=== PATIENT | female | born 1930 | race Caucasian/White ===

== ENCOUNTER → 2017-04-16 | Outpatient (CLI) | payer MEDICARE ==
[2016-05-19 22:36] VITALS: BP 186/83
--- NOTE | 2017-04-16 10:45 | KCIC ---
HAND RIGHT 3V History: Right hand pain and weakness worse for 3 weeks Comparison: None. Findings: 3 views of the right hand are submitted. There is bone demineralization. 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 There is fusion of the fourth and fifth distal interphalangeal joints. No acute fracture is identified. Impression: 1. 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 There is fusion of the fourth and fifth distal interphalangeal joints. 2. There is bone demineralization. Electronically signed by: Vern Boo MD (04/16/2017 10:41 AM) [id number]
== END | disposition home or self-care (01) ==
LOC: KCIC 10:19
PROVIDERS: ATTEND Nurse Practitioner Family
DX: M19.041 Primary osteoarthritis, right hand (principal); M81.0 Age-related osteoporosis without current pathological fracture; R53.1 Weakness
CPT/HCPCS: 73130

== ENCOUNTER → 2017-05-07 | Outpatient (CLI) | payer MEDICARE ==
[2016-05-19 22:36] VITALS: BP 186/83
--- NOTE | 2017-05-07 16:41 | KCIC ---
AP radiograph of the abdomen 05/07/2017 CLINICAL HISTORY: Abdominal pain and bloating for one week. An AP supine digital radiograph of the abdomen/pelvis was obtained. Surgical clips are seen within the right upper quadrant of the abdomen consistent with a cholecystectomy. The patient is post kyphoplasty type procedure involving the T12, L1 and L3 vertebral bodies. The abdominal bowel gas pattern is nonobstructive. A moderate to large amount of stool is seen throughout the colon. Calcifications are seen within the pelvis consistent with phleboliths. There is diffuse osteopenia of the visualized bony structures. Degenerative changes are seen involving the lower thoracic and throughout the lumbar spine and both hips. IMPRESSION: Nonobstructive bowel gas pattern. Moderate to large amount of stool is seen throughout the colon. Electronically signed by: Kingsley Bravo MD (05/07/2017 4:38 PM) [id number]
== END | disposition home or self-care (01) ==
LOC: KCIC 15:32
PROVIDERS: ATTEND Nurse Practitioner Family
DX: R10.9 Unspecified abdominal pain (principal); R14.0 Abdominal distension (gaseous); M85.80 Other specified disorders of bone density and structure, unspecified site
CPT/HCPCS: 74000

== ENCOUNTER 2018-01-10 21:51 | Emergency (ER) | payer MEDICARE ==
[2018-01-10 22:40] LABS: ADD MAN DIFF? NO
[2018-01-10 22:46] LABS: BASO # 0.1 x10^3/uL (0.0-0.2); BASO % 1 % (0-3); EOS # 0.2 x10^3/uL (0.0-0.7); EOS % 3 % (0-3); HEMATOCRIT 47.8 % (36.0-47.0); HEMOGLOBIN 16.4 g/dL (12.0-15.5); LYMPH # 2.1 x10^3/uL (1.0-4.8); LYMPH % 28 % (24-48); MEAN CORPUSCULAR HEMOGLOBIN 30 pg (25-35); MEAN CORPUSCULAR HGB CONC 34 g/dL (31-37); MEAN CORPUSCULAR VOLUME 89 fL (79-100); MONO # 0.6 x10^3/uL (0.0-1.1); MONO % 8 % (0-9); NEUT # 4.5 x10^3uL (1.8-7.7); NEUT % 60 % (31-73); PLATELET COUNT 144 x10^3/uL (140-400); RED BLOOD COUNT 5.39 x10^6/uL (3.50-5.40); RED CELL DISTRIBUTION WIDTH 14.9 % (11.5-14.5); WHITE BLOOD COUNT 7.5 x10^3/uL (4.0-11.0)
[2018-01-10 22:55] LABS: ANION GAP 11 (6-14); BLOOD UREA NITROGEN 24 mg/dL (7-20); BUN/CREATININE RATIO 27 (6-20); CALCIUM 10.3 mg/dL (8.5-10.1); CARBON DIOXIDE 28 mmol/L (21-32); CHLORIDE 104 mmol/L (98-107); CREATININE 0.9 mg/dL (0.6-1.0); GFR 59.4; GLUCOSE 104 mg/dL (70-99); POTASSIUM 3.9 mmol/L (3.5-5.1); SODIUM 143 mmol/L (136-145)
[2018-01-10] MEDS: LABETALOL 20 MG/4 ML DISP.SYRIN. IVP (22:55)
[2018-01-10 23:01] LABS: ALBUMIN/GLOBULIN RATIO 1.1 (1.0-1.7); ALK PHOS 133 U/L (46-116); ALT (SGPT) 23 U/L (14-59); AST (SGOT) 16 U/L (15-37); TOTAL BILIRUBIN 0.3 mg/dL (0.2-1.0); TOTAL PROTEIN 7.5 g/dL (6.4-8.2)
[2018-01-10 23:02] LABS: TROPONINI < 0.017 ng/mL (0.000-0.055)
== END 2018-01-11 00:20 | disposition home or self-care (01) ==
LOC: ER 01-11 00:20
DX: I10 Essential (primary) hypertension (principal); R42 Dizziness and giddiness; E78.00 Pure hypercholesterolemia, unspecified; Z88.5 Allergy status to narcotic agent; Z88.6 Allergy status to analgesic agent; Z88.8 Allergy status to other drugs, medicaments and biological substances
CPT/HCPCS: 36415; 51701; 80053; 84484; 85025; 93005; 96374; 99285-25; J3490

== ENCOUNTER 2018-01-14 21:02 | Emergency (ER) | payer MEDICARE ==
[2018-01-14] MEDS: amLODIPine BESYLATE 5 MG TABLET PO (21:56)
== END 2018-01-14 22:45 | disposition home or self-care (01) ==
LOC: ER 21:02
DX: I10 Essential (primary) hypertension (principal); E78.00 Pure hypercholesterolemia, unspecified; Z88.5 Allergy status to narcotic agent; Z88.6 Allergy status to analgesic agent; Z88.8 Allergy status to other drugs, medicaments and biological substances
CPT/HCPCS: 93005; 99284-25

== ENCOUNTER → 2018-02-13 | Outpatient (CLI) | payer MEDICARE | END | disposition home or self-care (01) | LOC: KCIC CT 11:02 | DX: J32.2 Chronic ethmoidal sinusitis (principal); R42 Dizziness and giddiness; I10 Essential (primary) hypertension | CPT/HCPCS: 70486 ==

== ENCOUNTER 2018-03-31 10:08 | Inpatient (IN) | payer MEDICARE ==
[2018-03-31] VITALS (9 sets, daily range): BP systolic 93–138; BP diastolic 46–77
[~2018-03-31] VITALS: Ht 162.6 cm; Wt 79.4 kg
[~2018-03-31 10:08] MED LIST: ACET325T9 PO; AMLO5TAB7 PO; BRIM5DRO3 OP; FLUT9.9S NS; LATA2.5D3 EACHEYE; MAGN400C PO; MELA10CA PO; MULT1TAB52 PO; OSEL75CA PO; OXYB5TAB7 PO; SIMV20TA PO; TRAM50TA PO; UBID100C26 PO; ZOLP5TAB PO; [UNRECOGNIZED DRUG - OTHER] PO
[2018-03-31] MEDS ORDERED: ASPIRIN 325 MG TABLET PO ONE (10:30)
--- NOTE | 2018-03-31 10:33 | PHYS DOC ---
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 she woke up this morning, felt her heart was racing. Patient denies any chest pain, no trouble breathing, no history of A. fib or atrial flutter. Patient denies any history of thyroid problem. Patient denies any nausea vomiting, no fever, no cough, no abdominal pain. Review of Systems Review of Systems Constitutional: Denies fever or chills [] Eyes: Denies change in visual acuity, redness, or eye pain [] HENT: Denies nasal congestion or sore throat [] Respiratory: Denies cough or shortness of breath [] Cardiovascular: no chest pain, no shortness of air, positive for heart palpitation. GI: Denies abdominal pain, nausea, vomiting, bloody stools or diarrhea [] : Denies dysuria or hematuria [] Musculoskeletal: Denies back pain or joint pain [] Integument: Denies rash or skin lesions [] Neurologic: Denies headache, focal weakness or sensory changes [] Endocrine: Denies polyuria or polydipsia [] All other systems were reviewed and found to be within normal limits, except as documented in this note. Current Medications Current Medications Current Medications Medications (Trade) Dose Ordered Sig/Pacheco Start Time Stop Time Status Last Admin Dose Admin Aspirin (Titus Aspirin) 325 mg 1X ONCE 03/31/18 10:30 03/31/18 10:37 DC 03/31/18 11:02 325 MG Diltiazem HCl (Cardizem) 20 mg 1X ONCE 03/31/18 11:00 03/31/18 11:01 DC 03/31/18 11:18 20 MG Diltiazem HCl 125 mg/Dextrose 125 ml @ 0 mls/hr 1X STAT 03/31/18 11:13 03/31/18 11:21 DC 03/31/18 11:36 5 MLS/HR Allergies Allergies Allergies Coded Allergies Type Severity Reaction Last Updated Verified desloratadine Allergy Intermediate 05/19/16 Yes diclofenac Allergy Intermediate 05/19/16 Yes hydrocodone Allergy Intermediate "doesn't work", constipation 11/03/17 Yes lisinopril Allergy Intermediate 05/19/16 Yes meclizine Allergy Intermediate 05/19/16 Yes naphazoline Allergy Intermediate 05/19/16 Yes naproxen Allergy Intermediate 05/19/16 Yes ropinirole Allergy Intermediate 05/19/16 Yes sertraline Allergy Intermediate 05/19/16 Yes venlafaxine Allergy Intermediate 05/19/16 Yes codeine Adverse Reaction Intermediate "doesn't work", constipation 11/03/17 Yes Physical Exam Physical Exam Constitutional: Well developed, well nourished, no acute distress, non-toxic appearance. [] HENT: Normocephalic, atraumatic, bilateral external ears normal, oropharynx moist, no oral exudates, nose normal. [] Eyes: PERRLA, EOMI, conjunctiva normal, no discharge. [] Neck: Normal range of motion, no tenderness, supple, no stridor. [] Cardiovascular:rapid irregular heart rate. no murmur [] Lungs & Thorax: Bilateral breath sounds clear to auscultation [] Abdomen: Bowel sounds normal, soft, no tenderness, no masses, no pulsatile masses. [] Skin: Warm, dry, no erythema, no rash. [] Back: No tenderness, no CVA tenderness. [] Extremities: No tenderness, no cyanosis, no clubbing, ROM intact, no edema. [] Neurologic: Alert and oriented X 3, normal motor function, normal sensory function, no focal deficits noted. [] Psychologic: Affect normal, judgement normal, mood normal. [] Current Patient Data Vital Signs Vital Signs Date Time Temp Pulse Resp B/P (MAP) Pulse Ox O2 Delivery O2 Flow Rate FiO2 03/31/18 11:18 125 115/70 03/31/18 10:13 98.4 20 92 Room Air 98.4 Lab Values Laboratory Tests Test 03/31/18 11:13 White Blood Count 8.9 x10^3/uL (4.0-11.0) Red Blood Count 5.20 x10^6/uL (3.50-5.40) Hemoglobin 16.2 g/dL (12.0-15.5) H Hematocrit 46.5 % (36.0-47.0) Mean Corpuscular Volume 89 fL (79-100) Mean Corpuscular Hemoglobin 31 pg (25-35) Mean Corpuscular Hemoglobin Concent 35 g/dL (31-37) Red Cell Distribution Width 14.0 % (11.5-14.5) Platelet Count 152 x10^3/uL (140-400) Neutrophils (%) (Auto) 74 % (31-73) H Lymphocytes (%) (Auto) 16 % (24-48) L Monocytes (%) (Auto) 8 % (0-9) Eosinophils (%) (Auto) 1 % (0-3) Basophils (%) (Auto) 1 % (0-3) Neutrophils # (Auto) 6.6 x10^3uL (1.8-7.7) Lymphocytes # (Auto) 1.5 x10^3/uL (1.0-4.8) Monocytes # (Auto) 0.7 x10^3/uL (0.0-1.1) Eosinophils # (Auto) 0.1 x10^3/uL (0.0-0.7) Basophils # (Auto) 0.1 x10^3/uL (0.0-0.2) Prothrombin Time 12.3 SEC (11.7-14.0) Prothrombin Time INR 1.0 (0.8-1.1) PTT 24 SEC (24-38) Sodium Level 143 mmol/L (136-145) Potassium Level 3.6 mmol/L (3.5-5.1) Chloride Level 101 mmol/L (98-107) Carbon Dioxide Level 32 mmol/L (21-32) Anion Gap 10 (6-14) Blood Urea Nitrogen 29 mg/dL (7-20) H Creatinine 1.0 mg/dL (0.6-1.0) Estimated GFR (Cockcroft-Gault) 52.6 BUN/Creatinine Ratio 29 (6-20) H Glucose Level 100 mg/dL (70-99) H Calcium Level 9.7 mg/dL (8.5-10.1) Magnesium Level 2.3 mg/dL (1.8-2.4) Total Bilirubin 0.6 mg/dL (0.2-1.0) Aspartate Amino Transferase (AST) 18 U/L (15-37) Alanine Aminotransferase (ALT) 23 U/L (14-59) Alkaline Phosphatase 112 U/L (46-116) Troponin I Quantitative < 0.017 ng/mL (0.000-0.055) Total Protein 7.1 g/dL (6.4-8.2) Albumin 3.8 g/dL (3.4-5.0) Albumin/Globulin Ratio 1.2 (1.0-1.7) Thyroid Stimulating Hormone (TSH) 2.649 uIU/mL (0.358-3.74) Free Thyroxine 1.01 ng/dL (0.76-1.46) Laboratory Tests 03/31/18 11:13 Laboratory Tests 03/31/18 11:13 EKG EKG ekg: heart rate of 132 bpm, afib with rvr.[] Radiology/Procedures Radiology/Procedures [][facility] [address] [place] [address] IMAGING REPORT Signed PATIENT: QUITA FRANCO ACCOUNT: [id number] : 1930 LOCATION: ER AGE: 87 SEX: F EXAM STATUS: REG ER ORD. PHYSICIAN: RIN BEE DO REASON: heart palpitation PROCEDURE: PORTABLE CHEST 1V Exam: AP portable chest History: Heart palpitations. Comparison: July 26, 2017. Findings: Patient is rotated. Cardiac silhouette appears at the upper limits of normal for size given positioning. Aortic atherosclerosis is seen. Lungs are without infiltrate. No pleural effusion or pneumothorax is identified. Old right rib fractures are present. Impression: 1. No acute cardiopulmonary process. Electronically signed by: Riccardo Tiwari MD (03/31/2018 11:01 AM) [facility] DICTATED and SIGNED BY: RICCARDO TIWARI MD DATE: 03/31/18 1100 Impressions: atrial fib with RVR Course & Med Decision Making Course & Med Decision Making Pertinent Labs and Imaging studies reviewed. (See chart for details) Patient was given cardizem bolus and drip in the ER. Discussed with Dr. Db Fox, patient's head esthetician, recommended admission, will see patient as clinical services consultant in the hospital. Dragon Disclaimer Dragon Disclaimer This electronic medical record was generated, in whole or in part, using a voice recognition dictation system. Departure Departure Impression: Primary Impression: Atrial fibrillation with tachycardic ventricular rate Disposition: ADMITTED INPATIENT Admitting Physician: Leonardo Melgar Condition: STABLE Referrals: LUIS STANFORD APRN (PCP) RIN BEE DO Mar 31, 2018 10:33
--- NOTE | 2018-03-31 10:47 | EKG ---
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
[2018-03-31] MEDS ORDERED: dilTIAZem IV PUSH 25 MG/5 ML VIAL IVP ONE (11:00)
--- NOTE | 2018-03-31 11:05 | RAD ---
Exam: AP portable chest History: Heart palpitations. Comparison: July 26, 2017. Findings: Patient is rotated. Cardiac silhouette appears at the upper limits of normal for size given positioning. Aortic atherosclerosis is seen. Lungs are without infiltrate. No pleural effusion or pneumothorax is identified. Old right rib fractures are present. Impression: 1. No acute cardiopulmonary process. Electronically signed by: Riccardo Mccann MD (03/31/2018 11:01 AM) [place] [id number]
[2018-03-31] MEDS ORDERED: dilTIAZem INJ 125 MG in IV DEXTROSE 5% 100ML 100 ML IV STA (11:13)
[2018-03-31 11:27] LABS: BASO # 0.1 x10^3/uL (0.0-0.2); BASO % 1 % (0-3); EOS # 0.1 x10^3/uL (0.0-0.7); EOS % 1 % (0-3); HEMATOCRIT 46.5 % (36.0-47.0); HEMOGLOBIN 16.2 g/dL (12.0-15.5); LYMPH # 1.5 x10^3/uL (1.0-4.8); LYMPH % 16 % (24-48); MEAN CORPUSCULAR HEMOGLOBIN 31 pg (25-35); MEAN CORPUSCULAR HGB CONC 35 g/dL (31-37); MEAN CORPUSCULAR VOLUME 89 fL (79-100); MONO # 0.7 x10^3/uL (0.0-1.1); MONO % 8 % (0-9); NEUT # 6.6 x10^3uL (1.8-7.7); NEUT % 74 % (31-73); PLATELET COUNT 152 x10^3/uL (140-400); WHITE BLOOD COUNT 8.9 x10^3/uL (4.0-11.0)
[2018-03-31 11:35] LABS: PROTHROMBIN TIME PATIENT 12.3 SEC (11.7-14.0)
[2018-03-31 11:40] LABS: CALCIUM 9.7 mg/dL (8.5-10.1); GFR 52.6; POTASSIUM 3.6 mmol/L (3.5-5.1)
[2018-03-31 11:46] LABS: ALBUMIN 3.8 g/dL (3.4-5.0); ALBUMIN/GLOBULIN RATIO 1.2 (1.0-1.7); MAGNESIUM 2.3 mg/dL (1.8-2.4); TOTAL BILIRUBIN 0.6 mg/dL (0.2-1.0); TOTAL PROTEIN 7.1 g/dL (6.4-8.2)
[2018-03-31 11:54] LABS: FREE T4 1.01 ng/dL (0.76-1.46); THYROID STIM HORMONE (TSH) 2.649 uIU/mL (0.358-3.74)
[2018-03-31 12:08] LABS: BILIRUBIN,URINE NEGATIVE (NEG); CLARITY,URINE CLEAR; COLOR,URINE YELLOW; NITRITE,URINE NEGATIVE (NEG); PROTEIN,URINE NEGATIVE (NEG-TRACE); UROBILINOGEN,URINE 0.2 mg/dL (0.2 mg/dL)
[2018-03-31 12:12] LABS: CREATINE KINASE 60 U/L (26-192)
[2018-03-31] MEDS ORDERED: ONDANSETRON PF 4 MG/2 ML VIAL. IV PRN (12:15)
[2018-03-31 12:18] LABS: HYALINE CASTS, URINE FEW /HPF
[2018-03-31 12:19] LABS: AMORPHOUS SEDIMENT,UR PRESENT /HPF; BACTERIA,URINE 0 /HPF (0-FEW); RBC,URINE 0 /HPF (0-2); WBC,URINE OCC /HPF (0-4)
--- NOTE | 2018-03-31 16:14 | PDOC1 ---
History and Physical Date of Admission Date of Admission DATE: 03/31/18 TIME: 16:13 Identification/Chief Complaint Chief Complaint seen in ER 87 year old female was brought here by EMS for evaluation of rapid heart rate OF 126. 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 Past Surgical History: Cholecystectomy, Hysterectomy Additional Past Surgical Histo: hernia back sx eye sx 3 total knee sx Alcohol Use: None family hx hlp, htn Cardiovascular: HTN, Hyperlipidemia ENT: No pertinent hx Dermatology: No pertinent hx Past Surgical History Past Surgical History: Cholecystectomy, Cataract Removal, Hernia Repair, Total knee replacement, Hysterectomy Family History Family History: Hypertension Social History Smoke: No ALCOHOL: none Drugs: None Current Problem List Problem List Problems Medical Problems: (1) Atrial fibrillation with tachycardic ventricular rate Status: Acute Current Medications Current Medications Current Medications Aspirin (Titus Aspirin) 325 mg 1X ONCE PO Last administered on 03/31/18at 11:02 ; Start 03/31/18 at 10:30; Stop 03/31/18 at 10:37; Status DC Diltiazem HCl (Cardizem) 20 mg 1X ONCE IVP Last administered on 03/31/18at 11: 18; Start 03/31/18 at 11:00; Stop 03/31/18 at 11:01; Status DC Diltiazem HCl 125 mg/Dextrose 125 ml @ 0 mls/hr 1X STAT IV Last administered on 03/31/18at 11:36; Start 03/31/18 at 11:13; Stop 03/31/18 at 11:21; Status DC Ondansetron HCl (Zofran) 4 mg PRN Q8HRS PRN IV NAUSEA/VOMITING; Start 03/31/18 at 12:15; Stop 04/01/18 at 12:14 Active Scripts Active Reported Flonase Allergy Relief (Fluticasone Propionate) 9.9 Ml Mcdonald.susp 2 Sprays NS BID Tylenol (Acetaminophen) 325 Mg Tablet 2 Tab PO Q6HRS PRN Alphagan P (Brimonidine Tartrate) 5 Ml Drops 5 Ml OP BID Latanoprost 2.5 Ml Drops 1 Drop EACHEYE QHS Magnesium (Magnesium Oxide) 400 Mg Capsule 250 Mg PO DAILY Coq-10 (Ubidecarenone) 100 Mg Capsule 100 Mg PO DAILY Melatonin 10 Mg Capsule 10 Mg PO HS Ribozel 159 mg Capsule (B1/B2/B3/B5/B6/Fa/B12/C) 1 Each Capsule 1 Each PO DAILY Multivitamins (Multivitamin) 1 Each Tablet 1 Tab PO DAILY Amlodipine Besylate 5 Mg Tablet 10 Mg PO DAILY Zocor (Simvastatin) 20 Mg Tablet 1 Tab PO DAILY Allergies Allergies: Coded Allergies: desloratadine (Verified Allergy, Intermediate, 05/19/16) diclofenac (Verified Allergy, Intermediate, 05/19/16) hydrocodone (Verified Allergy, Intermediate, "doesn't work", constipation , 11/03/17) lisinopril (Verified Allergy, Intermediate, 05/19/16) meclizine (Verified Allergy, Intermediate, 05/19/16) naphazoline (Verified Allergy, Intermediate, 05/19/16) naproxen (Verified Allergy, Intermediate, 05/19/16) ropinirole (Verified Allergy, Intermediate, 05/19/16) sertraline (Verified Allergy, Intermediate, 05/19/16) venlafaxine (Verified Allergy, Intermediate, 05/19/16) codeine (Verified Adverse Reaction, Intermediate, "doesn't work", constipation, 11/03/17) ROS Review of System Review of Systems Review of Systems Constitutional: Denies fever or chills [] Eyes: Denies change in visual acuity, redness, or eye pain [] HENT: Denies nasal congestion or sore throat [] Respiratory: Denies cough or shortness of breath [] Cardiovascular: no chest pain, no shortness of air, positive for heart palpitation. GI: Denies abdominal pain, nausea, vomiting, bloody stools or diarrhea [] : Denies dysuria or hematuria [] Musculoskeletal: Denies back pain or joint pain [] Integument: Denies rash or skin lesions [] Neurologic: Denies headache, focal weakness or sensory changes [] Endocrine: Denies polyuria or polydipsia [] 14 PT systems were reviewed and found to be within normal limits, except as documented . Skin: Yes Dry Skin Physical Exam Physical Exam Physical Exam Physical Exam Constitutional: Well developed, well nourished, MILD acute distress, non-toxic appearance. [] HENT: Normocephalic, atraumatic, bilateral external ears normal, oropharynx moist, no oral exudates, nose normal. [] Eyes: PERRLA, EOMI, conjunctiva normal, no discharge. [] Neck: Normal range of motion, no tenderness, supple, no stridor. [] Cardiovascular:rapid irregular heart rate. no murmur [] Lungs & Thorax: Bilateral breath sounds clear to auscultation [] Abdomen: Bowel sounds normal, soft, no tenderness, no masses, no pulsatile masses. [] Skin: Warm, dry, no erythema, no rash. [] Back: No tenderness, no CVA tenderness. [] Extremities: No tenderness, no cyanosis, no clubbing, ROM intact, no edema. [] Neurologic: Alert and oriented X 3, normal motor function, normal sensory function, no focal deficits noted. [] Psychologic: Affect normal, judgement normal, mood normal. [] General: Alert, Oriented X3, Cooperative, mild distress Lungs: Clear to auscultation Heart: irregularly irregular Breasts: Not examined PELVIC: Examination not indicated Extremities: Normal pulses Skin: No breakdown Neuro: Normal speech, Cranial nerves 3-12 NL Psych/Mental Status: Mental status NL, Mood NL Vitals Vitals Vital Signs Date Time Temp Pulse Resp B/P (MAP) Pulse Ox O2 Delivery O2 Flow Rate FiO2 03/31/18 14:56 97.9 72 18 126/68 (87) 95 Room Air 97.9 Labs Labs Laboratory Tests Test 03/31/18 11:13 03/31/18 11:59 03/31/18 15:13 White Blood Count 8.9 x10^3/uL (4.0-11.0) Red Blood Count 5.20 x10^6/uL (3.50-5.40) Hemoglobin 16.2 g/dL (12.0-15.5) Hematocrit 46.5 % (36.0-47.0) Mean Corpuscular Volume 89 fL (79-100) Mean Corpuscular Hemoglobin 31 pg (25-35) Mean Corpuscular Hemoglobin Concent 35 g/dL (31-37) Red Cell Distribution Width 14.0 % (11.5-14.5) Platelet Count 152 x10^3/uL (140-400) Neutrophils (%) (Auto) 74 % (31-73) Lymphocytes (%) (Auto) 16 % (24-48) Monocytes (%) (Auto) 8 % (0-9) Eosinophils (%) (Auto) 1 % (0-3) Basophils (%) (Auto) 1 % (0-3) Neutrophils # (Auto) 6.6 x10^3uL (1.8-7.7) Lymphocytes # (Auto) 1.5 x10^3/uL (1.0-4.8) Monocytes # (Auto) 0.7 x10^3/uL (0.0-1.1) Eosinophils # (Auto) 0.1 x10^3/uL (0.0-0.7) Basophils # (Auto) 0.1 x10^3/uL (0.0-0.2) Prothrombin Time 12.3 SEC (11.7-14.0) Prothromb Time International Ratio 1.0 (0.8-1.1) Activated Partial Thromboplast Time 24 SEC (24-38) Sodium Level 143 mmol/L (136-145) Potassium Level 3.6 mmol/L (3.5-5.1) Chloride Level 101 mmol/L (98-107) Carbon Dioxide Level 32 mmol/L (21-32) Anion Gap 10 (6-14) Blood Urea Nitrogen 29 mg/dL (7-20) Creatinine 1.0 mg/dL (0.6-1.0) Estimated GFR (Cockcroft-Gault) 52.6 BUN/Creatinine Ratio 29 (6-20) Glucose Level 100 mg/dL (70-99) Calcium Level 9.7 mg/dL (8.5-10.1) Magnesium Level 2.3 mg/dL (1.8-2.4) Total Bilirubin 0.6 mg/dL (0.2-1.0) Aspartate Amino Transf (AST/SGOT) 18 U/L (15-37) Alanine Aminotransferase (ALT/SGPT) 23 U/L (14-59) Alkaline Phosphatase 112 U/L (46-116) Creatine Kinase 60 U/L (26-192) Creatine Kinase MB (Mass) 1.1 ng/mL (0.0-3.6) Creatine Kinase MB Relative Index % (0-4) Troponin I Quantitative < 0.017 ng/mL (0.000-0.055) < 0.017 ng/mL (0.000-0.055) LC-Lfn-M-Type Natriuretic Peptide 724 pg/mL (0-449) Total Protein 7.1 g/dL (6.4-8.2) Albumin 3.8 g/dL (3.4-5.0) Albumin/Globulin Ratio 1.2 (1.0-1.7) Thyroid Stimulating Hormone (TSH) 2.649 uIU/mL (0.358-3.74) Free Thyroxine 1.01 ng/dL (0.76-1.46) Urine Collection Type U cath Urine Color Yellow Urine Clarity Clear Urine pH 6.0 Urine Specific Pitcher 1.010 Urine Protein Negative mg/dL (NEG-TRACE) Urine Glucose (UA) Negative mg/dL (NEG) Urine Ketones (Stick) Negative mg/dL (NEG) Urine Blood Negative (NEG) Urine Nitrite Negative (NEG) Urine Bilirubin Negative (NEG) Urine Urobilinogen Dipstick 0.2 mg/dL (0.2 mg/dL) Urine Leukocyte Esterase Negative (NEG) Urine RBC 0 /HPF (0-2) Urine WBC Occ /HPF (0-4) Urine Amorphous Sediment Present /HPF Urine Bacteria 0 /HPF (0-FEW) Urine Hyaline Casts Few /HPF Laboratory Tests Test 03/31/18 11:13 03/31/18 11:59 03/31/18 15:13 White Blood Count 8.9 x10^3/uL (4.0-11.0) Red Blood Count 5.20 x10^6/uL (3.50-5.40) Hemoglobin 16.2 g/dL (12.0-15.5) Hematocrit 46.5 % (36.0-47.0) Mean Corpuscular Volume 89 fL (79-100) Mean Corpuscular Hemoglobin 31 pg (25-35) Mean Corpuscular Hemoglobin Concent 35 g/dL (31-37) Red Cell Distribution Width 14.0 % (11.5-14.5) Platelet Count 152 x10^3/uL (140-400) Neutrophils (%) (Auto) 74 % (31-73) Lymphocytes (%) (Auto) 16 % (24-48) Monocytes (%) (Auto) 8 % (0-9) Eosinophils (%) (Auto) 1 % (0-3) Basophils (%) (Auto) 1 % (0-3) Neutrophils # (Auto) 6.6 x10^3uL (1.8-7.7) Lymphocytes # (Auto) 1.5 x10^3/uL (1.0-4.8) Monocytes # (Auto) 0.7 x10^3/uL (0.0-1.1) Eosinophils # (Auto) 0.1 x10^3/uL (0.0-0.7) Basophils # (Auto) 0.1 x10^3/uL (0.0-0.2) Prothrombin Time 12.3 SEC (11.7-14.0) Prothromb Time International Ratio 1.0 (0.8-1.1) Activated Partial Thromboplast Time 24 SEC (24-38) Sodium Level 143 mmol/L (136-145) Potassium Level 3.6 mmol/L (3.5-5.1) Chloride Level 101 mmol/L (98-107) Carbon Dioxide Level 32 mmol/L (21-32) Anion Gap 10 (6-14) Blood Urea Nitrogen 29 mg/dL (7-20) Creatinine 1.0 mg/dL (0.6-1.0) Estimated GFR (Cockcroft-Gault) 52.6 BUN/Creatinine Ratio 29 (6-20) Glucose Level 100 mg/dL (70-99) Calcium Level 9.7 mg/dL (8.5-10.1) Magnesium Level 2.3 mg/dL (1.8-2.4) Total Bilirubin 0.6 mg/dL (0.2-1.0) Aspartate Amino Transf (AST/SGOT) 18 U/L (15-37) Alanine Aminotransferase (ALT/SGPT) 23 U/L (14-59) Alkaline Phosphatase 112 U/L (46-116) Creatine Kinase 60 U/L (26-192) Creatine Kinase MB (Mass) 1.1 ng/mL (0.0-3.6) Creatine Kinase MB Relative Index % (0-4) Troponin I Quantitative < 0.017 ng/mL (0.000-0.055) < 0.017 ng/mL (0.000-0.055) MK-Tez-A-Type Natriuretic Peptide 724 pg/mL (0-449) Total Protein 7.1 g/dL (6.4-8.2) Albumin 3.8 g/dL (3.4-5.0) Albumin/Globulin Ratio 1.2 (1.0-1.7) Thyroid Stimulating Hormone (TSH) 2.649 uIU/mL (0.358-3.74) Free Thyroxine 1.01 ng/dL (0.76-1.46) Urine Collection Type U cath Urine Color Yellow Urine Clarity Clear Urine pH 6.0 Urine Specific Pitcher 1.010 Urine Protein Negative mg/dL (NEG-TRACE) Urine Glucose (UA) Negative mg/dL (NEG) Urine Ketones (Stick) Negative mg/dL (NEG) Urine Blood Negative (NEG) Urine Nitrite Negative (NEG) Urine Bilirubin Negative (NEG) Urine Urobilinogen Dipstick 0.2 mg/dL (0.2 mg/dL) Urine Leukocyte Esterase Negative (NEG) Urine RBC 0 /HPF (0-2) Urine WBC Occ /HPF (0-4) Urine Amorphous Sediment Present /HPF Urine Bacteria 0 /HPF (0-FEW) Urine Hyaline Casts Few /HPF VTE Prophylaxis Ordered VTE Prophylaxis Devices: Yes VTE Pharmacological Prophylaxi: Yes Assessment/Plan Assessment/Plan Impression: Atrial fibrillation with tachycardic ventricular rate hypertension hyperlipidemia PLAN ADMITTED INPATIENT CARDIZE DRIP Protocol bp control lovenox sq dvt prophylaxis DEBBI SNYDER MD Mar 31, 2018 16:14
[2018-03-31] MEDS ORDERED: ACETAMINOPHEN 325 MG TABLET. PO PRN (16:15)
[2018-03-31] MEDS ORDERED: ZOLP5TAB PO (16:21)
[2018-03-31] MEDS ORDERED: ZOLPIDEM 5 MG TABLET. PO PRN (16:30)
--- NOTE | 2018-03-31 17:30 | PDOC2 ---
CONSULT Date of Consult Date of Consult DATE: 03/31/18 TIME: 17:25 Reason for Consult Reason for Consult: Palpitations, tachycardia Referring Physician Referring Physician: Dr. Sosa Identification/Chief Complaint Chief Complaint Palpitations and tachycardia History of Present Illness Reason for Visit: This patient is a very pleasant 87-year-old lady that has a known history of hypertension and has been doing rather well. She woke up today feeling like his heart was racing and pounding in her chest. She checked her blood pressure and pulse at home and found it to be over 100. The patient was brought to the emergency room where she was found to be in atrial fibrillation with a rapid ventricular response of 126. In view of this he was decided to bring the patient in. At the time that I saw the patient the patient denies having any chest pains. She was started on an IV Cardizem drip and with this the heart rate is now in the 80s. She continues to be in atrial fibrillation. Patient denies any loss of consciousness. Past Medical History Cardiovascular: HTN, Hyperlipidemia Musculoskeletal: Osteoarthritis ENT: No pertinent hx Dermatology: No pertinent hx Past Surgical History Past Surgical History: Cholecystectomy, Cataract Removal, Hernia Repair, Total knee replacement, Hysterectomy Family History Family History: Hypertension Social History No ALCOHOL: none Drugs: None Lives: Alone Current Problem List Problem List Problems Medical Problems: (1) Atrial fibrillation with tachycardic ventricular rate Status: Acute Current Medications Current Medications Current Medications Aspirin (Titus Aspirin) 325 mg 1X ONCE PO Last administered on 03/31/18at 11:02 ; Start 03/31/18 at 10:30; Stop 03/31/18 at 10:37; Status DC Diltiazem HCl (Cardizem) 20 mg 1X ONCE IVP Last administered on 03/31/18at 11: 18; Start 03/31/18 at 11:00; Stop 03/31/18 at 11:01; Status DC Diltiazem HCl 125 mg/Dextrose 125 ml @ 0 mls/hr 1X STAT IV Last administered on 03/31/18at 11:36; Start 03/31/18 at 11:13; Stop 03/31/18 at 11:21; Status DC Ondansetron HCl (Zofran) 4 mg PRN Q8HRS PRN IV NAUSEA/VOMITING; Start 03/31/18 at 12:15; Stop 04/01/18 at 12:14 Acetaminophen (Tylenol) 650 mg PRN Q6HRS PRN PO MILD PAIN; Start 03/31/18 at 16 :15 Amlodipine Besylate (Norvasc) 10 mg DAILY PO ; Start 04/01/18 at 09:00 Vitamin B Complex (Elton B) 1 tab DAILY PO ; Start 04/01/18 at 09:00 Brimonidine Tartrate (Alphagan) 1 drop BID OU ; Start 03/31/18 at 21:00 Fluticasone Propionate (Flonase) 1 spray BID NS ; Start 03/31/18 at 21:00 Latanoprost (Xalatan) 1 drop QHS OU ; Start 03/31/18 at 21:00 Magnesium Oxide (Magnesium Oxide) 400 mg DAILY PO ; Start 04/01/18 at 09:00 Non-Formulary Medication (Melatonin ) 10 mg HS PO ; Start 03/31/18 at 21:00; Status UNV Multivitamins (Thera M Plus) 1 tab DAILY PO ; Start 04/01/18 at 09:00 Simvastatin (Zocor) 20 mg HS PO ; Start 03/31/18 at 21:00 Non-Formulary Medication (Ubidecarenone (Coq-10)) 100 mg DAILY PO ; Start at 09:00; Status UNV Zolpidem Tartrate (Ambien) 5 mg PRN QHS PRN PO INSOMNIA; Start 03/31/18 at 16: 30 Active Scripts Active Reported Ambien (Zolpidem Tartrate) 5 Mg Tablet 1 Tab PO QHS PRN Flonase Allergy Relief (Fluticasone Propionate) 9.9 Ml [place].susp 2 Sprays NS BID Tylenol (Acetaminophen) 325 Mg Tablet 2 Tab PO Q6HRS PRN Alphagan P (Brimonidine Tartrate) 5 Ml Drops 5 Ml OP BID Latanoprost 2.5 Ml Drops 1 Drop EACHEYE QHS Magnesium (Magnesium Oxide) 400 Mg Capsule 250 Mg PO DAILY Coq-10 (Ubidecarenone) 100 Mg Capsule 100 Mg PO DAILY Melatonin 10 Mg Capsule 10 Mg PO HS Ribozel 159 mg Capsule (B1/B2/B3/B5/B6/Fa/B12/C) 1 Each Capsule 1 Each PO DAILY Multivitamins (Multivitamin) 1 Each Tablet 1 Tab PO DAILY Amlodipine Besylate 5 Mg Tablet 10 Mg PO DAILY Zocor (Simvastatin) 20 Mg Tablet 1 Tab PO DAILY Allergies Allergies: Coded Allergies: desloratadine (Verified Allergy, Intermediate, 05/19/16) diclofenac (Verified Allergy, Intermediate, 05/19/16) hydrocodone (Verified Allergy, Intermediate, "doesn't work", constipation , 11/03/17) lisinopril (Verified Allergy, Intermediate, 05/19/16) meclizine (Verified Allergy, Intermediate, 05/19/16) naphazoline (Verified Allergy, Intermediate, 05/19/16) naproxen (Verified Allergy, Intermediate, 05/19/16) ropinirole (Verified Allergy, Intermediate, 05/19/16) sertraline (Verified Allergy, Intermediate, 05/19/16) venlafaxine (Verified Allergy, Intermediate, 05/19/16) codeine (Verified Adverse Reaction, Intermediate, "doesn't work", constipation, 11/03/17) Physical Exam General: Alert, Oriented X3, Cooperative HEENT: Atraumatic, PERRLA Lungs: Clear to auscultation Heart: Other (irregularly irregular, S1, S2, no murmur.) Abdomen: Normal bowel sounds, Soft Extremities: No edema Vitals VITALS Vital Signs Date Time Temp Pulse Resp B/P (MAP) Pulse Ox O2 Delivery O2 Flow Rate FiO2 03/31/18 14:56 97.9 72 18 126/68 (87) 95 Room Air 97.9 Labs Labs Laboratory Tests Test 03/31/18 11:13 03/31/18 11:59 03/31/18 15:13 White Blood Count 8.9 x10^3/uL (4.0-11.0) Red Blood Count 5.20 x10^6/uL (3.50-5.40) Hemoglobin 16.2 g/dL (12.0-15.5) Hematocrit 46.5 % (36.0-47.0) Mean Corpuscular Volume 89 fL (79-100) Mean Corpuscular Hemoglobin 31 pg (25-35) Mean Corpuscular Hemoglobin Concent 35 g/dL (31-37) Red Cell Distribution Width 14.0 % (11.5-14.5) Platelet Count 152 x10^3/uL (140-400) Neutrophils (%) (Auto) 74 % (31-73) Lymphocytes (%) (Auto) 16 % (24-48) Monocytes (%) (Auto) 8 % (0-9) Eosinophils (%) (Auto) 1 % (0-3) Basophils (%) (Auto) 1 % (0-3) Neutrophils # (Auto) 6.6 x10^3uL (1.8-7.7) Lymphocytes # (Auto) 1.5 x10^3/uL (1.0-4.8) Monocytes # (Auto) 0.7 x10^3/uL (0.0-1.1) Eosinophils # (Auto) 0.1 x10^3/uL (0.0-0.7) Basophils # (Auto) 0.1 x10^3/uL (0.0-0.2) Prothrombin Time 12.3 SEC (11.7-14.0) Prothromb Time International Ratio 1.0 (0.8-1.1) Activated Partial Thromboplast Time 24 SEC (24-38) Sodium Level 143 mmol/L (136-145) Potassium Level 3.6 mmol/L (3.5-5.1) Chloride Level 101 mmol/L (98-107) Carbon Dioxide Level 32 mmol/L (21-32) Anion Gap 10 (6-14) Blood Urea Nitrogen 29 mg/dL (7-20) Creatinine 1.0 mg/dL (0.6-1.0) Estimated GFR (Cockcroft-Gault) 52.6 BUN/Creatinine Ratio 29 (6-20) Glucose Level 100 mg/dL (70-99) Calcium Level 9.7 mg/dL (8.5-10.1) Magnesium Level 2.3 mg/dL (1.8-2.4) Total Bilirubin 0.6 mg/dL (0.2-1.0) Aspartate Amino Transf (AST/SGOT) 18 U/L (15-37) Alanine Aminotransferase (ALT/SGPT) 23 U/L (14-59) Alkaline Phosphatase 112 U/L (46-116) Creatine Kinase 60 U/L (26-192) Creatine Kinase MB (Mass) 1.1 ng/mL (0.0-3.6) Creatine Kinase MB Relative Index % (0-4) Troponin I Quantitative < 0.017 ng/mL (0.000-0.055) < 0.017 ng/mL (0.000-0.055) AD-Ofy-C-Type Natriuretic Peptide 724 pg/mL (0-449) Total Protein 7.1 g/dL (6.4-8.2) Albumin 3.8 g/dL (3.4-5.0) Albumin/Globulin Ratio 1.2 (1.0-1.7) Thyroid Stimulating Hormone (TSH) 2.649 uIU/mL (0.358-3.74) Free Thyroxine 1.01 ng/dL (0.76-1.46) Urine Collection Type U cath Urine Color Yellow Urine Clarity Clear Urine pH 6.0 Urine Specific [place] 1.010 Urine Protein Negative mg/dL (NEG-TRACE) Urine Glucose (UA) Negative mg/dL (NEG) Urine Ketones (Stick) Negative mg/dL (NEG) Urine Blood Negative (NEG) Urine Nitrite Negative (NEG) Urine Bilirubin Negative (NEG) Urine Urobilinogen Dipstick 0.2 mg/dL (0.2 mg/dL) Urine Leukocyte Esterase Negative (NEG) Urine RBC 0 /HPF (0-2) Urine WBC Occ /HPF (0-4) Urine Amorphous Sediment Present /HPF Urine Bacteria 0 /HPF (0-FEW) Urine Hyaline Casts Few /HPF Laboratory Tests Test 03/31/18 11:13 03/31/18 11:59 03/31/18 15:13 White Blood Count 8.9 x10^3/uL (4.0-11.0) Red Blood Count 5.20 x10^6/uL (3.50-5.40) Hemoglobin 16.2 g/dL (12.0-15.5) Hematocrit 46.5 % (36.0-47.0) Mean Corpuscular Volume 89 fL (79-100) Mean Corpuscular Hemoglobin 31 pg (25-35) Mean Corpuscular Hemoglobin Concent 35 g/dL (31-37) Red Cell Distribution Width 14.0 % (11.5-14.5) Platelet Count 152 x10^3/uL (140-400) Neutrophils (%) (Auto) 74 % (31-73) Lymphocytes (%) (Auto) 16 % (24-48) Monocytes (%) (Auto) 8 % (0-9) Eosinophils (%) (Auto) 1 % (0-3) Basophils (%) (Auto) 1 % (0-3) Neutrophils # (Auto) 6.6 x10^3uL (1.8-7.7) Lymphocytes # (Auto) 1.5 x10^3/uL (1.0-4.8) Monocytes # (Auto) 0.7 x10^3/uL (0.0-1.1) Eosinophils # (Auto) 0.1 x10^3/uL (0.0-0.7) Basophils # (Auto) 0.1 x10^3/uL (0.0-0.2) Prothrombin Time 12.3 SEC (11.7-14.0) Prothromb Time International Ratio 1.0 (0.8-1.1) Activated Partial Thromboplast Time 24 SEC (24-38) Sodium Level 143 mmol/L (136-145) Potassium Level 3.6 mmol/L (3.5-5.1) Chloride Level 101 mmol/L (98-107) Carbon Dioxide Level 32 mmol/L (21-32) Anion Gap 10 (6-14) Blood Urea Nitrogen 29 mg/dL (7-20) Creatinine 1.0 mg/dL (0.6-1.0) Estimated GFR (Cockcroft-Gault) 52.6 BUN/Creatinine Ratio 29 (6-20) Glucose Level 100 mg/dL (70-99) Calcium Level 9.7 mg/dL (8.5-10.1) Magnesium Level 2.3 mg/dL (1.8-2.4) Total Bilirubin 0.6 mg/dL (0.2-1.0) Aspartate Amino Transf (AST/SGOT) 18 U/L (15-37) Alanine Aminotransferase (ALT/SGPT) 23 U/L (14-59) Alkaline Phosphatase 112 U/L (46-116) Creatine Kinase 60 U/L (26-192) Creatine Kinase MB (Mass) 1.1 ng/mL (0.0-3.6) Creatine Kinase MB Relative Index % (0-4) Troponin I Quantitative < 0.017 ng/mL (0.000-0.055) < 0.017 ng/mL (0.000-0.055) YS-Eqa-C-Type Natriuretic Peptide 724 pg/mL (0-449) Total Protein 7.1 g/dL (6.4-8.2) Albumin 3.8 g/dL (3.4-5.0) Albumin/Globulin Ratio 1.2 (1.0-1.7) Thyroid Stimulating Hormone (TSH) 2.649 uIU/mL (0.358-3.74) Free Thyroxine 1.01 ng/dL (0.76-1.46) Urine Collection Type U cath Urine Color Yellow Urine Clarity Clear Urine pH 6.0 Urine Specific [place] 1.010 Urine Protein Negative mg/dL (NEG-TRACE) Urine Glucose (UA) Negative mg/dL (NEG) Urine Ketones (Stick) Negative mg/dL (NEG) Urine Blood Negative (NEG) Urine Nitrite Negative (NEG) Urine Bilirubin Negative (NEG) Urine Urobilinogen Dipstick 0.2 mg/dL (0.2 mg/dL) Urine Leukocyte Esterase Negative (NEG) Urine RBC 0 /HPF (0-2) Urine WBC Occ /HPF (0-4) Urine Amorphous Sediment Present /HPF Urine Bacteria 0 /HPF (0-FEW) Urine Hyaline Casts Few /HPF Assessment/Plan Assessment/Plan This patient comes in with atrial fibrillation with a rapid ventricular response. She was started on IV Cardizem in the emergency room and with this the ventricular response has slowed down into the 80s. I would like to continue with the Cardizem drip at a higher dose through the night and see if she converts back to a normal rhythm. In addition to that she needs to be anticoagulated. Will start Lovenox twice a day. Get an echocardiogram to evaluate for thrombus as well as left ventricular function and atrial size. Thank you very much for asking me to participate in the care of this patient DANNA LUNA MD Mar 31, 2018 17:30
[2018-03-31] MEDS ORDERED: NON FORMULARY ITEM (Melatonin 10 MG) PO SCH (21:00)
[2018-03-31] MEDS ORDERED: dilTIAZem INJ 125 MG in IV DEXTROSE 5% 100ML 100 ML IV PRN (21:15)
[2018-03-31] MEDS: FLUTICASONE 50MCG/NASAL SPRAY 16GM BOTTLE. NS SCH (21:23)
[2018-03-31] MEDS: LATANOPROST 0.005% OPHTH SOLUTION 2.5ML BOTTLE. OU SCH (21:23)
[2018-03-31] MEDS: SIMVASTATIN 20 MG TABLET PO SCH (21:23)
[2018-03-31] MEDS: BRIMONIDINE 0.2% OPHTH SOLUTION 5ML BOTTLE. OU SCH (21:23)
[2018-03-31] MEDS: ENOXAPARIN 40 MG/0.4 ML SYRINGE. SQ SCH (21:26)
[2018-03-31] MEDS ORDERED: DORZ10DR7 EACHEYE (21:47)
[2018-04-01] VITALS (10 sets, daily range): BP systolic 56–140; BP diastolic 51–64
[2018-04-01] MEDS: DORZOLAMIDE 2% OPHTH SOLUTION 10ML BOTTLE. OU SCH ×2 (08:40→20:42)
[2018-04-01] MEDS: amLODIPine BESYLATE 10 MG TABLET PO SCH (08:40)
[2018-04-01] MEDS: FLUTICASONE 50MCG/NASAL SPRAY 16GM BOTTLE. NS SCH ×2 (08:40→20:40)
[2018-04-01] MEDS: BRIMONIDINE 0.2% OPHTH SOLUTION 5ML BOTTLE. OU SCH ×2 (08:40→20:41)
[2018-04-01] MEDS: MULTIVITAMIN with MINERAL TABLET. PO SCH (08:41)
[2018-04-01] MEDS: VITAMIN B COMPLEX TABLET. PO SCH (08:41)
[2018-04-01] MEDS: ENOXAPARIN 40 MG/0.4 ML SYRINGE. SQ SCH ×2 (08:43→20:41)
[2018-04-01] MEDS: TIMOLOL 0.5% OPHTH SOLUTION 5ML BOTTLE. OU SCH ×2 (08:45→21:00)
[2018-04-01] MEDS ORDERED: NON FORMULARY ITEM (Ubidecarenone (Coq-10) 100 MG) PO SCH (09:00)
[2018-04-01] MEDS ORDERED: BUME2TAB PO (09:02)
[2018-04-01] MEDS: MAGNESIUM OXIDE 400 MG TABLET PO SCH (09:43)
[2018-04-01] MEDS: BUMETANIDE 1 MG TABLET. PO SCH (09:43)
--- NOTE | 2018-04-01 09:58 | PDOC ---
PROGRESS NOTES Chief Complaint Chief Complaint A.fib w/ RVR HTN HLD History of Present Illness History of Present Illness Pt seen and examined Dw RN Pt sitting in bedside chair Denies CP, SOB Vitals Vitals Vital Signs Date Time Temp Pulse Resp B/P (MAP) Pulse Ox O2 Delivery O2 Flow Rate FiO2 04/01/18 08:40 77 123/62 04/01/18 08:13 Room Air 04/01/18 06:45 97.9 16 96 97.9 Physical Exam General: Alert, Oriented X3, Cooperative Heart: Normal S1, Normal S2, Other (irregular w/ occasional PVCs) Lungs: Clear Abdomen: Normal bowel sounds, Soft Extremities: No clubbing, No edema Skin: No breakdown, No significant lesion Labs LABS Laboratory Tests Test 03/31/18 11:13 03/31/18 11:59 03/31/18 15:13 White Blood Count 8.9 x10^3/uL (4.0-11.0) Red Blood Count 5.20 x10^6/uL (3.50-5.40) Hemoglobin 16.2 g/dL (12.0-15.5) Hematocrit 46.5 % (36.0-47.0) Mean Corpuscular Volume 89 fL (79-100) Mean Corpuscular Hemoglobin 31 pg (25-35) Mean Corpuscular Hemoglobin Concent 35 g/dL (31-37) Red Cell Distribution Width 14.0 % (11.5-14.5) Platelet Count 152 x10^3/uL (140-400) Neutrophils (%) (Auto) 74 % (31-73) Lymphocytes (%) (Auto) 16 % (24-48) Monocytes (%) (Auto) 8 % (0-9) Eosinophils (%) (Auto) 1 % (0-3) Basophils (%) (Auto) 1 % (0-3) Neutrophils # (Auto) 6.6 x10^3uL (1.8-7.7) Lymphocytes # (Auto) 1.5 x10^3/uL (1.0-4.8) Monocytes # (Auto) 0.7 x10^3/uL (0.0-1.1) Eosinophils # (Auto) 0.1 x10^3/uL (0.0-0.7) Basophils # (Auto) 0.1 x10^3/uL (0.0-0.2) Prothrombin Time 12.3 SEC (11.7-14.0) Prothromb Time International Ratio 1.0 (0.8-1.1) Activated Partial Thromboplast Time 24 SEC (24-38) Sodium Level 143 mmol/L (136-145) Potassium Level 3.6 mmol/L (3.5-5.1) Chloride Level 101 mmol/L (98-107) Carbon Dioxide Level 32 mmol/L (21-32) Anion Gap 10 (6-14) Blood Urea Nitrogen 29 mg/dL (7-20) Creatinine 1.0 mg/dL (0.6-1.0) Estimated GFR (Cockcroft-Gault) 52.6 BUN/Creatinine Ratio 29 (6-20) Glucose Level 100 mg/dL (70-99) Calcium Level 9.7 mg/dL (8.5-10.1) Magnesium Level 2.3 mg/dL (1.8-2.4) Total Bilirubin 0.6 mg/dL (0.2-1.0) Aspartate Amino Transf (AST/SGOT) 18 U/L (15-37) Alanine Aminotransferase (ALT/SGPT) 23 U/L (14-59) Alkaline Phosphatase 112 U/L (46-116) Creatine Kinase 60 U/L (26-192) Creatine Kinase MB (Mass) 1.1 ng/mL (0.0-3.6) Creatine Kinase MB Relative Index % (0-4) Troponin I Quantitative < 0.017 ng/mL (0.000-0.055) < 0.017 ng/mL (0.000-0.055) MR-Eay-L-Type Natriuretic Peptide 724 pg/mL (0-449) Total Protein 7.1 g/dL (6.4-8.2) Albumin 3.8 g/dL (3.4-5.0) Albumin/Globulin Ratio 1.2 (1.0-1.7) Thyroid Stimulating Hormone (TSH) 2.649 uIU/mL (0.358-3.74) Free Thyroxine 1.01 ng/dL (0.76-1.46) Urine Collection Type U cath Urine Color Yellow Urine Clarity Clear Urine pH 6.0 Urine Specific [place] 1.010 Urine Protein Negative mg/dL (NEG-TRACE) Urine Glucose (UA) Negative mg/dL (NEG) Urine Ketones (Stick) Negative mg/dL (NEG) Urine Blood Negative (NEG) Urine Nitrite Negative (NEG) Urine Bilirubin Negative (NEG) Urine Urobilinogen Dipstick 0.2 mg/dL (0.2 mg/dL) Urine Leukocyte Esterase Negative (NEG) Urine RBC 0 /HPF (0-2) Urine WBC Occ /HPF (0-4) Urine Amorphous Sediment Present /HPF Urine Bacteria 0 /HPF (0-FEW) Urine Hyaline Casts Few /HPF Review of Systems Review of Systems Denies pain Denies SOB Assessment and Plan Assessmemt and Plan Problems Medical Problems: (1) Atrial fibrillation with tachycardic ventricular rate Status: Acute Acute back pain w/ defect L2 and L3 ARF w/ hyperkalemia CHF Cervical stenosis Gait instability Anemia A fib on anticoagulation HTN Obesity Plan: Cardiac monitoring Diltiazem drip Labs Home meds PT/OT Appreciate subspecialist input Comment Review of Relevant I have reviewed the following items yuriy (where applicable) has been applied. Labs Laboratory Tests Test 03/31/18 11:13 03/31/18 11:59 03/31/18 15:13 White Blood Count 8.9 x10^3/uL (4.0-11.0) Red Blood Count 5.20 x10^6/uL (3.50-5.40) Hemoglobin 16.2 g/dL (12.0-15.5) Hematocrit 46.5 % (36.0-47.0) Mean Corpuscular Volume 89 fL (79-100) Mean Corpuscular Hemoglobin 31 pg (25-35) Mean Corpuscular Hemoglobin Concent 35 g/dL (31-37) Red Cell Distribution Width 14.0 % (11.5-14.5) Platelet Count 152 x10^3/uL (140-400) Neutrophils (%) (Auto) 74 % (31-73) Lymphocytes (%) (Auto) 16 % (24-48) Monocytes (%) (Auto) 8 % (0-9) Eosinophils (%) (Auto) 1 % (0-3) Basophils (%) (Auto) 1 % (0-3) Neutrophils # (Auto) 6.6 x10^3uL (1.8-7.7) Lymphocytes # (Auto) 1.5 x10^3/uL (1.0-4.8) Monocytes # (Auto) 0.7 x10^3/uL (0.0-1.1) Eosinophils # (Auto) 0.1 x10^3/uL (0.0-0.7) Basophils # (Auto) 0.1 x10^3/uL (0.0-0.2) Prothrombin Time 12.3 SEC (11.7-14.0) Prothromb Time International Ratio 1.0 (0.8-1.1) Activated Partial Thromboplast Time 24 SEC (24-38) Sodium Level 143 mmol/L (136-145) Potassium Level 3.6 mmol/L (3.5-5.1) Chloride Level 101 mmol/L (98-107) Carbon Dioxide Level 32 mmol/L (21-32) Anion Gap 10 (6-14) Blood Urea Nitrogen 29 mg/dL (7-20) Creatinine 1.0 mg/dL (0.6-1.0) Estimated GFR (Cockcroft-Gault) 52.6 BUN/Creatinine Ratio 29 (6-20) Glucose Level 100 mg/dL (70-99) Calcium Level 9.7 mg/dL (8.5-10.1) Magnesium Level 2.3 mg/dL (1.8-2.4) Total Bilirubin 0.6 mg/dL (0.2-1.0) Aspartate Amino Transf (AST/SGOT) 18 U/L (15-37) Alanine Aminotransferase (ALT/SGPT) 23 U/L (14-59) Alkaline Phosphatase 112 U/L (46-116) Creatine Kinase 60 U/L (26-192) Creatine Kinase MB (Mass) 1.1 ng/mL (0.0-3.6) Creatine Kinase MB Relative Index % (0-4) Troponin I Quantitative < 0.017 ng/mL (0.000-0.055) < 0.017 ng/mL (0.000-0.055) HL-Aio-H-Type Natriuretic Peptide 724 pg/mL (0-449) Total Protein 7.1 g/dL (6.4-8.2) Albumin 3.8 g/dL (3.4-5.0) Albumin/Globulin Ratio 1.2 (1.0-1.7) Thyroid Stimulating Hormone (TSH) 2.649 uIU/mL (0.358-3.74) Free Thyroxine 1.01 ng/dL (0.76-1.46) Urine Collection Type U cath Urine Color Yellow Urine Clarity Clear Urine pH 6.0 Urine Specific [place] 1.010 Urine Protein Negative mg/dL (NEG-TRACE) Urine Glucose (UA) Negative mg/dL (NEG) Urine Ketones (Stick) Negative mg/dL (NEG) Urine Blood Negative (NEG) Urine Nitrite Negative (NEG) Urine Bilirubin Negative (NEG) Urine Urobilinogen Dipstick 0.2 mg/dL (0.2 mg/dL) Urine Leukocyte Esterase Negative (NEG) Urine RBC 0 /HPF (0-2) Urine WBC Occ /HPF (0-4) Urine Amorphous Sediment Present /HPF Urine Bacteria 0 /HPF (0-FEW) Urine Hyaline Casts Few /HPF Laboratory Tests Test 03/31/18 11:13 03/31/18 11:59 03/31/18 15:13 White Blood Count 8.9 x10^3/uL (4.0-11.0) Red Blood Count 5.20 x10^6/uL (3.50-5.40) Hemoglobin 16.2 g/dL (12.0-15.5) Hematocrit 46.5 % (36.0-47.0) Mean Corpuscular Volume 89 fL (79-100) Mean Corpuscular Hemoglobin 31 pg (25-35) Mean Corpuscular Hemoglobin Concent 35 g/dL (31-37) Red Cell Distribution Width 14.0 % (11.5-14.5) Platelet Count 152 x10^3/uL (140-400) Neutrophils (%) (Auto) 74 % (31-73) Lymphocytes (%) (Auto) 16 % (24-48) Monocytes (%) (Auto) 8 % (0-9) Eosinophils (%) (Auto) 1 % (0-3) Basophils (%) (Auto) 1 % (0-3) Neutrophils # (Auto) 6.6 x10^3uL (1.8-7.7) Lymphocytes # (Auto) 1.5 x10^3/uL (1.0-4.8) Monocytes # (Auto) 0.7 x10^3/uL (0.0-1.1) Eosinophils # (Auto) 0.1 x10^3/uL (0.0-0.7) Basophils # (Auto) 0.1 x10^3/uL (0.0-0.2) Prothrombin Time 12.3 SEC (11.7-14.0) Prothromb Time International Ratio 1.0 (0.8-1.1) Activated Partial Thromboplast Time 24 SEC (24-38) Sodium Level 143 mmol/L (136-145) Potassium Level 3.6 mmol/L (3.5-5.1) Chloride Level 101 mmol/L (98-107) Carbon Dioxide Level 32 mmol/L (21-32) Anion Gap 10 (6-14) Blood Urea Nitrogen 29 mg/dL (7-20) Creatinine 1.0 mg/dL (0.6-1.0) Estimated GFR (Cockcroft-Gault) 52.6 BUN/Creatinine Ratio 29 (6-20) Glucose Level 100 mg/dL (70-99) Calcium Level 9.7 mg/dL (8.5-10.1) Magnesium Level 2.3 mg/dL (1.8-2.4) Total Bilirubin 0.6 mg/dL (0.2-1.0) Aspartate Amino Transf (AST/SGOT) 18 U/L (15-37) Alanine Aminotransferase (ALT/SGPT) 23 U/L (14-59) Alkaline Phosphatase 112 U/L (46-116) Creatine Kinase 60 U/L (26-192) Creatine Kinase MB (Mass) 1.1 ng/mL (0.0-3.6) Creatine Kinase MB Relative Index % (0-4) Troponin I Quantitative < 0.017 ng/mL (0.000-0.055) < 0.017 ng/mL (0.000-0.055) IH-Vtc-A-Type Natriuretic Peptide 724 pg/mL (0-449) Total Protein 7.1 g/dL (6.4-8.2) Albumin 3.8 g/dL (3.4-5.0) Albumin/Globulin Ratio 1.2 (1.0-1.7) Thyroid Stimulating Hormone (TSH) 2.649 uIU/mL (0.358-3.74) Free Thyroxine 1.01 ng/dL (0.76-1.46) Urine Collection Type U cath Urine Color Yellow Urine Clarity Clear Urine pH 6.0 Urine Specific [place] 1.010 Urine Protein Negative mg/dL (NEG-TRACE) Urine Glucose (UA) Negative mg/dL (NEG) Urine Ketones (Stick) Negative mg/dL (NEG) Urine Blood Negative (NEG) Urine Nitrite Negative (NEG) Urine Bilirubin Negative (NEG) Urine Urobilinogen Dipstick 0.2 mg/dL (0.2 mg/dL) Urine Leukocyte Esterase Negative (NEG) Urine RBC 0 /HPF (0-2) Urine WBC Occ /HPF (0-4) Urine Amorphous Sediment Present /HPF Urine Bacteria 0 /HPF (0-FEW) Urine Hyaline Casts Few /HPF Medications Current Medications Aspirin (Titus Aspirin) 325 mg 1X ONCE PO Last administered on 03/31/18at 11:02 ; Start 03/31/18 at 10:30; Stop 03/31/18 at 10:37; Status DC Diltiazem HCl (Cardizem) 20 mg 1X ONCE IVP Last administered on 03/31/18at 11: 18; Start 03/31/18 at 11:00; Stop 03/31/18 at 11:01; Status DC Diltiazem HCl 125 mg/Dextrose 125 ml @ 0 mls/hr 1X STAT IV Last administered on 03/31/18at 11:36; Start 03/31/18 at 11:13; Stop 03/31/18 at 11:21; Status DC Ondansetron HCl (Zofran) 4 mg PRN Q8HRS PRN IV NAUSEA/VOMITING; Start 03/31/18 at 12:15; Stop 04/01/18 at 12:14 Acetaminophen (Tylenol) 650 mg PRN Q6HRS PRN PO MILD PAIN; Start 03/31/18 at 16 :15 Amlodipine Besylate (Norvasc) 10 mg DAILY PO Last administered on 04/01/18at 08: 40; Start 04/01/18 at 09:00 Vitamin B Complex (Elton B) 1 tab DAILY PO Last administered on 04/01/18at 08:41 ; Start 04/01/18 at 09:00 Brimonidine Tartrate (Alphagan) 1 drop BID OU Last administered on 04/01/18at 08 :40; Start 03/31/18 at 21:00 Fluticasone Propionate (Flonase) 1 spray BID NS Last administered on 04/01/18 08:40; Start 03/31/18 at 21:00 Latanoprost (Xalatan) 1 drop QHS OU Last administered on 03/31/18 21:23; Start 03/31/18 at 21:00 Magnesium Oxide (Magnesium Oxide) 400 mg DAILY PO Last administered on 09:43; Start 04/01/18 at 09:00 Non-Formulary Medication (Melatonin ) 10 mg HS PO ; Start 03/31/18 at 21:00; Status UNV Multivitamins (Thera M Plus) 1 tab DAILY PO Last administered on 04/01/18 08: 41; Start 04/01/18 at 09:00 Simvastatin (Zocor) 20 mg HS PO Last administered on 03/31/18 21:23; Start 06/07 at 21:00 Non-Formulary Medication (Ubidecarenone (Coq-10)) 100 mg DAILY PO ; Start at 09:00; Status UNV Zolpidem Tartrate (Ambien) 5 mg PRN QHS PRN PO INSOMNIA Last administered on 21:34; Start 03/31/18 at 16:30 Enoxaparin Sodium (Lovenox 40mg Syringe) 40 mg BID SQ Last administered on 04/01 08:43; Start 03/31/18 at 21:00 Diltiazem HCl 125 mg/Dextrose 125 ml @ 5 mls/hr CONT PRN IV SEE I/O RECORD Last administered on 03/31/18 21:36; Start 03/31/18 at 21:15 Dorzolamide HCl (Trusopt) 1 drop BID OU Last administered on 04/01/18 08:40; Start 04/01/18 at 09:00 Timolol Maleate (Timoptic 0.5% [facility]) 1 drop BID OU ; Start 04/01/18 at 09:00 Bumetanide (Bumex) 2 mg DAILY PO Last administered on 04/01/18 09:43; Start at 09:30 Active Scripts Active Reported Bumetanide 2 Mg Tablet 1 Tab PO DAILY Dorzolamide-Timolol Eye Drops (Dorzolamide Hcl/Timolol Maleat) 10 Ml Drops 1 Drop EACHEYE BID Ambien (Zolpidem Tartrate) 5 Mg Tablet 1 Tab PO QHS PRN Flonase Allergy Relief (Fluticasone Propionate) 9.9 Ml [place].susp 2 Sprays NS BID Tylenol (Acetaminophen) 325 Mg Tablet 2 Tab PO Q6HRS PRN Alphagan P (Brimonidine Tartrate) 5 Ml Drops 5 Ml OP BID Latanoprost 2.5 Ml Drops 1 Drop EACHEYE QHS Magnesium (Magnesium Oxide) 400 Mg Capsule 250 Mg PO DAILY Coq-10 (Ubidecarenone) 100 Mg Capsule 100 Mg PO DAILY Melatonin 10 Mg Capsule 10 Mg PO HS Ribozel 159 mg Capsule (B1/B2/B3/B5/B6/Fa/B12/C) 1 Each Capsule 1 Each PO DAILY Multivitamins (Multivitamin) 1 Each Tablet 1 Tab PO DAILY Amlodipine Besylate 5 Mg Tablet 10 Mg PO DAILY Zocor (Simvastatin) 20 Mg Tablet 1 Tab PO DAILY Vitals/I & O Vital Sign - Last 24 Hours 03/31/18 03/31/18 03/31/18 03/31/18 10:13 10:30 11:00 11:18 Temp 98.4 98.4 Pulse 135 116 116 125 Resp 20 18 20 B/P (MAP) 142/73 (96) 115/82 (93) 115/70 (85) 115/70 Pulse Ox 92 95 96 O2 Delivery Room Air Room Air Room Air 03/31/18 03/31/18 03/31/18 03/31/18 11:30 12:00 12:00 12:30 Pulse 98 92 108 Resp 20 20 20 B/P (MAP) 148/80 (102) 147/73 (97) Pulse Ox 97 97 97 O2 Delivery Room Air Room Air Room Air Room Air 03/31/18 03/31/18 03/31/18 03/31/18 13:32 14:56 18:30 19:00 Temp 98.3 97.9 98.4 98.3 97.9 98.4 Pulse 77 72 76 78 Resp 18 18 18 B/P (MAP) 138/64 (88) 126/68 (87) 126/77 (93) 126/54 (78) Pulse Ox 96 95 94 O2 Delivery Room Air Room Air Room Air 03/31/18 03/31/18 03/31/18 03/31/18 19:05 19:30 20:30 22:30 Pulse 72 72 78 B/P (MAP) 101/51 (68) 116/57 (76) 100/53 (69) O2 Delivery Room Air 03/31/18 03/31/18 04/01/18 04/01/18 23:02 23:30 00:30 01:30 Temp 98.7 98.7 Pulse 88 66 66 66 Resp 18 B/P (MAP) 100/53 (69) 93/46 (62) 56/ 112/58 (76) Pulse Ox 94 O2 Delivery Room Air 04/01/18 04/01/18 04/01/18 04/01/18 03:06 03:26 04:04 06:45 Temp 97.8 97.9 97.8 97.9 Pulse 73 76 77 Resp 16 16 B/P (MAP) 113/60 (77) 87/54 (65) 102/62 (75) 123/62 (82) Pulse Ox 95 96 O2 Delivery Room Air Room Air 04/01/18 04/01/18 08:13 08:40 Pulse 77 B/P (MAP) 123/62 O2 Delivery Room Air Intake and Output 03/31/18 03/31/18 04/01/18 15:00 23:00 07:00 Intake Total 350 ml 200 ml Output Total 300 ml 200 ml Balance 50 ml 0 ml TREVOR DWYER III DO Apr 01, 2018 09:58
--- NOTE | 2018-04-01 12:13 | PDOC ---
PROGRESS NOTES Subjective Subjective Patient has no new complaints. She continues in atrial fibrillation with a controlled ventricular response. Objective Objective Vital Signs Date Time Temp Pulse Resp B/P (MAP) Pulse Ox O2 Delivery O2 Flow Rate FiO2 04/01/18 11:00 97.4 69 18 128/61 (83) Room Air 97.4 04/01/18 06:45 96 Intake and Output 04/01/18 07:00 Intake Total 550 ml Output Total 500 ml Balance 50 ml Intake Oral 550 ml Output Urine Total 500 ml Physical Exam Physical Exam No significant changes in cardiac exam except for the pulse rate is normal. Assessment Assessment Patient continues in atrial fibrillation. The ventricular response is controlled. We will switch her to oral Cardizem and initiate warfarin. Comment Review of Relevant I have reviewed the following items yuriy (where applicable) has been applied. Labs Laboratory Tests Test 03/31/18 11:13 03/31/18 11:59 03/31/18 15:13 White Blood Count 8.9 x10^3/uL (4.0-11.0) Red Blood Count 5.20 x10^6/uL (3.50-5.40) Hemoglobin 16.2 g/dL (12.0-15.5) Hematocrit 46.5 % (36.0-47.0) Mean Corpuscular Volume 89 fL (79-100) Mean Corpuscular Hemoglobin 31 pg (25-35) Mean Corpuscular Hemoglobin Concent 35 g/dL (31-37) Red Cell Distribution Width 14.0 % (11.5-14.5) Platelet Count 152 x10^3/uL (140-400) Neutrophils (%) (Auto) 74 % (31-73) Lymphocytes (%) (Auto) 16 % (24-48) Monocytes (%) (Auto) 8 % (0-9) Eosinophils (%) (Auto) 1 % (0-3) Basophils (%) (Auto) 1 % (0-3) Neutrophils # (Auto) 6.6 x10^3uL (1.8-7.7) Lymphocytes # (Auto) 1.5 x10^3/uL (1.0-4.8) Monocytes # (Auto) 0.7 x10^3/uL (0.0-1.1) Eosinophils # (Auto) 0.1 x10^3/uL (0.0-0.7) Basophils # (Auto) 0.1 x10^3/uL (0.0-0.2) Prothrombin Time 12.3 SEC (11.7-14.0) Prothromb Time International Ratio 1.0 (0.8-1.1) Activated Partial Thromboplast Time 24 SEC (24-38) Sodium Level 143 mmol/L (136-145) Potassium Level 3.6 mmol/L (3.5-5.1) Chloride Level 101 mmol/L (98-107) Carbon Dioxide Level 32 mmol/L (21-32) Anion Gap 10 (6-14) Blood Urea Nitrogen 29 mg/dL (7-20) Creatinine 1.0 mg/dL (0.6-1.0) Estimated GFR (Cockcroft-Gault) 52.6 BUN/Creatinine Ratio 29 (6-20) Glucose Level 100 mg/dL (70-99) Calcium Level 9.7 mg/dL (8.5-10.1) Magnesium Level 2.3 mg/dL (1.8-2.4) Total Bilirubin 0.6 mg/dL (0.2-1.0) Aspartate Amino Transf (AST/SGOT) 18 U/L (15-37) Alanine Aminotransferase (ALT/SGPT) 23 U/L (14-59) Alkaline Phosphatase 112 U/L (46-116) Creatine Kinase 60 U/L (26-192) Creatine Kinase MB (Mass) 1.1 ng/mL (0.0-3.6) Creatine Kinase MB Relative Index % (0-4) Troponin I Quantitative < 0.017 ng/mL (0.000-0.055) < 0.017 ng/mL (0.000-0.055) GC-Nfj-J-Type Natriuretic Peptide 724 pg/mL (0-449) Total Protein 7.1 g/dL (6.4-8.2) Albumin 3.8 g/dL (3.4-5.0) Albumin/Globulin Ratio 1.2 (1.0-1.7) Thyroid Stimulating Hormone (TSH) 2.649 uIU/mL (0.358-3.74) Free Thyroxine 1.01 ng/dL (0.76-1.46) Urine Collection Type U cath Urine Color Yellow Urine Clarity Clear Urine pH 6.0 Urine Specific [place] 1.010 Urine Protein Negative mg/dL (NEG-TRACE) Urine Glucose (UA) Negative mg/dL (NEG) Urine Ketones (Stick) Negative mg/dL (NEG) Urine Blood Negative (NEG) Urine Nitrite Negative (NEG) Urine Bilirubin Negative (NEG) Urine Urobilinogen Dipstick 0.2 mg/dL (0.2 mg/dL) Urine Leukocyte Esterase Negative (NEG) Urine RBC 0 /HPF (0-2) Urine WBC Occ /HPF (0-4) Urine Amorphous Sediment Present /HPF Urine Bacteria 0 /HPF (0-FEW) Urine Hyaline Casts Few /HPF Laboratory Tests Test 03/31/18 15:13 Troponin I Quantitative < 0.017 ng/mL (0.000-0.055) Medications Current Medications Aspirin (Titus Aspirin) 325 mg 1X ONCE PO Last administered on 03/31/18at 11:02 ; Start 03/31/18 at 10:30; Stop 03/31/18 at 10:37; Status DC Diltiazem HCl (Cardizem) 20 mg 1X ONCE IVP Last administered on 03/31/18at 11: 18; Start 03/31/18 at 11:00; Stop 03/31/18 at 11:01; Status DC Diltiazem HCl 125 mg/Dextrose 125 ml @ 0 mls/hr 1X STAT IV Last administered on 03/31/18at 11:36; Start 03/31/18 at 11:13; Stop 03/31/18 at 11:21; Status DC Ondansetron HCl (Zofran) 4 mg PRN Q8HRS PRN IV NAUSEA/VOMITING; Start 03/31/18 at 12:15; Stop 04/01/18 at 12:14 Acetaminophen (Tylenol) 650 mg PRN Q6HRS PRN PO MILD PAIN; Start 03/31/18 at 16 :15 Amlodipine Besylate (Norvasc) 10 mg DAILY PO Last administered on 04/01/18at 08: 40; Start 04/01/18 at 09:00 Vitamin B Complex (Elton B) 1 tab DAILY PO Last administered on 04/01/18at 08:41 ; Start 04/01/18 at 09:00 Brimonidine Tartrate (Alphagan) 1 drop BID OU Last administered on 04/01/18at 08 :40; Start 03/31/18 at 21:00 Fluticasone Propionate (Flonase) 1 spray BID NS Last administered on 04/01/18 08:40; Start 03/31/18 at 21:00 Latanoprost (Xalatan) 1 drop QHS OU Last administered on 03/31/18 21:23; Start 03/31/18 at 21:00 Magnesium Oxide (Magnesium Oxide) 400 mg DAILY PO Last administered on 09:43; Start 04/01/18 at 09:00 Non-Formulary Medication (Melatonin ) 10 mg HS PO ; Start 03/31/18 at 21:00; Status UNV Multivitamins (Thera M Plus) 1 tab DAILY PO Last administered on 04/01/18 08: 41; Start 04/01/18 at 09:00 Simvastatin (Zocor) 20 mg HS PO Last administered on 03/31/18 21:23; Start 06/07 at 21:00 Non-Formulary Medication (Ubidecarenone (Coq-10)) 100 mg DAILY PO ; Start at 09:00; Status UNV Zolpidem Tartrate (Ambien) 5 mg PRN QHS PRN PO INSOMNIA Last administered on 21:34; Start 03/31/18 at 16:30 Enoxaparin Sodium (Lovenox 40mg Syringe) 40 mg BID SQ Last administered on 04/01 08:43; Start 03/31/18 at 21:00 Diltiazem HCl 125 mg/Dextrose 125 ml @ 5 mls/hr CONT PRN IV SEE I/O RECORD Last administered on 03/31/18 21:36; Start 03/31/18 at 21:15 Dorzolamide HCl (Trusopt) 1 drop BID OU Last administered on 04/01/18 08:40; Start 04/01/18 at 09:00 Timolol Maleate (Timoptic 0.5% [facility]) 1 drop BID OU ; Start 04/01/18 at 09:00 Bumetanide (Bumex) 2 mg DAILY PO Last administered on 04/01/18 09:43; Start at 09:30 Active Scripts Active Reported Bumetanide 2 Mg Tablet 1 Tab PO DAILY Dorzolamide-Timolol Eye Drops (Dorzolamide Hcl/Timolol Maleat) 10 Ml Drops 1 Drop EACHEYE BID Ambien (Zolpidem Tartrate) 5 Mg Tablet 1 Tab PO QHS PRN Flonase Allergy Relief (Fluticasone Propionate) 9.9 Ml [place].susp 2 Sprays NS BID Tylenol (Acetaminophen) 325 Mg Tablet 2 Tab PO Q6HRS PRN Alphagan P (Brimonidine Tartrate) 5 Ml Drops 5 Ml OP BID Latanoprost 2.5 Ml Drops 1 Drop EACHEYE QHS Magnesium (Magnesium Oxide) 400 Mg Capsule 250 Mg PO DAILY Coq-10 (Ubidecarenone) 100 Mg Capsule 100 Mg PO DAILY Melatonin 10 Mg Capsule 10 Mg PO HS Ribozel 159 mg Capsule (B1/B2/B3/B5/B6/Fa/B12/C) 1 Each Capsule 1 Each PO DAILY Multivitamins (Multivitamin) 1 Each Tablet 1 Tab PO DAILY Amlodipine Besylate 5 Mg Tablet 10 Mg PO DAILY Zocor (Simvastatin) 20 Mg Tablet 1 Tab PO DAILY Vitals/I & O Vital Sign - Last 24 Hours 03/31/18 03/31/18 03/31/18 03/31/18 12:30 13:32 14:56 18:30 Temp 98.3 97.9 98.3 97.9 Pulse 108 77 72 76 Resp 20 18 18 B/P (MAP) 147/73 (97) 138/64 (88) 126/68 (87) 126/77 (93) Pulse Ox 97 96 95 O2 Delivery Room Air Room Air Room Air 03/31/18 03/31/18 03/31/18 03/31/18 19:00 19:05 19:30 20:30 Temp 98.4 98.4 Pulse 78 72 72 Resp 18 B/P (MAP) 126/54 (78) 101/51 (68) 116/57 (76) Pulse Ox 94 O2 Delivery Room Air Room Air 03/31/18 03/31/18 03/31/18 04/01/18 22:30 23:02 23:30 00:30 Temp 98.7 98.7 Pulse 78 88 66 66 Resp 18 B/P (MAP) 100/53 (69) 100/53 (69) 93/46 (62) 56/ Pulse Ox 94 O2 Delivery Room Air 04/01/18 04/01/18 04/01/18 04/01/18 01:30 03:06 03:26 04:04 Temp 97.8 97.8 Pulse 66 73 76 Resp 16 B/P (MAP) 112/58 (76) 113/60 (77) 87/54 (65) 102/62 (75) Pulse Ox 95 O2 Delivery Room Air 04/01/18 04/01/18 04/01/18 04/01/18 06:45 08:13 08:40 11:00 Temp 97.9 97.4 97.9 97.4 Pulse 77 77 69 Resp 16 18 B/P (MAP) 123/62 (82) 123/62 128/61 (83) Pulse Ox 96 O2 Delivery Room Air Room Air Room Air Intake and Output 03/31/18 03/31/18 04/01/18 15:00 23:00 07:00 Intake Total 350 ml 200 ml Output Total 300 ml 200 ml Balance 50 ml 0 ml DANNA LUNA MD Apr 01, 2018 12:13
[2018-04-01] MEDS ORDERED: WARFARIN 5 MG TABLET. PO ONE (16:00)
--- NOTE | 2018-04-01 17:40 | CARD ---
MR#: [id number] Date of Study: 04/01/2018 Ordering Physician: DB FOX, Referring Physician: DEBBI SNYDER Tech: NICOLE Singh APPROVED REPORT EXAM: Two-dimensional and M-mode echocardiogram with Doppler and color Doppler. Other Information Quality : AverageHR: 72bpm INDICATION Atrial Fibrillation Hypertension/HCVD 2D DIMENSIONS RVDd3.1 (2.9-3.5cm)Left Atrium(2D)2.8 (1.6-4.0cm) IVSd1.3 (0.7-1.1cm)Aortic Root(2D)3.2 (2.0-3.7cm) LVDd3.7 (3.9-5.9cm)LVOT Diameter2.0 (1.8-2.4cm) PWd1.3 (0.7-1.1cm)LVDs1.9 (2.5-4.0cm) LVEF(%)60.0 (>50%) Aortic Valve AoV Peak Rick.108.2cm/sAoV VTI20.8cm AO Peak GR.4.7mmHgLVOT Peak Rick.87.4cm/s LVOT VTI 15.49cmAO Mean GR.3mmHg SKYLER (VMAX)1.68na6RXB (VTI)2.34cm2 AI P 1/2 [id number] Mitral Valve MV E Peak Gr.31mmHgMV DECEL [id number] MV [id number] (PHT)4.34cm2 Pulmonary Valve PV Peak Uldhhklr11.4cm/sPV Peak Grad.3mmHg Tricuspid Valve TR P. [id number]/sTR Peak Gr.20mmHg LEFT VENTRICLE There is mild concentric left ventricular hypertrophy. The left ventricular systolic function is norm al and the ejection fraction is 60%. There is normal LV segmental wall motion. RIGHT VENTRICLE The right ventricle is normal size. The right ventricular systolic function is normal. ATRIA The left atrium size is normal. The right atrium size is normal. The interatrial septum is intact wit h no evidence for an atrial septal defect or patent foramen ovale as noted on 2-D or Doppler imaging. AORTIC VALVE The aortic valve is mildly thickened but opens well. Doppler and Color Flow revealed mild aortic regu rgitation. There is no significant aortic valvular stenosis. There is no aortic valvular vegetation. MITRAL VALVE The mitral valve is normal in structure. Mitral annular calcification is mild. There is no evidence o f mitral valve prolapse. There is no mitral valve stenosis. Doppler and Color-flow revealed mild mitr al regurgitation. TRICUSPID VALVE The tricuspid valve is not well visualized. Doppler and Color Flow revealed trace to mild tricuspid r egurgitation. There is no tricuspid valve stenosis. PULMONIC VALVE The pulmonic valve is not well visualized. Doppler and Color Flow revealed no pulmonic valvular regur gitation. There is no pulmonic valvular stenosis. GREAT VESSELS The aortic root is normal size. The aortic root displays mild sclerocalcific changes of the aortic ro ot. The IVC is dilated and collapses <50% with inspiration. PERICARDIAL EFFUSION There is no pleural effusion. There is a trace of pericardial effusion. Critical Notification Critical Value: No <Conclusion> The left ventricular systolic function is normal and the ejection fraction is 60%. The right ventricle is normal size. The left atrium size is normal. The right atrium size is normal. The aortic valve is mildly thickened but opens well. Doppler and Color Flow revealed mild aortic regurgitation. The mitral valve is normal in structure. Mitral annular calcification is mild. Doppler and Color-flow revealed mild mitral regurgitation. The tricuspid valve is not well visualized. The pulmonic valve is not well visualized. There is a trace of pericardial effusion. Signed by : Db Fox MD Electronically Approved : 04/01/2018 17:39:36
[2018-04-01] MEDS: SIMVASTATIN 20 MG TABLET PO SCH (20:41)
[2018-04-01] MEDS: LATANOPROST 0.005% OPHTH SOLUTION 2.5ML BOTTLE. OU SCH ×2 (20:42→21:07)
[2018-04-02 03:00] VITALS: BP 110/58
[2018-04-02 07:36] VITALS: BP 156/65
[2018-04-02 08:45] VITALS: BP 156/65
[2018-04-02] MEDS: amLODIPine BESYLATE 10 MG TABLET PO SCH (08:45)
[2018-04-02] MEDS: VITAMIN B COMPLEX TABLET. PO SCH (08:45)
[2018-04-02] MEDS: MAGNESIUM OXIDE 400 MG TABLET PO SCH (08:46)
[2018-04-02] MEDS: BUMETANIDE 1 MG TABLET. PO SCH (08:46)
[2018-04-02] MEDS: ENOXAPARIN 40 MG/0.4 ML SYRINGE. SQ SCH (08:46)
[2018-04-02] MEDS: FLUTICASONE 50MCG/NASAL SPRAY 16GM BOTTLE. NS SCH (08:47)
[2018-04-02] MEDS: BRIMONIDINE 0.2% OPHTH SOLUTION 5ML BOTTLE. OU SCH (08:47)
[2018-04-02] MEDS: MULTIVITAMIN with MINERAL TABLET. PO SCH (08:47)
[2018-04-02] MEDS: TIMOLOL 0.5% OPHTH SOLUTION 5ML BOTTLE. OU SCH ×2 (08:47→08:49)
[2018-04-02] MEDS: DORZOLAMIDE 2% OPHTH SOLUTION 10ML BOTTLE. OU SCH (08:47)
[2018-04-02] MEDS ORDERED: POLYETHYLENE GLYCOL 3350 17 GM PACKET. PO PRN (10:00)
--- NOTE | 2018-04-02 11:10 | PDOC ---
PROGRESS NOTES Chief Complaint Chief Complaint CC: A-fib w/ RVR HTN HLD Acute back pain w/ defect L2 and L3 ARF w/ hyperkalemia CHF Cervical stenosis Gait instability Anemia A-fib on anticoagulation Obesity History of Present Illness History of Present Illness Pt. seen and examined Pt. alert and oriented; affect good DW nursing Continues to deny CP, SOB HR improved from yesterday Probable discharge to home w/ home health; DW social work, pt. does not want SNU Pt. requested Miralax Vitals Vitals Vital Signs Date Time Temp Pulse Resp B/P (MAP) Pulse Ox O2 Delivery O2 Flow Rate FiO2 04/02/18 08:45 96 156/65 04/02/18 08:00 Room Air 04/02/18 07:36 98.1 18 94 98.1 Physical Exam General: Alert, Oriented X3, Cooperative Heart: Normal S1, Normal S2, Other (irregular w/ occasional PVCs) Lungs: Clear Abdomen: Normal bowel sounds, Soft Extremities: No clubbing, No edema Skin: No breakdown, No significant lesion Labs LABS Laboratory Tests Test 04/02/18 04:35 Prothrombin Time 13.0 SEC (11.7-14.0) Prothromb Time International Ratio 1.0 (0.8-1.1) Review of Systems Review of Systems Pt. denies chest pain Pt. denies dizziness Assessment and Plan Assessmemt and Plan CC: (1) Atrial fibrillation with tachycardic ventricular rate Assessment: A-fib w/ RVR HTN HLD Acute back pain w/ defect L2 and L3 ARF w/ hyperkalemia CHF Cervical stenosis Gait instability Anemia A-fib on anticoagulation Obesity Plan: Probable discharge to home w/ home health Continue cardiac monitoring Fu w/ cardio; appreciate input Monitor labs Home meds; Cardizem, Miralax Continue current diet Comment Review of Relevant I have reviewed the following items yuriy (where applicable) has been applied. Labs Laboratory Tests Test 03/31/18 11:13 03/31/18 11:59 03/31/18 15:13 03/31/18 23:45 White Blood Count 8.9 x10^3/uL (4.0-11.0) Red Blood Count 5.20 x10^6/uL (3.50-5.40) Hemoglobin 16.2 g/dL (12.0-15.5) Hematocrit 46.5 % (36.0-47.0) Mean Corpuscular Volume 89 fL (79-100) Mean Corpuscular Hemoglobin 31 pg (25-35) Mean Corpuscular Hemoglobin Concent 35 g/dL (31-37) Red Cell Distribution Width 14.0 % (11.5-14.5) Platelet Count 152 x10^3/uL (140-400) Neutrophils (%) (Auto) 74 % (31-73) Lymphocytes (%) (Auto) 16 % (24-48) Monocytes (%) (Auto) 8 % (0-9) Eosinophils (%) (Auto) 1 % (0-3) Basophils (%) (Auto) 1 % (0-3) Neutrophils # (Auto) 6.6 x10^3uL (1.8-7.7) Lymphocytes # (Auto) 1.5 x10^3/uL (1.0-4.8) Monocytes # (Auto) 0.7 x10^3/uL (0.0-1.1) Eosinophils # (Auto) 0.1 x10^3/uL (0.0-0.7) Basophils # (Auto) 0.1 x10^3/uL (0.0-0.2) Prothrombin Time 12.3 SEC (11.7-14.0) Prothromb Time International Ratio 1.0 (0.8-1.1) Activated Partial Thromboplast Time 24 SEC (24-38) Sodium Level 143 mmol/L (136-145) Potassium Level 3.6 mmol/L (3.5-5.1) Chloride Level 101 mmol/L (98-107) Carbon Dioxide Level 32 mmol/L (21-32) Anion Gap 10 (6-14) Blood Urea Nitrogen 29 mg/dL (7-20) Creatinine 1.0 mg/dL (0.6-1.0) Estimated GFR (Cockcroft-Gault) 52.6 BUN/Creatinine Ratio 29 (6-20) Glucose Level 100 mg/dL (70-99) Calcium Level 9.7 mg/dL (8.5-10.1) Magnesium Level 2.3 mg/dL (1.8-2.4) Total Bilirubin 0.6 mg/dL (0.2-1.0) Aspartate Amino Transf (AST/SGOT) 18 U/L (15-37) Alanine Aminotransferase (ALT/SGPT) 23 U/L (14-59) Alkaline Phosphatase 112 U/L (46-116) Creatine Kinase 60 U/L (26-192) Creatine Kinase MB (Mass) 1.1 ng/mL (0.0-3.6) Creatine Kinase MB Relative Index % (0-4) Troponin I Quantitative < 0.017 ng/mL (0.000-0.055) < 0.017 ng/mL (0.000-0.055) HK-Ing-I-Type Natriuretic Peptide 724 pg/mL (0-449) Total Protein 7.1 g/dL (6.4-8.2) Albumin 3.8 g/dL (3.4-5.0) Albumin/Globulin Ratio 1.2 (1.0-1.7) Thyroid Stimulating Hormone (TSH) 2.649 uIU/mL (0.358-3.74) Free Thyroxine 1.01 ng/dL (0.76-1.46) Urine Collection Type U cath Urine Color Yellow Urine Clarity Clear Urine pH 6.0 Urine Specific [place] 1.010 Urine Protein Negative mg/dL (NEG-TRACE) Urine Glucose (UA) Negative mg/dL (NEG) Urine Ketones (Stick) Negative mg/dL (NEG) Urine Blood Negative (NEG) Urine Nitrite Negative (NEG) Urine Bilirubin Negative (NEG) Urine Urobilinogen Dipstick 0.2 mg/dL (0.2 mg/dL) Urine Leukocyte Esterase Negative (NEG) Urine RBC 0 /HPF (0-2) Urine WBC Occ /HPF (0-4) Urine Amorphous Sediment Present /HPF Urine Bacteria 0 /HPF (0-FEW) Urine Hyaline Casts Few /HPF Nasal Screen MRSA (PCR) Negative (Negative) Test 04/02/18 04:35 Prothrombin Time 13.0 SEC (11.7-14.0) Prothromb Time International Ratio 1.0 (0.8-1.1) Laboratory Tests Test 04/02/18 04:35 Prothrombin Time 13.0 SEC (11.7-14.0) Prothromb Time International Ratio 1.0 (0.8-1.1) Medications Current Medications Aspirin (Titus Aspirin) 325 mg 1X ONCE PO Last administered on 03/31/18at 11:02 ; Start 03/31/18 at 10:30; Stop 03/31/18 at 10:37; Status DC Diltiazem HCl (Cardizem) 20 mg 1X ONCE IVP Last administered on 03/31/18at 11: 18; Start 03/31/18 at 11:00; Stop 03/31/18 at 11:01; Status DC Diltiazem HCl 125 mg/Dextrose 125 ml @ 0 mls/hr 1X STAT IV Last administered on 03/31/18at 11:36; Start 03/31/18 at 11:13; Stop 03/31/18 at 11:21; Status DC Ondansetron HCl (Zofran) 4 mg PRN Q8HRS PRN IV NAUSEA/VOMITING; Start 03/31/18 at 12:15; Stop 04/01/18 at 12:14; Status DC Acetaminophen (Tylenol) 650 mg PRN Q6HRS PRN PO MILD PAIN; Start 03/31/18 at 16 :15 Amlodipine Besylate (Norvasc) 10 mg DAILY PO Last administered on 04/02/18at 08: 45; Start 04/01/18 at 09:00 Vitamin B Complex (Elton B) 1 tab DAILY PO Last administered on 04/02/18at 08:45 ; Start 04/01/18 at 09:00 Brimonidine Tartrate (Alphagan) 1 drop BID OU Last administered on 04/02/18 08 :47; Start 03/31/18 at 21:00 Fluticasone Propionate (Flonase) 1 spray BID NS Last administered on 04/02/18at 08:47; Start 03/31/18 at 21:00 Latanoprost (Xalatan) 1 drop QHS OU Last administered on 04/01/18at 21:07; Start 03/31/18 at 21:00 Magnesium Oxide (Magnesium Oxide) 400 mg DAILY PO Last administered on at 08:46; Start 04/01/18 at 09:00 Non-Formulary Medication (Melatonin ) 10 mg HS PO ; Start 03/31/18 at 21:00; Status UNV Multivitamins (Thera M Plus) 1 tab DAILY PO Last administered on 04/02/18at 08: 47; Start 04/01/18 at 09:00 Simvastatin (Zocor) 20 mg HS PO Last administered on 04/01/18at 20:41; Start 06/07 at 21:00 Non-Formulary Medication (Ubidecarenone (Coq-10)) 100 mg DAILY PO ; Start at 09:00; Status UNV Zolpidem Tartrate (Ambien) 5 mg PRN QHS PRN PO INSOMNIA Last administered on 21:34; Start 03/31/18 at 16:30 Enoxaparin Sodium (Lovenox 40mg Syringe) 40 mg BID SQ Last administered on 04/02 08:46; Start 03/31/18 at 21:00 Diltiazem HCl 125 mg/Dextrose 125 ml @ 5 mls/hr CONT PRN IV SEE I/O RECORD Last administered on 03/31/18 21:36; Start 03/31/18 at 21:15 Dorzolamide HCl (Trusopt) 1 drop BID OU Last administered on 04/02/18 08:47; Start 04/01/18 at 09:00 Timolol Maleate (Timoptic 0.5% [facility]) 1 drop BID OU Last administered on 21:00; Start 04/01/18 at 09:00 Bumetanide (Bumex) 2 mg DAILY PO Last administered on 04/02/18 08:46; Start at 09:30 Diltiazem HCl (Cardizem 24hr Cd) 240 mg DAILY PO Last administered on 08:45; Start 04/01/18 at 12:30 Warfarin Sodium (Coumadin) 10 mg 1X WARF ONCE PO Last administered on 16:07; Start 04/01/18 at 16:00; Stop 04/01/18 at 16:01; Status DC Warfarin Sodium (Coumadin Per Physician) 1 each PRN DAILY PRN MC SEE COMMENTS Last administered on 04/02/18 08:54; Start 04/01/18 at 12:30 Polyethylene Glycol (miraLAX PACKET) 17 gm PRN DAILY PRN PO CONSTIPATION; Start 04/02/18 at 10:00 Active Scripts Active Reported Bumetanide 2 Mg Tablet 1 Tab PO DAILY Dorzolamide-Timolol Eye Drops (Dorzolamide Hcl/Timolol Maleat) 10 Ml Drops 1 Drop EACHEYE BID Ambien (Zolpidem Tartrate) 5 Mg Tablet 1 Tab PO QHS PRN Flonase Allergy Relief (Fluticasone Propionate) 9.9 Ml [place].susp 2 Sprays NS BID Tylenol (Acetaminophen) 325 Mg Tablet 2 Tab PO Q6HRS PRN Alphagan P (Brimonidine Tartrate) 5 Ml Drops 5 Ml OP BID Latanoprost 2.5 Ml Drops 1 Drop EACHEYE QHS Magnesium (Magnesium Oxide) 400 Mg Capsule 250 Mg PO DAILY Coq-10 (Ubidecarenone) 100 Mg Capsule 100 Mg PO DAILY Melatonin 10 Mg Capsule 10 Mg PO HS Ribozel 159 mg Capsule (B1/B2/B3/B5/B6/Fa/B12/C) 1 Each Capsule 1 Each PO DAILY Multivitamins (Multivitamin) 1 Each Tablet 1 Tab PO DAILY Amlodipine Besylate 5 Mg Tablet 10 Mg PO DAILY Zocor (Simvastatin) 20 Mg Tablet 1 Tab PO DAILY Vitals/I & O Vital Sign - Last 24 Hours 04/01/18 04/01/18 04/01/18 04/01/18 12:47 15:25 19:27 19:35 Temp 98.0 98.4 98.0 98.4 Pulse 69 69 72 Resp 20 16 B/P (MAP) 128/61 140/64 (89) 129/62 (84) Pulse Ox 94 93 O2 Delivery Room Air Room Air Room Air 04/01/18 04/02/18 04/02/18 04/02/18 23:12 03:00 07:36 08:00 Temp 97.9 98.0 98.1 97.9 98.0 98.1 Pulse 79 59 96 Resp 16 18 B/P (MAP) 112/51 (71) 110/58 (75) 156/65 (95) Pulse Ox 95 94 94 O2 Delivery Room Air Room Air Room Air Room Air 04/02/18 04/02/18 08:45 08:45 Pulse 96 96 B/P (MAP) 156/65 156/65 Intake and Output 04/01/18 04/01/18 04/02/18 15:00 23:00 07:00 Intake Total 270 ml 460 ml 410 ml Output Total 400 ml 700 ml 250 ml Balance -130 ml -240 ml 160 ml TREVOR DWYER III DO Apr 02, 2018 11:10
--- NOTE | 2018-04-02 11:15 | DISCH ---
DISCHARGE WITH HOME HEALTH DISCHARGE INFORMATION: Final Diagnosis: Problems Medical Problems: (1) Atrial fibrillation with tachycardic ventricular rate Status: Acute Condition on Discharge: Stable CODE STATUS: Code Status: Full HOME HEALTH: Face to Face: I certify this patient is under my care and that I, or a nurse practitioner or physician's senior it assistant working with me, had a face to face encounter that meets the physician face to face encounter requirements with this patient on []. Physical Therapy For: Evalulation/Treatment Occupational Therapy For: Evaluation/Treatment Home Health Aide For: Self-care Pt Meets Homebound Status: Poor coordination w/ amb. POST DISCHARGE ORDERS: Activity Instructions for Disc: Activity as tolerated Weight Bearing Status after Di: As tolerated DIET AFTER DISCHARGE: Cardiac CERTIFICATION STATEMENT: Certification Statement: Certification Statement: Based on the above finding, I certify that this patient is confined to the home and needs intermittent senior living care, physical therapy and/or speech therapy, or continues to need occupational therapy.~ This patient is under my care, and I have initiated the establishment of the plan of care.~ This patient will be followed by myself or a community physician who will periodically review the plan of care. Home Meds Reported Medications Bumetanide (BUMETANIDE) 2 Mg Tablet, 1 TAB PO DAILY, #30 TAB 5 Refills 04/01/18 Dorzolamide Hcl/Timolol Maleat (DORZOLAMIDE-TIMOLOL EYE DROPS) 10 Ml Drops, 1 DROP EACHEYE BID, #10 ML 6 Refills 03/31/18 Zolpidem Tartrate (AMBIEN) 5 Mg Tablet, 1 TAB PO QHS PRN for INSOMNIA, #30 TAB 2 Refills 03/31/18 Fluticasone Propionate (Flonase Allergy Relief) 9.9 Ml [place].susp, 2 SPRAYS NS BID, BOTTLE 07/27/17 Acetaminophen (TYLENOL) 325 Mg Tablet, 2 TAB PO Q6HRS PRN for MILD PAIN, #60 TAB 2 Refills 07/26/17 Brimonidine Tartrate (ALPHAGAN P) 5 Ml Drops, 5 ML OP BID, DROP 07/26/17 Latanoprost (LATANOPROST) 2.5 Ml Drops, 1 DROP EACHEYE QHS, #7.5 ML 3 Refills 07/26/17 Magnesium Oxide (MAGNESIUM) 400 Mg Capsule, 250 MG PO DAILY, CAP 07/26/17 Ubidecarenone (COQ-10) 100 Mg Capsule, 100 MG PO DAILY, CAP 07/26/17 Melatonin (MELATONIN) 10 Mg Capsule, 10 MG PO HS, CAP 07/26/17 B1/B2/B3/B5/B6/Fa/B12/C (Ribozel 159 mg Capsule) 1 Each Capsule, 1 EACH PO DAILY , CAP 07/26/17 Multivitamin (MULTIVITAMINS) 1 Each Tablet, 1 TAB PO DAILY, #90 TAB 3 Refills 07/26/17 Amlodipine Besylate (AMLODIPINE BESYLATE) 5 Mg Tablet, 10 MG PO DAILY, TAB 07/26/17 Simvastatin (ZOCOR) 20 Mg Tablet, 1 TAB PO DAILY, #90 TAB 1 Refill 07/26/17 TREVOR DWYER III DO Apr 02, 2018 11:15
[2018-04-02] MEDS ORDERED: WARF-31 PO (11:52)
[2018-04-02] MEDS ORDERED: DILT120C80 PO (11:53)
== END 2018-04-02 14:10 | disposition home or self-care (01) | DRG 309 ==
LOC: ER 10:08 → 2 NORTH 12:05
PROVIDERS: ADMIT Family Medicine; ATTEND Family Medicine
DX: I48.91 Unspecified atrial fibrillation (principal); N17.9 Acute kidney failure, unspecified; D64.9 Anemia, unspecified; E66.9 Obesity, unspecified; E78.00 Pure hypercholesterolemia, unspecified; E78.5 Hyperlipidemia, unspecified; E87.5 Hyperkalemia; H40.9 Unspecified glaucoma; I11.0 Hypertensive heart disease with heart failure; M54.9 Dorsalgia, unspecified; I50.9 Heart failure, unspecified; M48.02 Spinal stenosis, cervical region; M19.90 Unspecified osteoarthritis, unspecified site; Z90.49 Acquired absence of other specified parts of digestive tract; Z68.30 Body mass index [BMI] 30.0-30.9, adult; Z79.01 Long term (current) use of anticoagulants; Z82.49 Family history of ischemic heart disease and other diseases of the circulatory system; Z90.710 Acquired absence of both cervix and uterus; Z96.659 Presence of unspecified artificial knee joint; Z88.6 Allergy status to analgesic agent; Z88.1 Allergy status to other antibiotic agents; Z88.5 Allergy status to narcotic agent; Z88.8 Allergy status to other drugs, medicaments and biological substances; Z98.49 Cataract extraction status, unspecified eye
CPT/HCPCS: 36415; 71045; 80053; 81001; 82553; 83735; 83880; 84439; 84443; 84484; 85025; 85610; 85730; 87641; 93005; 93306; 96365; 96376; J1650; J3490; 97116; 97530; 97535; 99285-25

== ENCOUNTER → 2018-05-15 | Outpatient (CLI) | payer MEDICARE ==
[~2018-05-15] MED LIST changes: +BUME2TAB PO; +DILT120C80 PO; +DORZ10DR7 EACHEYE; +WARF-31 PO
--- NOTE | 2018-05-15 16:50 | KCIC ---
Maxillofacial CT scan without comparison for epistaxis, chronic sinusitis. TECHNIQUE: Contiguous helical 1 mm axial images are obtained from the skull base through the vertex. Sagittal and coronal reformations are evaluated. FINDINGS: Evaluation of the intracranial contents is limited by acquisition parameters designed for bone optimization. No definite soft tissue abnormalities are evident. The mastoid air cells are clear. Bilateral maxillary, sphenoid, ethmoid, and frontal sinuses are all clear as well. Ostiomeatal complexes are patent. There is only mild nasal septal deviation to the left. No significant osseous abnormalities are evident. IMPRESSION: 1. Normal maxillofacial CT scan. Electronically signed by: Saúl Franklin MD (05/15/2018 4:47 PM) [id number]
== END | disposition home or self-care (01) ==
LOC: KCIC CT 10:49
PROVIDERS: ATTEND Otolaryngology Plastic Surgery within the Head & Neck
DX: R04.0 Epistaxis (principal); J34.2 Deviated nasal septum; J32.9 Chronic sinusitis, unspecified
CPT/HCPCS: 70486

== ENCOUNTER 2018-07-19 17:54 | Emergency (ER) | payer MEDICARE ==
[~2018-07-19] VITALS: Ht 162.6 cm; Wt 79.4 kg
[~2018-07-19 17:54] MED LIST changes: +DABI75CA3 PO; -DILT120C80 PO; +DILT120C85 PO; +DORZ10DR6 OU
[2018-07-19] MEDS ORDERED: cloNIDine HCL 0.1 MG TABLET PO ONE (18:45)
--- NOTE | 2018-07-19 18:48 | PHYS DOC ---
Past Medical History Past Medical History: A-Fib, Glaucoma, High Cholesterol, Hypertension, Other Additional Past Medical Histor: over reactive bladder Past Surgical History: Cholecystectomy, Hysterectomy, Knee Replacement, Other Additional Past Surgical Histo: hernia,back sx,eye sx 3 Alcohol Use: None Drug Use: None Adult General Chief Complaint Chief Complaint: DIZZY/LIGHT HEADED [facility] HPI Patient is a 88 year old female who presents with high blood pressure and dizziness/lightheadedness. Patient noted that her blood pressure was elevated on her usual morning check. Subsequently noted that she was lightheaded with standing. Improved with sitting down however does not go all the way away. There is been no focal weakness. Uncertain as to whether the symptoms improve with continued standing since she did not continue to stand up. Denies any rotational component. Denies any chest pain or palpitations. Denies any dyspnea or chest pain with exertion. Denies any recent salt intake increase. Denies any new swelling in her legs or feet other than what's associated with her lift chair being broken. Reports that the legs are actually doing a little bit better since she was started on Bumex recently.[] Review of Systems Review of Systems Constitutional: Denies fever or chills [] Eyes: Denies change in visual acuity, redness, or eye pain [] HENT: Denies nasal congestion or sore throat [] Respiratory: Denies cough or shortness of breath [] Cardiovascular: No additional information not addressed in HPI [] GI: Denies abdominal pain, nausea, vomiting, bloody stools or diarrhea [] : Denies dysuria or hematuria [] Musculoskeletal: Denies back pain or joint pain [] Integument: Denies rash or skin lesions [] Neurologic: Denies headache, focal weakness or sensory changes [] Endocrine: Denies polyuria or polydipsia [] All other systems were reviewed and found to be within normal limits, except as documented in this note. Current Medications Current Medications Current Medications Medications (Trade) Dose Ordered Sig/Pacheco Start Time Stop Time Status Last Admin Dose Admin Clonidine HCl (Catapres) 0.1 mg 1X ONCE 07/19/18 18:45 07/19/18 18:46 DC 07/19/18 19:26 0.1 MG Allergies Allergies Allergies Coded Allergies Type Severity Reaction Last Updated Verified desloratadine Allergy Intermediate 05/19/16 Yes diclofenac Allergy Intermediate 05/19/16 Yes hydrocodone Allergy Intermediate "doesn't work", constipation 11/03/17 Yes lisinopril Allergy Intermediate 05/19/16 Yes meclizine Allergy Intermediate 05/19/16 Yes naphazoline Allergy Intermediate 05/19/16 Yes naproxen Allergy Intermediate 05/19/16 Yes ropinirole Allergy Intermediate 05/19/16 Yes sertraline Allergy Intermediate 05/19/16 Yes venlafaxine Allergy Intermediate 05/19/16 Yes codeine Adverse Reaction Intermediate "doesn't work", constipation 11/03/17 Yes Physical Exam Physical Exam Constitutional: Well developed, well nourished, no acute distress, non-toxic appearance. [] HENT: Normocephalic, atraumatic, bilateral external ears normal, oropharynx moist, no oral exudates, nose normal. [] Eyes: PERRLA, EOMI, conjunctiva normal, no discharge. [] Neck: Normal range of motion, no tenderness, supple, no stridor. [] Cardiovascular:Heart rate regular rhythm, no murmur [] Lungs & Thorax: Bilateral breath sounds clear to auscultation [] Abdomen: Bowel sounds normal, soft, no tenderness, no masses, no pulsatile masses. [] Skin: Warm, dry, no erythema, no rash. [] Back: No tenderness, no CVA tenderness. [] Extremities: No tenderness, no cyanosis, no clubbing, ROM intact, 1+ pretibial edema. [] Neurologic: Alert and oriented X 3, normal motor function, normal sensory function, no focal deficits noted. [] Psychologic: Affect normal, judgement normal, mood normal. [] Current Patient Data Vital Signs Vital Signs Date Time Temp Pulse Resp B/P (MAP) Pulse Ox O2 Delivery O2 Flow Rate FiO2 07/19/18 19:26 78 166/76 07/19/18 17:54 98.2 15 98 Room Air 98.2 Lab Values Laboratory Tests Test 07/19/18 19:15 07/19/18 19:50 White Blood Count 8.3 x10^3/uL (4.0-11.0) Red Blood Count 4.83 x10^6/uL (3.50-5.40) Hemoglobin 15.2 g/dL (12.0-15.5) Hematocrit 43.9 % (36.0-47.0) Mean Corpuscular Volume 91 fL (79-100) Mean Corpuscular Hemoglobin 32 pg (25-35) Mean Corpuscular Hemoglobin Concent 35 g/dL (31-37) Red Cell Distribution Width 14.3 % (11.5-14.5) Platelet Count 127 x10^3/uL (140-400) L Neutrophils (%) (Auto) 70 % (31-73) Lymphocytes (%) (Auto) 19 % (24-48) L Monocytes (%) (Auto) 8 % (0-9) Eosinophils (%) (Auto) 1 % (0-3) Basophils (%) (Auto) 1 % (0-3) Neutrophils # (Auto) 5.8 x10^3uL (1.8-7.7) Lymphocytes # (Auto) 1.6 x10^3/uL (1.0-4.8) Monocytes # (Auto) 0.7 x10^3/uL (0.0-1.1) Eosinophils # (Auto) 0.1 x10^3/uL (0.0-0.7) Basophils # (Auto) 0.1 x10^3/uL (0.0-0.2) Prothrombin Time 14.7 SEC (11.7-14.0) H Prothrombin Time INR 1.2 (0.8-1.1) H Sodium Level 143 mmol/L (136-145) Potassium Level 3.6 mmol/L (3.5-5.1) Chloride Level 103 mmol/L (98-107) Carbon Dioxide Level 29 mmol/L (21-32) Anion Gap 11 (6-14) Blood Urea Nitrogen 27 mg/dL (7-20) H Creatinine 0.9 mg/dL (0.6-1.0) Estimated GFR (Cockcroft-Gault) 59.2 BUN/Creatinine Ratio 30 (6-20) H Glucose Level 116 mg/dL (70-99) H Calcium Level 9.9 mg/dL (8.5-10.1) Total Bilirubin 0.4 mg/dL (0.2-1.0) Aspartate Amino Transferase (AST) 21 U/L (15-37) Alanine Aminotransferase (ALT) 24 U/L (14-59) Alkaline Phosphatase 102 U/L (46-116) Troponin I Quantitative < 0.017 ng/mL (0.000-0.055) HM-Ptt-Z-Type Natriuretic Peptide 232 pg/mL (0-449) Total Protein 7.3 g/dL (6.4-8.2) Albumin 3.7 g/dL (3.4-5.0) Albumin/Globulin Ratio 1.0 (1.0-1.7) Urine Collection Type Void Urine Color Yellow Urine Clarity Clear Urine pH 6.0 Urine Specific [place] 1.015 Urine Protein Negative mg/dL (NEG-TRACE) Urine Glucose (UA) Negative mg/dL (NEG) Urine Ketones (Stick) Negative mg/dL (NEG) Urine Blood Negative (NEG) Urine Nitrite Negative (NEG) Urine Bilirubin Negative (NEG) Urine Urobilinogen Dipstick 0.2 mg/dL (0.2 mg/dL) Urine Leukocyte Esterase Trace (NEG) Urine RBC 0 /HPF (0-2) Urine WBC 5-10 /HPF (0-4) Urine Squamous Epithelial Cells Mod /LPF Urine Bacteria Few /HPF (0-FEW) Urine Mucus Slight /LPF Laboratory Tests 07/19/18 19:15 Laboratory Tests 07/19/18 19:15 EKG EKG EKG shows a regular rhythm with frequent PVCs, rate of 90 bpm, axis of -178, QTC 449 ms, no ST elevations, nonspecific ST-T wave changes, compared with EKG of 06/11/2018, axis change is noted.[] Radiology/Procedures Radiology/Procedures Examination: PORTABLE CHEST 1V History: HTN, DIZZINESS. Comparison/Correlation: 06/11/2018 Portable Chest X-ray Exam Findings: Portable upright frontal view chest was obtained. Heart size is normal. No infiltrate or pleural effusion. Pulmonary hyperinflation is present. Multiple old right-sided rib fractures are present. No pneumothorax. Impression: No infiltrate.[] Course & Med Decision Making Course & Med Decision Making Pertinent Labs and Imaging studies reviewed. (See chart for details) ED course: Patient arrived, was placed in bed, tolerated exam well. Patient reported doing better after getting the Catapres. Patient's blood pressure didn' t improve. Patient was orthostatically negative. Discussed findings with patient and family who voiced understanding. All questions were answered. Delon decision making: There is no evidence of an acute coronary syndrome, no evidence of end organ dysfunction. Patient appears to be a little bit dehydrated probably as a result of the Bumex as evidenced by the elevated BUN to creatinine ratio. Discussed this with the patient and family. We will treat the blood pressure temporarily with additional Catapres. With the instructions for the patient follow-up with her primary care physician for long-term management of her hypertension.[] Dragon Disclaimer Dragon Disclaimer This electronic medical record was generated, in whole or in part, using a voice recognition dictation system. Departure Departure Impression: Primary Impression: Blood pressure elevated Additional Impressions: Dizziness UTI (urinary tract infection) Disposition: HOME, SELF-CARE Condition: GOOD Referrals: LUIS STANFORD APRN (PCP) Follow-up in 2 days Patient Instructions: DASH Diet, Dizziness, Hypertension, Urinary Tract Infection Additional Instructions: Increase her fluid intake. Follow-up with your regular doctor in 2 days. Return to the ER if worsening dizziness, chest pain, or any other concerns. Scripts Clonidine Hcl (CATAPRES) 0.1 Mg Tablet 0.1 MG PO BID, #30 TAB Prov: AMBER SAUCEDA DO 07/19/18 Nitrofurantoin Monohyd/M-Cryst (MACROBID 100 MG CAPSULE) 100 Mg Capsule 1 CAP PO BID, #20 CAP Prov: AMBER SAUCEDA DO 07/19/18 Problem Qualifiers Additional Impressions: UTI (urinary tract infection) Urinary tract infection type: site unspecified Hematuria presence: without hematuria Qualified Codes: N39.0 - Urinary tract infection, site not specified AMBER SAUCEDA DO Jul 19, 2018 18:47
--- NOTE | 2018-07-19 18:53 | EKG ---
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
[2018-07-19 19:38] LABS: CALCIUM 9.9 mg/dL (8.5-10.1); CREATININE 0.9 mg/dL (0.6-1.0); GFR 59.2; POTASSIUM 3.6 mmol/L (3.5-5.1)
[2018-07-19 19:40] LABS: BASO # 0.1 x10^3/uL (0.0-0.2); BASO % 1 % (0-3); EOS # 0.1 x10^3/uL (0.0-0.7); EOS % 1 % (0-3); HEMATOCRIT 43.9 % (36.0-47.0); HEMOGLOBIN 15.2 g/dL (12.0-15.5); LYMPH # 1.6 x10^3/uL (1.0-4.8); LYMPH % 19 % (24-48); MEAN CORPUSCULAR HEMOGLOBIN 32 pg (25-35); MEAN CORPUSCULAR HGB CONC 35 g/dL (31-37); MEAN CORPUSCULAR VOLUME 91 fL (79-100); MONO # 0.7 x10^3/uL (0.0-1.1); MONO % 8 % (0-9); NEUT # 5.8 x10^3uL (1.8-7.7); NEUT % 70 % (31-73); PLATELET COUNT 127 x10^3/uL (140-400); RED BLOOD COUNT 4.83 x10^6/uL (3.50-5.40); RED CELL DISTRIBUTION WIDTH 14.3 % (11.5-14.5); WHITE BLOOD COUNT 8.3 x10^3/uL (4.0-11.0)
[2018-07-19 19:44] LABS: ALBUMIN 3.7 g/dL (3.4-5.0); TOTAL BILIRUBIN 0.4 mg/dL (0.2-1.0); TOTAL PROTEIN 7.3 g/dL (6.4-8.2)
--- NOTE | 2018-07-19 19:44 | RAD ---
Examination: PORTABLE CHEST 1V History: HTN, DIZZINESS. Comparison/Correlation: 06/11/2018 Portable Chest X-ray Exam Findings: Portable upright frontal view chest was obtained. Heart size is normal. No infiltrate or pleural effusion. Pulmonary hyperinflation is present. Multiple old right-sided rib fractures are present. No pneumothorax. Impression: No infiltrate. Electronically signed by: Bruno Fajardo MD (07/19/2018 7:40 PM) [facility]
[2018-07-19 19:49] LABS: PROTHROMBIN TIME PATIENT 14.7 SEC (11.7-14.0)
[2018-07-19 20:01] LABS: BILIRUBIN,URINE NEGATIVE (NEG); COLOR,URINE YELLOW; NITRITE,URINE NEGATIVE (NEG); PROTEIN,URINE NEGATIVE (NEG-TRACE); UROBILINOGEN,URINE 0.2 mg/dL (0.2 mg/dL)
[2018-07-19 20:07] LABS: CLARITY,URINE CLEAR
[2018-07-19 20:08] LABS: BACTERIA,URINE FEW /HPF (0-FEW); RBC,URINE 0 /HPF (0-2); SQUAMOUS EPITHELIAL CELL,UR MOD /LPF
[2018-07-19 20:30] VITALS: BP 142/66
[2018-07-19] MEDS ORDERED: CLON0.1T12 PO (20:32)
[2018-07-19] MEDS ORDERED: NITR100C62 PO (20:32)
== END 2018-07-19 20:40 | disposition home or self-care (01) ==
LOC: ER 17:54
DX: I10 Essential (primary) hypertension (principal); N39.0 Urinary tract infection, site not specified; I48.91 Unspecified atrial fibrillation; E78.00 Pure hypercholesterolemia, unspecified; Z90.49 Acquired absence of other specified parts of digestive tract; Z88.8 Allergy status to other drugs, medicaments and biological substances; Z88.5 Allergy status to narcotic agent
CPT/HCPCS: 36415; 71045; 80053; 81001; 83880; 84484; 85025; 85610; 87086; 93005; 99284

== ENCOUNTER → 2019-02-01 | Outpatient (CLI) | payer MEDICARE ==
[~2019-02-01] MED LIST changes: +AMLO5TAB10 PO; -AMLO5TAB7 PO; -BUME2TAB PO; +BUME2TAB3 PO; +CIPR250T30 PO; +CLON0.1T12 PO; +NITR100C62 PO; +POTA20TA82 PO; +REGADENOSON 0.4 MG/5 ML DISP.SYRIN. IV ONE
--- NOTE | 2019-02-01 14:16 | RAD ---
MR#: [id number] Date of Study: 02/01/2019 Ordering Physician: MARCO ANTONIO SOUSA, Referring Physician: NATACHA DARNELL Tech: RT Philomena (R) (N) APPROVED REPORT Test Type: Pharmacological Stress Nurse/Tech: Ksenia Rios R.N. Test Indications: dyspnea Cardiac History: afib, htn Medications: see ehr Medical History: see ehr Resting ECG: SR Resting Heart Rate: 60 bpm Resting Blood Pressure: 153/60mmHg Pretest Chest Pain: No chest pain Nurse/Tech Notes lungs cta, diminished, heart tones irregular with additional beats Consent: The procedure was explained to the patient in lay terms. Informed consent was witnessed. Mau eout was entered into [employer]. History and Stress Test performed by RT Wanda (R) (N) Pharm. Details Pharmacologic stress testing was performed using 0.4mg per 5ml of regadenoson given intravenously ove r 7-10 seconds. Stress Symptoms No chest pain or symptoms. POST EXERCISE Reason for Termination: Infusion complete Target HR: No Max HR: 89 bpm Max Blood Pressure: 148/57mmHg Chest Pain: No. Arrhythmia: Yes. unifocal PVCs noted ST Change: No. INTERPRETATION Stress EKG Conclusion: The resting EKG shows a sinus rhythm with mild nonspecific ST segment changes. The stress EKG shows no evidence of stress-induced ischemia. Imaging Protocol IMAGE PROTOCOL: Rest Tc-99m/stress Tc-99m 1 day Rest: Stress: Viability: Radiopharm.Tc99m YexjxagtqEw70e Sestamibi Ygar56zIj 31.6mCi Duration 15min. 15min. Img Date 02/01/2019 02/01/2019 Inj-Img Snah37nvr. 60min. Rest Admin Site:IV - Left AntecubitalAdministrator:RT Philomena (Alvaro)(N) Stress Admin Site: IV - Left AntecubitalAdministrator: RT Belem Muñoz)(N) STRESS DATA End Diast. Vol.64.0mlLVEDV index BSA34.0ml End Syst. Vol.11.0mlLVESV index BSA6.0ml Myocardial Wbjy308.0gEject. Ulpzasur54.0% Stress Scores Regional WT0.00Summed WT4.00 Regional WM0.00Summed WM0.00 LV Perfusion The stress scans showed no significant defects. The rest scans showed no significant defects. Nuclear imaging shows no reversible ischemia or infarct. Wall Motion Left ventricular systolic function is normal with no regional wall motion abnormalities and an ejecti on fraction of greater than 70%. LV Perf. Quant 17 Seg. SSS1.00 17 Seg. SRS1.00 17 Seg. SDS0.00 Stress Defect Extent (% LAD)0.00Rest Defect Extent (% LAD)0.60Rev. Defect Extent (% LAD)0.00 Stress Defect Extent (% LCX) 0.00Rest Defect Extent (% LCX)0.00Rev. Defect Extent (% LCX)0.00 Stress Defect Extent (% RCA)0.00Rest Defect Extent (% RCA)0.00Rev. Defect Extent (% RCA)0.00 Stress Defect Extent (% CINDY)0.00Rest Defect Extent (% CINDY)0.90Rev. Defect Extent (% CINDY)0.00 Conclusion 1. No EKG evidence of stress-induced ischemia. 2. Nuclear imaging shows no reversible ischemia or infarct. 3. Normal left ventricular systolic function with an ejection fraction of greater than 70%. 4. Moderately low risk Lexiscan nuclear stress test. Signed by : Harvinder Starkey MD Electronically Approved : 02/01/2019 14:15:48
--- NOTE | 2019-02-08 11:07 | RAD ---
MR#: [id number] Date of Study: 02/01/2019 Ordering Physician: YOVANI SOUSA, Referring Physician: YOVANI SOUSA, Tech: Ernesto Naidu, LEBRON, RDMS, RVT, RDCS, RTR APPROVED REPORT Patient Location : OUT-PATIENT Indications Venous insufficiency Findings Grayscale images of the bilateral saphenofemoral junctions do not reveal any obvious evidence of thro mbus. Spectral waveforms and color Doppler reveal no obvious reflux noted. The right great saphenous vein measures 6.9 mm and the left great saphenous vein measures 5.5 mm. The bilateral lesser saphenou s veins do not reveal any obvious evidence of reflux. Critical Notification Critical Value: No <Conclusion> 1. Negative for reflux in the bilateral greater and lesser saphenous veins. Signed by : Yovani Sousa, Electronically Approved : 02/08/2019 11:07:10
--- NOTE | 2019-02-08 12:08 | RAD ---
MR#: [id number] Date of Study: 02/01/2019 Ordering Physician: MARCO ANTONIO SOUSA, Referring Physician: MARCO ANTONIO SOUSA, Tech: Ernesto Naidu MBA, RDMS, RVT, RDCS, RTR APPROVED REPORT Bilateral Lower Extremity Venous Study for DVT Patient Location: OUT-PATIENT Indications venous insufficiency Vein Imaging (Right) CFV (R): Compressible SFJ (R): Compressible FEM (R): Compressible POP (R): Compressible DFV (R): Compressible PTV (R): Spontaneous GSV (R): Spontaneous Peroneals (R): Spontaneous Vein Imaging (Left) CFV (L): Compressible SFJ (L): Compressible FEM (L): Compressible POP (L): Compressible DFV (L): Compressible PTV (L): Spontaneous GSV (L): Spontaneous Peroneals (L): Spontaneous Doppler Evaluation (Right) CFV (R): Spontaneous POP (R):Spontaneous Doppler Evaluation (Left) CFV (L):Spontaneous POP (L):Spontaneous Findings The bilateral lower extremity deep veins were evaluated for thrombus with color Doppler, spectral and grayscale images. On the right the grayscale images of the common femoral, superficial femoral and popliteal veins do n ot demonstrate any evidence of thrombus and these veins appear to be compressible. The below-knee vei ns were not well visualized but grossly appear to be compressible. Spectral imaging and color Doppler do not reveal any evidence of obstruction to flow with normal respirophasic variation above the knee . Below the knee there is spontaneous flow noted. On the left, the grayscale images of the common femoral, superficial femoral and popliteal veins do n ot demonstrate any evidence of thrombus and these veins appear to be compressible. The below-knee vei ns again were not well visualized but grossly appear to be compressible. Spectral imaging and color D oppler do not reveal any evidence of obstruction to flow with normal respirophasic variation above th e knee. The below-knee veins demonstrate spontaneous flow. Critical Notification Critical Value: No <Conclusion> 1. Negative for DVT in the bilateral lower extremity deep veins. Signed by : Marco Antonio Sousa, Electronically Approved : 02/08/2019 12:07:20
== END | disposition home or self-care (01) ==
LOC: NM 07:40
PROVIDERS: ATTEND Internal Medicine Cardiovascular Disease
DX: I87.2 Venous insufficiency (chronic) (peripheral) (principal); R06.00 Dyspnea, unspecified; I11.0 Hypertensive heart disease with heart failure; I50.9 Heart failure, unspecified; I48.91 Unspecified atrial fibrillation
CPT/HCPCS: 78452; 93017; 93970; A9500; J2785

== ENCOUNTER → 2019-04-12 | Outpatient (CLI) | payer MEDICARE ==
[2019-02-16 10:49] VITALS: BP 158/72
[~2019-04-12] MED LIST changes: -REGADENOSON 0.4 MG/5 ML DISP.SYRIN. IV ONE
--- NOTE | 2019-04-12 20:23 | KCIC ---
Indication:Recent fall. Hand tenderness. TECHNIQUE: 3 views of right hand COMPARISON: None FINDINGS: Diffuse osteopenia limits sensitivity of detecting subtle fracture. Severe first CMC joint ulcer arthritis. Severe interphalangeal joint arthritis in the thumb. 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 No acute fracture or dislocation seen. Pression: As above. Electronically signed by: John Newman DO (04/12/2019 8:20 PM) [facility]
--- NOTE | 2019-04-13 08:06 | KCIC ---
Three-view right rib detail series and PA view chest x-ray Clinical indications: Recent fall. Right rib pain. COMPARISON: Chest x-ray dated June 22, 2018. FINDINGS: Old healed fractures of the lateral aspect of the right fourth fifth sixth seventh and eighth ribs are seen. No acute-appearing right rib fracture is seen. Mild right lung base atelectasis is seen. Chronic scarring of the left lung base is seen. No lung consolidation or pleural effusion or pneumothorax is evident. The heart size and mediastinum and pulmonary vasculature and both eneida are stable. Methylmethacrylate treatment of compression fractures of the spine is evident. IMPRESSION: Old healed right rib cage fractures. No acute-appearing fracture is seen. If an occult fracture is suspected clinically, then a chest CT may be helpful for further evaluation. Electronically signed by: David Frankel MD (04/13/2019 8:03 AM) [id number]
--- NOTE | 2019-04-13 09:22 | KCIC ---
Three-view left foot study Clinical indications: Recent fall. Left foot pain. FINDINGS: Previous bunion surgery is evident. Old healed fracture of the distal fifth metatarsal bone is seen. No acute-appearing fracture is seen. No dislocation is seen. No lytic process is evident. Plantar and posterior spurs the calcaneus are seen. IMPRESSION: No acute fracture. Electronically signed by: David Frankel MD (04/13/2019 9:19 AM) [id number]
== END | disposition home or self-care (01) ==
LOC: KCIC 14:28
PROVIDERS: ATTEND Nurse Practitioner Family
DX: M85.841 Other specified disorders of bone density and structure, right hand (principal); M19.041 Primary osteoarthritis, right hand; J98.11 Atelectasis; J98.4 Other disorders of lung; M79.672 Pain in left foot; W19.XXXA Unspecified fall, initial encounter; Y93.89 Activity, other specified; Y92.89 Other specified places as the place of occurrence of the external cause; Y99.8 Other external cause status
CPT/HCPCS: 71101; 73130; 73630

== ENCOUNTER 2019-04-13 19:07 | Emergency (ER) | payer MEDICARE ==
[~2019-04-13] VITALS: Ht 162.6 cm; Wt 77.1 kg
--- NOTE | 2019-04-13 19:35 | PHYS DOC ---
Past Medical History Past Medical History: A-Fib, Glaucoma, High Cholesterol, Hypertension, Other Additional Past Medical Histor: OVERACTIVE BLADDER Past Surgical History: Cholecystectomy, Hysterectomy, Knee Replacement, Other Additional Past Surgical Histo: hernia,back sx,eye sx 3 Alcohol Use: None Drug Use: None Adult General Chief Complaint Chief Complaint: OVERDOSE HPI HPI 88-year-old female presents to the emergency department with complaints of axonal drug ingestion. She is currently on pradaxa 75 mg twice a day for A. fib. She states she took an extra dose this evening because she forgot that she is very taken one. She denies any black or tarry stools, no increased bruising. She did have a fall Friday however she was seen by her primary care physician with imaging as an outpatient. She was called with imaging today with negative results. Patient has any chest pain, shortness breath, nausea, vomiting. Review of Systems Review of Systems HENT: Denies nasal congestion or sore throat [] Respiratory: Denies cough or shortness of breath [] Cardiovascular: No additional information not addressed in HPI [] GI: Denies abdominal pain, nausea, vomiting, bloody stools or diarrhea [] Musculoskeletal: Denies back pain or joint pain [] Integument: Denies rash or skin lesions [] Neurologic: Denies headache, focal weakness or sensory changes [] All other systems were reviewed and found to be within normal limits, except as documented in this note. Allergies Allergies Allergies Coded Allergies Type Severity Reaction Last Updated Verified desloratadine Allergy Intermediate 05/19/16 Yes diclofenac Allergy Intermediate 05/19/16 Yes hydrocodone Allergy Intermediate "doesn't work", constipation 11/03/17 Yes lisinopril Allergy Intermediate 05/19/16 Yes meclizine Allergy Intermediate 05/19/16 Yes naphazoline Allergy Intermediate 05/19/16 Yes naproxen Allergy Intermediate 05/19/16 Yes ropinirole Allergy Intermediate 05/19/16 Yes sertraline Allergy Intermediate 05/19/16 Yes venlafaxine Allergy Intermediate 05/19/16 Yes codeine Adverse Reaction Intermediate "doesn't work", constipation 11/03/17 Yes Physical Exam Physical Exam Constitutional: Well developed, well nourished, no acute distress, non-toxic appearance. [] HENT: Normocephalic, atraumatic, bilateral external ears normal, oropharynx moist, no oral exudates, nose normal. [] Eyes: PERRLA, EOMI, conjunctiva normal, no discharge. [] Cardiovascular:Heart rate regular rhythm, no murmur [] Lungs & Thorax: Bilateral breath sounds clear to auscultation [] Abdomen: Bowel sounds normal, soft, no tenderness, no masses, no pulsatile masses. [] Skin: Warm, dry, no erythema, no rash, she does have bruising appreciated to her left ankle however should follow-up Mir this is not acute from today. Extremities: No tenderness, no cyanosis, trace edema. [] Neurologic: Alert and oriented X 3, normal motor function, normal sensory function, no focal deficits noted. [] Psychologic: Affect normal, judgement normal, mood normal. [] Current Patient Data Vital Signs Vital Signs Date Time Temp Pulse Resp B/P (MAP) Pulse Ox O2 Delivery O2 Flow Rate FiO2 04/13/19 19:25 98.1 87 18 174/80 (111) 93 Room Air 98.1 Lab Values Laboratory Tests Test 04/13/19 19:30 White Blood Count 7.4 x10^3/uL (4.0-11.0) Red Blood Count 5.04 x10^6/uL (3.50-5.40) Hemoglobin 15.5 g/dL (12.0-15.5) Hematocrit 44.9 % (36.0-47.0) Mean Corpuscular Volume 89 fL (79-100) Mean Corpuscular Hemoglobin 31 pg (25-35) Mean Corpuscular Hemoglobin Concent 35 g/dL (31-37) Red Cell Distribution Width 14.1 % (11.5-14.5) Platelet Count 122 x10^3/uL (140-400) L Neutrophils (%) (Auto) 69 % (31-73) Lymphocytes (%) (Auto) 20 % (24-48) L Monocytes (%) (Auto) 9 % (0-9) Eosinophils (%) (Auto) 2 % (0-3) Basophils (%) (Auto) 1 % (0-3) Neutrophils # (Auto) 5.1 x10^3/uL (1.8-7.7) Lymphocytes # (Auto) 1.5 x10^3/uL (1.0-4.8) Monocytes # (Auto) 0.6 x10^3/uL (0.0-1.1) Eosinophils # (Auto) 0.1 x10^3/uL (0.0-0.7) Basophils # (Auto) 0.1 x10^3/uL (0.0-0.2) Prothrombin Time 13.6 SEC (11.7-14.0) Prothrombin Time INR 1.1 (0.8-1.1) Laboratory Tests 04/13/19 19:30 EKG EKG [] Radiology/Procedures Radiology/Procedures [] Course & Med Decision Making Course & Med Decision Making Pertinent Labs and Imaging studies reviewed. (See chart for details) []88-year-old female presents to the emergency department with complaints of axonal drug ingestion. She is currently on pradaxa 75 mg twice a day for A. fib. She states she took an extra dose this evening because she forgot that she is very taken one. She denies any black or tarry stools, no increased bruising. She did have a fall however she was seen by her primary care physician with imaging as an outpatient. She was called with imaging today with negative results. Patient has any chest pain, shortness breath, nausea, vomiting. Discussed with poison control, we'll get baseline CBC for hemoglobin as well as platelet count. PT/INR as well. Would recommend follow-up with her primary care physician in 2-3 days for evaluation of scan to make sure no significant bruising, consider repeating laboratory studies at that time. Discussed with patient watching for dark tarry stools, concerns for GI bleed, nosebleed, etc. Labs reviewed, hemoglobin 15.5, INR 1.1, platelet count 122. Plan for discharge home for follow-up as an outpatient primary care physician 3-5 days for reevaluation laboratory studies as well as examination of scan. Discussed with son at bedside regarding signs and symptoms of GI bleed, bruising, epistaxis. Dragon Disclaimer Dragon Disclaimer This electronic medical record was generated, in whole or in part, using a voice recognition dictation system. Departure Departure Impression: Primary Impression: Accidental drug ingestion Disposition: HOME, SELF-CARE Condition: STABLE Referrals: LUIS STANFORD APRN (PCP) Patient Instructions: Overdose, Accidental Additional Instructions: Recommend follow up with PCP 3 - 5 days for reevaluation of skin and labs if warranted Return to the ER with worsening symptoms, intractable pain, fever, altered mental status, bleeding Resume pradaxa in AM as prescribed Problem Qualifiers Primary Impression: Accidental drug ingestion Encounter type: initial encounter Qualified Codes: T50.901A - Poisoning by unspecified drugs, medicaments and biological substances, accidental (unintentional), initial encounter NASREEN DOWELL MD Apr 13, 2019 19:35
[2019-04-13 19:40] LABS: BASO # 0.1 x10^3/uL (0.0-0.2); BASO % 1 % (0-3); EOS # 0.1 x10^3/uL (0.0-0.7); EOS % 2 % (0-3); HEMATOCRIT 44.9 % (36.0-47.0); HEMOGLOBIN 15.5 g/dL (12.0-15.5); LYMPH # 1.5 x10^3/uL (1.0-4.8); LYMPH % 20 % (24-48); MEAN CORPUSCULAR HEMOGLOBIN 31 pg (25-35); MEAN CORPUSCULAR HGB CONC 35 g/dL (31-37); MEAN CORPUSCULAR VOLUME 89 fL (79-100); MONO # 0.6 x10^3/uL (0.0-1.1); MONO % 9 % (0-9); NEUT # 5.1 x10^3/uL (1.8-7.7); NEUT % 69 % (31-73); PLATELET COUNT 122 x10^3/uL (140-400); RED BLOOD COUNT 5.04 x10^6/uL (3.50-5.40); RED CELL DISTRIBUTION WIDTH 14.1 % (11.5-14.5); WHITE BLOOD COUNT 7.4 x10^3/uL (4.0-11.0)
[2019-04-13 19:52] LABS: PROTHROMBIN TIME PATIENT 13.6 SEC (11.7-14.0)
[2019-04-13 20:50] VITALS: BP 182/81
== END 2019-04-13 20:50 | disposition home or self-care (01) ==
LOC: ER 19:07
DX: T45.511A Poisoning by anticoagulants, accidental (unintentional), initial encounter (principal); I48.91 Unspecified atrial fibrillation; E78.00 Pure hypercholesterolemia, unspecified; I10 Essential (primary) hypertension; Z90.49 Acquired absence of other specified parts of digestive tract; Z90.710 Acquired absence of both cervix and uterus; Z96.659 Presence of unspecified artificial knee joint; Z88.5 Allergy status to narcotic agent; Z88.6 Allergy status to analgesic agent; Z88.8 Allergy status to other drugs, medicaments and biological substances; Y92.89 Other specified places as the place of occurrence of the external cause
CPT/HCPCS: 36415; 85025; 85610; 99284

== ENCOUNTER 2019-06-10 06:49 | Inpatient (IN) | payer MEDICARE ==
[~2019-06-10] VITALS: Ht 167.6 cm; Wt 78.2 kg
[~2019-06-10 06:49] MED LIST changes: +AMIO200T4 PO; -DILT120C85 PO; +DILT120C99 PO; +HYDR-2868 PO; +OXYB5TAB10 PO; -OXYB5TAB7 PO
[2019-06-10] MEDS ORDERED: dilTIAZem INJ 125 MG in IV DEXTROSE 5% 100ML 100 ML IV ONE (07:00)
[2019-06-10] MEDS ORDERED: dilTIAZem IV PUSH 25 MG/5 ML VIAL IVP ONE (07:00)
--- NOTE | 2019-06-10 07:10 | PHYS DOC ---
Past Medical History Past Medical History: A-Fib, CAD, Hypertension Additional Past Medical Histor: OVERACTIVE BLADDER Past Surgical History: Cholecystectomy, Hysterectomy, Knee Replacement Additional Past Surgical Histo: hernia,back sx,eye sx 3 Alcohol Use: None Drug Use: None Adult General Chief Complaint Chief Complaint: DIZZY/LIGHT HEADED HPI HPI Patient is a 89 year old female patient with history of hypertension, coronary artery disease, atrial fibrillation who presents via EMS with complaint of dizziness and palpitation. Patient was admitted on June 06 with diagnosis of atrial fibrillation with RVR and discharged home yesterday with prescription of hydralazine and amiodarone. Patient states she started hydralazine last night and felt hot with dry mouth and thinks she had an allergic hydralazine. Patient complaining of dizziness and palpitation during night like her previous episodes of atrial fibrillation with RVR. EMS reports the patient has heart rate of 140 feet atrial fibrillation. Patient denies chest pain, shortness of breath, focal neuro deficit, fever and chills, rash, itching. Review of Systems Review of Systems Constitutional: Denies fever or chills [] Eyes: Denies change in visual acuity, redness, or eye pain [] HENT: Denies nasal congestion or sore throat [] Respiratory: Denies cough or shortness of breath [] Cardiovascular: No additional information not addressed in HPI [] GI: Denies abdominal pain, nausea, vomiting, bloody stools or diarrhea [] : Denies dysuria or hematuria [] Musculoskeletal: Denies back pain or joint pain [] Integument: Denies rash or skin lesions [] Neurologic: Denies headache, focal weakness or sensory changes [] Endocrine: Denies polyuria or polydipsia [] All other systems were reviewed and found to be within normal limits, except as documented in this note. Current Medications Current Medications Current Medications Medications (Trade) Dose Ordered Sig/Pacheco Start Time Stop Time Status Last Admin Dose Admin Diltiazem HCl (Cardizem Iv Push) 20 mg 1X ONCE 06/10/19 07:00 06/10/19 07:08 DC 06/10/19 07:25 20 MG Diltiazem HCl 125 mg/Dextrose 125 ml @ 10 mls/hr 1X ONCE 06/10/19 07:00 06/10/19 14:08 DC 06/10/19 08:29 10 MLS/HR Allergies Allergies Allergies Coded Allergies Type Severity Reaction Last Updated Verified desloratadine Allergy Intermediate 05/19/16 Yes diclofenac Allergy Intermediate 05/19/16 Yes lisinopril Allergy Intermediate 05/19/16 Yes meclizine Allergy Intermediate 05/19/16 Yes naphazoline Allergy Intermediate 05/19/16 Yes naproxen Allergy Intermediate 05/19/16 Yes ropinirole Allergy Intermediate 05/19/16 Yes sertraline Allergy Intermediate 05/19/16 Yes venlafaxine Allergy Intermediate 05/19/16 Yes codeine Adverse Reaction Intermediate "doesn't work", constipation 11/03/17 Yes hydrocodone Adverse Reaction Intermediate "doesn't work", constipation 06/07/19 Yes Physical Exam Physical Exam Constitutional: Well developed, well nourished, mild distress, non-toxic appearance. [] HENT: Normocephalic, atraumatic, bilateral external ears normal, oropharynx moist, no oral exudates, nose normal. [] Eyes: PERRLA, EOMI, conjunctiva normal, no discharge. [] Neck: Normal range of motion, no tenderness, supple, no stridor. [] Cardiovascular: Irregularly irregular rhythm with tachycardia, no murmur [] Lungs & Thorax: Bilateral breath sounds clear to auscultation [] Abdomen: Bowel sounds normal, soft, no tenderness, no masses, no pulsatile masses. [] Skin: Warm, dry, no erythema, no rash. [] Back: No tenderness, no CVA tenderness. [] Extremities: No tenderness, no cyanosis, no clubbing, ROM intact, no edema. [] Neurologic: Alert and oriented X 3, normal motor function, normal sensory function, no focal deficits noted. [] Psychologic: Affect normal, judgement normal, mood normal. [] Current Patient Data Vital Signs Vital Signs Date Time Temp Pulse Resp B/P (MAP) Pulse Ox O2 Delivery O2 Flow Rate FiO2 06/10/19 07:30 118 21 98 06/10/19 07:25 152/93 06/10/19 06:49 97.7 Room Air 97.7 Lab Values Laboratory Tests Test 06/10/19 07:16 White Blood Count 8.0 x10^3/uL (4.0-11.0) Red Blood Count 5.31 x10^6/uL (3.50-5.40) Hemoglobin 16.1 g/dL (12.0-15.5) H Hematocrit 47.7 % (36.0-47.0) H Mean Corpuscular Volume 90 fL (79-100) Mean Corpuscular Hemoglobin 30 pg (25-35) Mean Corpuscular Hemoglobin Concent 34 g/dL (31-37) Red Cell Distribution Width 14.0 % (11.5-14.5) Platelet Count 123 x10^3/uL (140-400) L Neutrophils (%) (Auto) 77 % (31-73) H Lymphocytes (%) (Auto) 15 % (24-48) L Monocytes (%) (Auto) 6 % (0-9) Eosinophils (%) (Auto) 2 % (0-3) Basophils (%) (Auto) 1 % (0-3) Neutrophils # (Auto) 6.2 x10^3/uL (1.8-7.7) Lymphocytes # (Auto) 1.2 x10^3/uL (1.0-4.8) Monocytes # (Auto) 0.5 x10^3/uL (0.0-1.1) Eosinophils # (Auto) 0.1 x10^3/uL (0.0-0.7) Basophils # (Auto) 0.0 x10^3/uL (0.0-0.2) Prothrombin Time 15.1 SEC (11.7-14.0) H Prothrombin Time INR 1.2 (0.8-1.1) H Sodium Level 144 mmol/L (136-145) Potassium Level 3.8 mmol/L (3.5-5.1) Chloride Level 107 mmol/L (98-107) Carbon Dioxide Level 24 mmol/L (21-32) Anion Gap 13 (6-14) Blood Urea Nitrogen 23 mg/dL (7-20) H Creatinine 1.0 mg/dL (0.6-1.0) Estimated GFR (Cockcroft-Gault) 52.3 BUN/Creatinine Ratio 23 (6-20) H Glucose Level 121 mg/dL (70-99) H Calcium Level 9.1 mg/dL (8.5-10.1) Magnesium Level 2.2 mg/dL (1.8-2.4) Total Bilirubin 0.7 mg/dL (0.2-1.0) Aspartate Amino Transferase (AST) 14 U/L (15-37) L Alanine Aminotransferase (ALT) 17 U/L (14-59) Alkaline Phosphatase 124 U/L (46-116) H Creatine Kinase 32 U/L (26-192) Troponin I Quantitative < 0.017 ng/mL (0.000-0.055) SI-Dmp-R-Type Natriuretic Peptide 2546 pg/mL (0-449) H Total Protein 7.3 g/dL (6.4-8.2) Albumin 3.5 g/dL (3.4-5.0) Albumin/Globulin Ratio 0.9 (1.0-1.7) L Laboratory Tests 06/10/19 07:16 Laboratory Tests 06/10/19 07:16 EKG EKG EKG interpreted by me. EKG at 0700 showed atrial fibrillation with RVR at rate of 142, left fourth axis, no acute ST and T-wave elevation. Radiology/Procedures Radiology/Procedures [][facility] [address] [place], [place] [id number] IMAGING REPORT Signed PATIENT: QUITA FRANCO ACCOUNT: [id number] : 1930 LOCATION: ER AGE: 89 SEX: F EXAM STATUS: REG ER ORD. PHYSICIAN: ISHA HIGGINBOTHAM MD REASON: atrial fibrillation PROCEDURE: PORTABLE CHEST 1V EXAM: CHEST ONE VIEW. HISTORY: Atrial fibrillation. COMPARISON: 06/06/2019. FINDINGS: A frontal view of the chest is obtained. Hyperinflation suggests chronic obstructive pulmonary disease. There are no confluent infiltrates. There is no pneumothorax or pleural effusion. The heart is not enlarged. There are atherosclerotic calcifications of the aorta. There are multiple chronic right rib fractures. IMPRESSION: 1. Correlate for chronic obstructive pulmonary disease. No confluent infiltrates. Electronically signed by: Gaurav Diallo MD (06/10/2019 8:13 AM) [facility] DICTATED and SIGNED BY: KATHERYN DIALLO MD DATE: 06/10/19812 Course & Med Decision Making Course & Med Decision Making Pertinent Labs and Imaging studies reviewed. (See chart for details) Evaluation of patient in ER showed 89-year-old female patient with history of recent hospitalization and atrial flutter patient brought in by ambulance because of a truck patient with RVR. Patient started hydralazine last night and believes that she has allergic reaction to hydralazine. Patient did not have respiratory mild erythema in her face. Patient treated with Cardizem bolus and d rip with improvement of heart rate. Patient had been admitted with improvement of her hot feeling.Patient requiring admission for further evaluation and treatment. Discussed with Dr. Sosa who is in agreement with admission. Discussed findings and plan with patient and family, who acknowledge understanding and agreement. Dragon Disclaimer Dragon Disclaimer This electronic medical record was generated, in whole or in part, using a voice recognition dictation system. Departure Departure Impression: Primary Impression: Atrial fibrillation with RVR Additional Impressions: Allergic reaction caused by a drug CHF (congestive heart failure) Dizziness Disposition: ADMITTED INPATIENT (at 0800) Admitting Physician: HADLEY (Dr. Sosa accepted admission at 0759) Condition: IMPROVED Referrals: LUIS STANFORD APRN (PCP) Problem Qualifiers Additional Impressions: Allergic reaction caused by a drug Encounter type: initial encounter Qualified Codes: T78.40XA - Allergy, unspecified, initial encounter CHF (congestive heart failure) Heart failure type: unspecified Heart failure chronicity: unspecified Qualified Codes: I50.9 - Heart failure, unspecified ISHA HIGGINBOTHAM MD Jun 10, 2019 07:10
--- NOTE | 2019-06-10 07:29 | EKG ---
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
[2019-06-10 07:33] LABS: BASO % 1 % (0-3); EOS # 0.1 x10^3/uL (0.0-0.7); EOS % 2 % (0-3); HEMATOCRIT 47.7 % (36.0-47.0); HEMOGLOBIN 16.1 g/dL (12.0-15.5); LYMPH # 1.2 x10^3/uL (1.0-4.8); LYMPH % 15 % (24-48); MEAN CORPUSCULAR HEMOGLOBIN 30 pg (25-35); MEAN CORPUSCULAR HGB CONC 34 g/dL (31-37); MEAN CORPUSCULAR VOLUME 90 fL (79-100); MONO # 0.5 x10^3/uL (0.0-1.1); MONO % 6 % (0-9); NEUT # 6.2 x10^3/uL (1.8-7.7); NEUT % 77 % (31-73); PLATELET COUNT 123 x10^3/uL (140-400); RED BLOOD COUNT 5.31 x10^6/uL (3.50-5.40)
[2019-06-10 07:34] LABS: GFR 52.3; POTASSIUM 3.8 mmol/L (3.5-5.1)
[2019-06-10 07:43] LABS: PROTHROMBIN TIME PATIENT 15.1 SEC (11.7-14.0)
[2019-06-10] MEDS ORDERED: diphenhydrAMINE 50 MG/ML VIAL IVP ONE (07:45)
[2019-06-10 07:52] LABS: ALBUMIN 3.5 g/dL (3.4-5.0); ALBUMIN/GLOBULIN RATIO 0.9 (1.0-1.7); MAGNESIUM 2.2 mg/dL (1.8-2.4); TOTAL BILIRUBIN 0.7 mg/dL (0.2-1.0); TOTAL PROTEIN 7.3 g/dL (6.4-8.2)
[2019-06-10 07:53] LABS: CALCIUM 9.1 mg/dL (8.5-10.1)
--- NOTE | 2019-06-10 08:16 | RAD ---
EXAM: CHEST ONE VIEW. HISTORY: Atrial fibrillation. COMPARISON: 06/06/2019. FINDINGS: A frontal view of the chest is obtained. Hyperinflation suggests chronic obstructive pulmonary disease. There are no confluent infiltrates. There is no pneumothorax or pleural effusion. The heart is not enlarged. There are atherosclerotic calcifications of the aorta. There are multiple chronic right rib fractures. IMPRESSION: 1. Correlate for chronic obstructive pulmonary disease. No confluent infiltrates. Electronically signed by: Gaurav Diallo MD (06/10/2019 8:13 AM) [facility]
[2019-06-10 10:30] VITALS: BP 113/69
--- NOTE | 2019-06-10 10:39 | PDOC1 ---
History and Physical Date of Admission Date of Admission DATE: 06/10/19 TIME: 10:38 Identification/Chief Complaint Chief Complaint SEEN IN ER 89 YR OLF FEMALE HX coronary artery disease, atrial fibrillation who presents via EMS with complaint of rapid heartbeat. , rash on face and trunk, reaction to po hydralazine likely Past Medical History Past Medical History Past Medical History Past Medical History: A-Fib, CAD, Hypertension Additional Past Medical Histor: OVERACTIVE BLADDER Past Surgical History: Cholecystectomy, Hysterectomy, Knee Replacement Additional Past Surgical Histo: hernia,back sx,eye sx 3 Alcohol Use: None Drug Use: None NONSMOKER FHX HTN Cardiovascular: AFIB, CHF, HTN, Hyperlipidemia Psych: Anxiety Musculoskeletal: Osteoarthritis Past Surgical History Past Surgical History: Cholecystectomy, Total knee replacement, Hysterectomy, Other Family History Family History: Hypertension Social History Smoke: No ALCOHOL: none Drugs: None Current Problem List Problem List Problems Medical Problems: (1) Allergic reaction caused by a drug Status: Acute (2) Atrial fibrillation with RVR Status: Acute (3) CHF (congestive heart failure) Status: Acute (4) Dizziness Status: Acute Current Medications Current Medications Current Medications Diltiazem HCl (Cardizem Iv Push) 20 mg 1X ONCE IVP Last administered on 06/10/19at 07:25; Start 06/10/19 at 07:00; Stop 06/10/19 at 07:08; Status DC Diltiazem HCl 125 mg/Dextrose 125 ml @ 10 mls/hr 1X ONCE IV Last administered on 06/10/19at 08:29; Start 06/10/19 at 07:00; Stop 06/10/19 at 19:29 Diphenhydramine HCl (Benadryl) 25 mg 1X ONCE IVP Last administered on 06/10/19at 08:26; Start 06/10/19 at 07:45; Stop 06/10/19 at 07:46; Status DC Active Scripts Active Hydralazine Hcl 25 Mg Tablet 25 Mg PO BID Amiodarone Hcl 200 Mg Tablet 400 Mg PO DAILY Cipro (Ciprofloxacin Hcl) 250 Mg Tablet 250 Mg PO BID 7 Days Potassium Chloride 20 Meq Tablet.er 20 Meq PO DAILY Pradaxa (Dabigatran Etexilate Mesylate) 75 Mg Capsule 75 Mg PO BID 30 Days Reported Dorzolamide Hcl 10 Ml Drops 1 Drp OU BID Bumetanide 2 Mg Tablet 1 Tab PO DAILY Flonase Allergy Relief (Fluticasone Propionate) 9.9 Ml [place].susp 2 Sprays NS BID Tylenol (Acetaminophen) 325 Mg Tablet 2 Tab PO Q6HRS PRN Alphagan P (Brimonidine Tartrate) 5 Ml Drops 5 Ml OP BID Latanoprost 2.5 Ml Drops 1 Drop EACHEYE QHS Magnesium (Magnesium Oxide) 400 Mg Capsule 250 Mg PO DAILY Coq-10 (Ubidecarenone) 100 Mg Capsule 100 Mg PO DAILY Melatonin 10 Mg Capsule 10 Mg PO HS Multivitamins (Multivitamin) 1 Each Tablet 1 Tab PO DAILY Zocor (Simvastatin) 20 Mg Tablet 1 Tab PO DAILY Allergies Allergies: Coded Allergies: desloratadine (Verified Allergy, Intermediate, 05/19/16) diclofenac (Verified Allergy, Intermediate, 05/19/16) lisinopril (Verified Allergy, Intermediate, 05/19/16) meclizine (Verified Allergy, Intermediate, 05/19/16) naphazoline (Verified Allergy, Intermediate, 05/19/16) naproxen (Verified Allergy, Intermediate, 05/19/16) ropinirole (Verified Allergy, Intermediate, 05/19/16) sertraline (Verified Allergy, Intermediate, 05/19/16) venlafaxine (Verified Allergy, Intermediate, 05/19/16) codeine (Verified Adverse Reaction, Intermediate, "doesn't work", co nstipation, 11/03/17) hydrocodone (Verified Adverse Reaction, Intermediate, "doesn't work", constipation, 06/07/19) ROS Review of System Review of Systems Review of Systems Constitutional: Denies fever or chills [] Eyes: Denies change in visual acuity, redness, or eye pain [] HENT: Denies nasal congestion or sore throat [] Respiratory: Denies cough or shortness of breath [] Cardiovascular: No additional information not addressed in HPI [] GI: Denies abdominal pain, nausea, vomiting, bloody stools or diarrhea [] : Denies dysuria or hematuria [] Musculoskeletal: Denies back pain or joint pain [] Integument: new facial rash [] Neurologic: Denies headache, focal weakness or sensory changes, reports dizziness [] Endocrine: Denies polyuria or polydipsia [] 14 PT systems were reviewed and found to be within normal limits, except as documented ENDOCRINE: No: Breast Changes, Galactorrhea, Hair Pattern Changes, Hot Flashes, Malaise/lethargy, Mood Swings, Palpitations, Polydipsia/polyuria, Skin Changes, Temperature Intolerance, Unexpected Weight Changes, Other Respiratory: No: Cough, Hemoptysis, Orthopnea, Pleuritic Pain, Shortness of breath, SOB with excertion, Sputum Changes, Stridor, Tachypnea, Wheezing, Cardiovascular: yes Palpitations Gastrointestinal: No Nausea, No Vomiting, No Abdominal Pain c/o bloating , No Diarrhea, No Constipation, No Melena, No Hematochezia, Genitourinary: No Dysuria, No Frequency, No Incontinence, No Hematuria, No Retention, No Discharge, No Urgency, No Pain, No Flank Pain, Musculoskeletal: Yes Joint Stiffness Neurological: No Behavorial Changes, No Bowel/Bladder ControlChng, No Confusion, No Dizziness, No Gait Disturbance, No Headaches, No Impaired Coord/balance, No Memory Loss, No Numbness/Tingling, No Seizures, No Speech Problems, No Tremors, No Visual Changes, No Weakness, General: YES: Fatigue PSYCHOLOGICAL ROS: No: Anxiety, Behavioral Disorder, Concentration difficultie, Decreased libido, Depression, Disorientation, Hallucinations, Hostility, Irritablity, Memory difficulties, Mood Swings, Obsessive thoughts, Physical abuse, Sexual abuse, Sleep disturbances, Suicidal ideation, Other Gastrointestinal: Yes Other (bloating); No Nausea, No Vomiting, No Abdominal Pain, No Diarrhea, No Constipation, No Melena, No Hematochezia Skin: Yes Rash Physical Exam Physical Exam General: Alert, Oriented X3, Cooperative, No acute distress/ moderate facial, periorbital rash HEENT: Mucous membr. moist/pink Lungs: Clear to auscultation, Normal air movement Heart: irregularly irregular Breasts: Not examined Abdomen: Normal bowel sounds, Soft mild distension, no tenderness Rectal Exam: not examined PELVIC: Examination not indicated Extremities: No cyanosis Neuro: Normal speech, Cranial nerves 3-12 NL Psych/Mental Status: Mental status NL, Mood NL General: Alert, Oriented X3, Cooperative HEENT: Atraumatic Breasts: Not examined Abdomen: Normal bowel sounds, Soft, No tenderness Rectal Exam: not examined Extremities: No cyanosis Skin: Other (facial rash) Neuro: Normal speech, Cranial nerves 3-12 NL Psych/Mental Status: Mental status NL, Mood NL Vitals Vitals Vital Signs Date Time Temp Pulse Resp B/P (MAP) Pulse Ox O2 Delivery O2 Flow Rate FiO2 06/10/19 08:00 140 22 98 06/10/19 07:25 152/93 06/10/19 06:49 97.7 Room Air 97.7 Labs Labs Laboratory Tests Test 06/10/19 07:16 White Blood Count 8.0 x10^3/uL (4.0-11.0) Red Blood Count 5.31 x10^6/uL (3.50-5.40) Hemoglobin 16.1 g/dL (12.0-15.5) Hematocrit 47.7 % (36.0-47.0) Mean Corpuscular Volume 90 fL (79-100) Mean Corpuscular Hemoglobin 30 pg (25-35) Mean Corpuscular Hemoglobin Concent 34 g/dL (31-37) Red Cell Distribution Width 14.0 % (11.5-14.5) Platelet Count 123 x10^3/uL (140-400) Neutrophils (%) (Auto) 77 % (31-73) Lymphocytes (%) (Auto) 15 % (24-48) Monocytes (%) (Auto) 6 % (0-9) Eosinophils (%) (Auto) 2 % (0-3) Basophils (%) (Auto) 1 % (0-3) Neutrophils # (Auto) 6.2 x10^3/uL (1.8-7.7) Lymphocytes # (Auto) 1.2 x10^3/uL (1.0-4.8) Monocytes # (Auto) 0.5 x10^3/uL (0.0-1.1) Eosinophils # (Auto) 0.1 x10^3/uL (0.0-0.7) Basophils # (Auto) 0.0 x10^3/uL (0.0-0.2) Prothrombin Time 15.1 SEC (11.7-14.0) Prothromb Time International Ratio 1.2 (0.8-1.1) Sodium Level 144 mmol/L (136-145) Potassium Level 3.8 mmol/L (3.5-5.1) Chloride Level 107 mmol/L (98-107) Carbon Dioxide Level 24 mmol/L (21-32) Anion Gap 13 (6-14) Blood Urea Nitrogen 23 mg/dL (7-20) Creatinine 1.0 mg/dL (0.6-1.0) Estimated GFR (Cockcroft-Gault) 52.3 BUN/Creatinine Ratio 23 (6-20) Glucose Level 121 mg/dL (70-99) Calcium Level 9.1 mg/dL (8.5-10.1) Magnesium Level 2.2 mg/dL (1.8-2.4) Total Bilirubin 0.7 mg/dL (0.2-1.0) Aspartate Amino Transf (AST/SGOT) 14 U/L (15-37) Alanine Aminotransferase (ALT/SGPT) 17 U/L (14-59) Alkaline Phosphatase 124 U/L (46-116) Creatine Kinase 32 U/L (26-192) Troponin I Quantitative < 0.017 ng/mL (0.000-0.055) CC-Ndj-T-Type Natriuretic Peptide 2546 pg/mL (0-449) Total Protein 7.3 g/dL (6.4-8.2) Albumin 3.5 g/dL (3.4-5.0) Albumin/Globulin Ratio 0.9 (1.0-1.7) Laboratory Tests Test 06/10/19 07:16 White Blood Count 8.0 x10^3/uL (4.0-11.0) Red Blood Count 5.31 x10^6/uL (3.50-5.40) Hemoglobin 16.1 g/dL (12.0-15.5) Hematocrit 47.7 % (36.0-47.0) Mean Corpuscular Volume 90 fL (79-100) Mean Corpuscular Hemoglobin 30 pg (25-35) Mean Corpuscular Hemoglobin Concent 34 g/dL (31-37) Red Cell Distribution Width 14.0 % (11.5-14.5) Platelet Count 123 x10^3/uL (140-400) Neutrophils (%) (Auto) 77 % (31-73) Lymphocytes (%) (Auto) 15 % (24-48) Monocytes (%) (Auto) 6 % (0-9) Eosinophils (%) (Auto) 2 % (0-3) Basophils (%) (Auto) 1 % (0-3) Neutrophils # (Auto) 6.2 x10^3/uL (1.8-7.7) Lymphocytes # (Auto) 1.2 x10^3/uL (1.0-4.8) Monocytes # (Auto) 0.5 x10^3/uL (0.0-1.1) Eosinophils # (Auto) 0.1 x10^3/uL (0.0-0.7) Basophils # (Auto) 0.0 x10^3/uL (0.0-0.2) Prothrombin Time 15.1 SEC (11.7-14.0) Prothromb Time International Ratio 1.2 (0.8-1.1) Sodium Level 144 mmol/L (136-145) Potassium Level 3.8 mmol/L (3.5-5.1) Chloride Level 107 mmol/L (98-107) Carbon Dioxide Level 24 mmol/L (21-32) Anion Gap 13 (6-14) Blood Urea Nitrogen 23 mg/dL (7-20) Creatinine 1.0 mg/dL (0.6-1.0) Estimated GFR (Cockcroft-Gault) 52.3 BUN/Creatinine Ratio 23 (6-20) Glucose Level 121 mg/dL (70-99) Calcium Level 9.1 mg/dL (8.5-10.1) Magnesium Level 2.2 mg/dL (1.8-2.4) Total Bilirubin 0.7 mg/dL (0.2-1.0) Aspartate Amino Transf (AST/SGOT) 14 U/L (15-37) Alanine Aminotransferase (ALT/SGPT) 17 U/L (14-59) Alkaline Phosphatase 124 U/L (46-116) Creatine Kinase 32 U/L (26-192) Troponin I Quantitative < 0.017 ng/mL (0.000-0.055) PT-Tir-T-Type Natriuretic Peptide 2546 pg/mL (0-449) Total Protein 7.3 g/dL (6.4-8.2) Albumin 3.5 g/dL (3.4-5.0) Albumin/Globulin Ratio 0.9 (1.0-1.7) Images Images COMPARISON: 06/06/2019. FINDINGS: A frontal view of the chest is obtained. Hyperinflation suggests chronic obstructive pulmonary disease. There are no confluent infiltrates. There is no pneumothorax or pleural effusion. The heart is not enlarged. There are atherosclerotic calcifications of the aorta. There are multiple chronic right rib fractures. IMPRESSION: 1. Correlate for chronic obstructive pulmonary disease. No confluent infiltrates. Electronically signed by: Gaurav Diallo MD (06/10/2019 8:13 AM) [facility] DICTATED and SIGNED BY: KATHERYN DIALLO MD DATE: 06/10/19812 VTE Prophylaxis Ordered VTE Prophylaxis Devices: Yes VTE Pharmacological Prophylaxi: Yes Assessment/Plan Assessment/Plan IMPRESSION ADVERSE REACTION TO HYDRALAZINE,, mild angioedema// failed outpt management Atrial fibrillation with rapid ventricular response. Chronic interstitial changes ON CXR hypertension, hyperlipidemia, osteoarthrosis, status post cholecystectomy, cataract removal, hernia repair, total knee hysterectomy. Dizziness CHF (congestive heart failure) obesity acute hypoxic resp failure ADMITTED icu bed CONSULT CARDIOLOGY CARDIZEM DRIP PROTOCOL prn HOME MEDS d/c hydralazine DVT PROPHYLAXIS iv steroid taper tsh 02 support miralax 17 gm po daily 34 MIN PT EXAM cc time, CHART REVIEW, > 50% OF TIME SPENT WITH EXAM, CHART REVIEW, PT CARE COORDINATION DEBBI SNYDER MD Jun 10, 2019 10:39
[2019-06-10] MEDS: IV NORMAL SALINE 1000ML BAG 1,000 ML IV SCH (10:50)
[2019-06-10] MEDS ORDERED: 0.9 % SODIUM CHLORIDE 10 ML DISP.SYRIN. IV PRN ×2 (11:00→12:15)
[2019-06-10] MEDS ORDERED: ONDANSETRON PF 4 MG/2 ML VIAL. IV PRN (11:00)
[2019-06-10] MEDS ORDERED: guaiFENesin ORAL 200 MG/10 ML LIQUID. PO PRN (11:00)
[2019-06-10] MEDS ORDERED: ACETAMINOPHEN 325 MG TABLET. PO PRN ×2 (11:00)
[2019-06-10] MEDS ORDERED: DOCUSATE SODIUM 100 MG CAPSULE. PO PRN (11:00)
[2019-06-10] MEDS ORDERED: LORazepam 0.5 MG TABLET PO PRN (11:00)
--- NOTE | 2019-06-10 11:25 | PDOC ---
BETZAIDA MARRERO KAITLYN 06/10/19 1125: CARDIO Progress Notes Date and Time Date of Service 08/10/18 Time of Evaluation 1120 Subjective Subjective: No Chest Pain, No shortness of breath, No Palpitations, Other (c/o feeling bloated ) Vitals Vitals Vital Signs Date Time Temp Pulse Resp B/P (MAP) Pulse Ox O2 Delivery O2 Flow Rate FiO2 06/10/19 08:00 140 22 98 06/10/19 07:25 152/93 06/10/19 06:49 97.7 Room Air 97.7 Weight Weight [ ] Laboratory Labs Laboratory Tests Test 06/10/19 07:16 White Blood Count 8.0 x10^3/uL (4.0-11.0) Red Blood Count 5.31 x10^6/uL (3.50-5.40) Hemoglobin 16.1 g/dL (12.0-15.5) Hematocrit 47.7 % (36.0-47.0) Mean Corpuscular Volume 90 fL (79-100) Mean Corpuscular Hemoglobin 30 pg (25-35) Mean Corpuscular Hemoglobin Concent 34 g/dL (31-37) Red Cell Distribution Width 14.0 % (11.5-14.5) Platelet Count 123 x10^3/uL (140-400) Neutrophils (%) (Auto) 77 % (31-73) Lymphocytes (%) (Auto) 15 % (24-48) Monocytes (%) (Auto) 6 % (0-9) Eosinophils (%) (Auto) 2 % (0-3) Basophils (%) (Auto) 1 % (0-3) Neutrophils # (Auto) 6.2 x10^3/uL (1.8-7.7) Lymphocytes # (Auto) 1.2 x10^3/uL (1.0-4.8) Monocytes # (Auto) 0.5 x10^3/uL (0.0-1.1) Eosinophils # (Auto) 0.1 x10^3/uL (0.0-0.7) Basophils # (Auto) 0.0 x10^3/uL (0.0-0.2) Prothrombin Time 15.1 SEC (11.7-14.0) Prothromb Time International Ratio 1.2 (0.8-1.1) Sodium Level 144 mmol/L (136-145) Potassium Level 3.8 mmol/L (3.5-5.1) Chloride Level 107 mmol/L (98-107) Carbon Dioxide Level 24 mmol/L (21-32) Anion Gap 13 (6-14) Blood Urea Nitrogen 23 mg/dL (7-20) Creatinine 1.0 mg/dL (0.6-1.0) Estimated GFR (Cockcroft-Gault) 52.3 BUN/Creatinine Ratio 23 (6-20) Glucose Level 121 mg/dL (70-99) Calcium Level 9.1 mg/dL (8.5-10.1) Magnesium Level 2.2 mg/dL (1.8-2.4) Total Bilirubin 0.7 mg/dL (0.2-1.0) Aspartate Amino Transf (AST/SGOT) 14 U/L (15-37) Alanine Aminotransferase (ALT/SGPT) 17 U/L (14-59) Alkaline Phosphatase 124 U/L (46-116) Creatine Kinase 32 U/L (26-192) Troponin I Quantitative < 0.017 ng/mL (0.000-0.055) TY-Nmb-A-Type Natriuretic Peptide 2546 pg/mL (0-449) Total Protein 7.3 g/dL (6.4-8.2) Albumin 3.5 g/dL (3.4-5.0) Albumin/Globulin Ratio 0.9 (1.0-1.7) Physical Exam HEENT: Neck Supple W Full Motion Chest: Symmetric LUNGS: Clear to Auscultation Heart: S1S2, irregularly irregular (AFIB rate 66) Abdomen: Soft N/T Extremities: Other (trace bilateral LE edema ) Neurology: alert, oriented, follow commands Assessment Assessment Continuum of care Please see consult from 06/06/19 for further details Consult reason; AFIB with RVR Referring physician; Dr. Barker HPI: This is an 89 yo female who presented secondary to palpitations and dizziness. Was seen by our service last week due to AFIB with RVR. Aggressive management with cardioversion versus conservative measures were discussed. Patient opted for medical management and was started on Amiodarone therapy for rhythm control. Is on Pradaxa for stroke prophylaxis, which she has been on for over a year. Was discharge home yesterday. Returned secondary to palpitation, dizziness. Patient got up in the middle of the night to go to the bathroom and was extremely dizzy, lightheaded. Could tell that her heart was beating fast. Thought maybe she was having a reaction to the new medication hydralazine as she felt flush in the face. Decided to come to the ED for further evaluation and treatment. Was noted in AFIB wtih RVR. Was started on Cardizem gtt. Rate now well controlled and is feeling well. 1. PAFIB with RVR; rate now well controlled on Cardizem 2. Chronic diastolic CHF; clinically compensated 3. Accelerated Hypertension; controlled 4. Hyperlipidemia; statin Recommendations Resume Amiodarone, metoprolol. Titrate off Cardizem Pradaza for stroke prevention Continue hydralazine; will monitor for any adverse reaction Given recurrent episode of AFIB wtih RVR, patient would like proceed with CV. R/b/a discussed with patient and son and they are agreeable. Resume diuretic therapy following CV Outpatient echo MARCO ANTONIO SOUSA MD 06/10/19 1626: CARDIO Progress Notes Plan Plan Pt. seen and examined. Agree with above DROP FORGER note. Successful CVN. Continue anticoagulation and current meds. May need to decrease cardizem dose based on her HR in a.m. Thanks BETZAIDA MARRERO APRN Jun 10, 2019 11:25 MARCO ANTONIO SOUSA MD Jun 10, 2019 16:26
[2019-06-10] MEDS: POLYETHYLENE GLYCOL 3350 17 GM PACKET. PO SCH (11:30)
[2019-06-10] MEDS: BUMETANIDE 1 MG TABLET. PO SCH (11:30)
[2019-06-10] MEDS ORDERED: METO25TA4 PO (12:11)
[2019-06-10] MEDS: hydrALAZINE 25 MG TABLET PO SCH ×2 (12:30→21:00)
[2019-06-10] MEDS ORDERED: PROPOFOL 20 ML IV ONE (12:32)
[2019-06-10] MEDS ORDERED: LIDOCAINE 2% PF 5 ML VIAL. ONE (12:32)
[2019-06-10] MEDS: DABIGATRAN ETEXILATE 75 MG CAPSULE. PO SCH ×2 (12:43→21:53)
[2019-06-10] MEDS: METOPROLOL TART IMMED RELEASE 25 MG TABLET. PO SCH ×2 (12:43→21:52)
[2019-06-10] MEDS: AMIODARONE HCL 200 MG TABLET. PO SCH (12:43)
[2019-06-10] MEDS ORDERED: METOPROLOL TART IMMED RELEASE 25 MG TABLET. PO SCH (13:00)
[2019-06-10] MEDS ORDERED: ePHEDrine PF IN SALINE 50 MG/10 ML SYRINGE. IV ONE (14:00)
--- NOTE | 2019-06-10 14:20 | EKG ---
[facility] [address] [place] [address] Test Date: 2019-06-10 Test Time: 14:16:36 Pat Name: QUITA FRANCO Department: Room: [facility] 1 Gender: F Corporate Strategy Intern: MICHAEL : 1930 Requested By: MARCO ANTONIO SOUSA Order Number: [id number] Reading MD: Alex Roque Measurements Intervals [place] Rate: 59 P: 16 CT: 174 QRS: 12 QRSD: 76 T: 27 QT: 440 QTc: 436 Interpretive Statements SINUS RHYTHM NORMAL ECG Electronically Signed On 06-14-2019 14:46:55 CLOAK ROOM ATTENDANT by Alex Roque
[2019-06-10 14:59] VITALS: BP 134/61
[2019-06-10] MEDS: MAGNESIUM OXIDE 400 MG TABLET PO SCH (15:02)
[2019-06-10] MEDS: POTASSIUM CHLORIDE 20 MEQ TABLET.ER. PO SCH (15:02)
[2019-06-10] MEDS: methylPREDNISolone SOD SUCC PF 40 MG/ML VIAL. IV SCH ×2 (15:02→21:53)
[2019-06-10] MEDS: MULTIVITAMIN with MINERAL TABLET. PO SCH (15:03)
[2019-06-10] MEDS: BRIMONIDINE 0.2% OPHTH SOLUTION 5ML BOTTLE. OU SCH ×2 (15:04→21:51)
[2019-06-10] MEDS: FLUTICASONE 50MCG/NASAL SPRAY 16GM BOTTLE. NS SCH ×2 (15:05→21:50)
[2019-06-10] MEDS: DORZOLAMIDE 2% OPHTH SOLUTION 10ML BOTTLE. OU SCH ×2 (15:05→21:50)
[2019-06-10 16:56] LABS: BILIRUBIN,URINE NEGATIVE (NEG); CLARITY,URINE CLEAR; COLOR,URINE YELLOW; NITRITE,URINE POSITIVE (NEG); PROTEIN,URINE 30 mg/dL (NEG-TRACE)
[2019-06-10 17:05] LABS: BACTERIA,URINE MANY /HPF (0-FEW); RBC,URINE 0 /HPF (0-2); SQUAMOUS EPITHELIAL CELL,UR MOD /LPF; WBC,URINE OCC /HPF (0-4)
[2019-06-10 18:59] VITALS: BP 134/57
[2019-06-10] MEDS ORDERED: SIMVASTATIN 20 MG TABLET PO SCH (21:00)
[2019-06-10] MEDS ORDERED: CIPROFLOXACIN HCL 250 MG TABLET. PO SCH (21:00)
[2019-06-10] MEDS ORDERED: NON FORMULARY ITEM (Melatonin 10 MG) PO SCH (21:00)
[2019-06-10] MEDS ORDERED: LATANOPROST 0.005% OPHTH SOLUTION 2.5ML BOTTLE. OU SCH (21:00)
[2019-06-10] MEDS ORDERED: FAMOTIDINE 20 MG/2 ML VIAL IVP SCH (21:00)
[2019-06-10] MEDS: AZTREONAM IV Push 1 GM VIAL. IVP SCH (21:49)
[2019-06-10 22:11] VITALS: BP 141/63
[2019-06-10] MEDS ORDERED: ZOLPIDEM 5 MG TABLET. PO PRN (22:30)
[2019-06-11 03:37] VITALS: BP 117/60
[2019-06-11 05:29] LABS: BASO % 0 % (0-3); EOS % 0 % (0-3); HEMOGLOBIN 13.8 g/dL (12.0-15.5); LYMPH # 0.5 x10^3/uL (1.0-4.8); LYMPH % 9 % (24-48); MEAN CORPUSCULAR HEMOGLOBIN 31 pg (25-35); MEAN CORPUSCULAR HGB CONC 34 g/dL (31-37); MEAN CORPUSCULAR VOLUME 91 fL (79-100); MONO % 1 % (0-9); NEUT # 4.5 x10^3/uL (1.8-7.7); NEUT % 90 % (31-73); PLATELET COUNT 114 x10^3/uL (140-400); RED CELL DISTRIBUTION WIDTH 14.1 % (11.5-14.5)
[2019-06-11] MEDS: AZTREONAM IV Push 1 GM VIAL. IVP SCH (05:33)
[2019-06-11] MEDS: methylPREDNISolone SOD SUCC PF 40 MG/ML VIAL. IV SCH (05:33)
[2019-06-11] MEDS: IV NORMAL SALINE 1000ML BAG 1,000 ML IV SCH (05:34)
[2019-06-11 05:58] LABS: ALBUMIN 3.1 g/dL (3.4-5.0); ALBUMIN/GLOBULIN RATIO 0.9 (1.0-1.7); CALCIUM 9.2 mg/dL (8.5-10.1); GFR 52.3; POTASSIUM 4.4 mmol/L (3.5-5.1); TOTAL BILIRUBIN 0.4 mg/dL (0.2-1.0); TOTAL PROTEIN 6.5 g/dL (6.4-8.2)
[2019-06-11 07:00] VITALS: BP 127/70
[2019-06-11] MEDS: hydrALAZINE 25 MG TABLET PO SCH (08:31)
[2019-06-11] MEDS: MULTIVITAMIN with MINERAL TABLET. PO SCH (08:33)
[2019-06-11] MEDS: POTASSIUM CHLORIDE 20 MEQ TABLET.ER. PO SCH (08:33)
[2019-06-11] MEDS: DABIGATRAN ETEXILATE 75 MG CAPSULE. PO SCH (08:33)
[2019-06-11] MEDS: MAGNESIUM OXIDE 400 MG TABLET PO SCH (08:33)
[2019-06-11] MEDS: METOPROLOL TART IMMED RELEASE 25 MG TABLET. PO SCH (08:34)
[2019-06-11] MEDS: AMIODARONE HCL 200 MG TABLET. PO SCH (08:34)
[2019-06-11] MEDS: BUMETANIDE 1 MG TABLET. PO SCH (08:34)
[2019-06-11] MEDS: BRIMONIDINE 0.2% OPHTH SOLUTION 5ML BOTTLE. OU SCH (08:35)
[2019-06-11] MEDS: DORZOLAMIDE 2% OPHTH SOLUTION 10ML BOTTLE. OU SCH (08:35)
[2019-06-11] MEDS: FLUTICASONE 50MCG/NASAL SPRAY 16GM BOTTLE. NS SCH (08:35)
[2019-06-11] MEDS: POLYETHYLENE GLYCOL 3350 17 GM PACKET. PO SCH (08:41)
[2019-06-11] MEDS ORDERED: NON FORMULARY ITEM (Ubidecarenone (Coq-10) 100 MG) PO SCH (09:00)
[2019-06-11] MEDS ORDERED: CEFD300C PO (09:11)
[2019-06-11] MEDS ORDERED: CEFDINIR 300 MG CAPSULE PO SCH (09:30)
--- NOTE | 2019-06-11 10:49 | NUR ---
SS following for discharge planning. SS reviewed pt chart. Pt is from home and is currently on room air. Pt was recently discharged to home with [facility], ; fax [phone]. PT/OT ordered. SS will continue to follow for discharge planning.
[2019-06-11 11:00] VITALS: BP 155/70
--- NOTE | 2019-06-11 11:15 | PDOC3 ---
Discharge Summary Visit Information Date of Admission: Jun 10, 2019 Date of Discharge: Jun 11, 2019 Admitting Diagnosis Comment: new onset a fib s.p successful cardioversion 06/10/19 INCidental UTI Multiple allergies HTN controlled Intolerance to hydralazine Final Diagnosis Problems Medical Problems: (1) Allergic reaction caused by a drug Status: Acute (2) Atrial fibrillation with RVR Status: Acute (3) CHF (congestive heart failure) Status: Acute (4) Dizziness Status: Acute Brief Hospital Course Allergies Allergies Coded Allergies Type Severity Reaction Last Updated Verified desloratadine Allergy Intermediate 05/19/16 Yes diclofenac Allergy Intermediate 05/19/16 Yes lisinopril Allergy Intermediate 05/19/16 Yes meclizine Allergy Intermediate 05/19/16 Yes naphazoline Allergy Intermediate 05/19/16 Yes naproxen Allergy Intermediate 05/19/16 Yes ropinirole Allergy Intermediate 05/19/16 Yes sertraline Allergy Intermediate 05/19/16 Yes venlafaxine Allergy Intermediate 05/19/16 Yes codeine Adverse Reaction Intermediate "doesn't work", constipation 11/03/17 Yes hydrocodone Adverse Reaction Intermediate "doesn't work", constipation 06/07 Yes Vital Signs Vital Signs Date Time Temp Pulse Resp B/P (MAP) Pulse Ox O2 Delivery O2 Flow Rate FiO2 06/11/19 08:34 86 127/70 06/11/19 08:00 Room Air 06/11/19 07:00 98.2 20 96 98.2 Lab Results Laboratory Tests Test 06/10/19 07:16 06/10/19 10:50 06/10/19 16:00 06/10/19 16:32 White Blood Count 8.0 x10^3/uL (4.0-11.0) Red Blood Count 5.31 x10^6/uL (3.50-5.40) Hemoglobin 16.1 g/dL (12.0-15.5) Hematocrit 47.7 % (36.0-47.0) Mean Corpuscular Volume 90 fL (79-100) Mean Corpuscular Hemoglobin 30 pg (25-35) Mean Corpuscular Hemoglobin Concent 34 g/dL (31-37) Red Cell Distribution Width 14.0 % (11.5-14.5) Platelet Count 123 x10^3/uL (140-400) Neutrophils (%) (Auto) 77 % (31-73) Lymphocytes (%) (Auto) 15 % (24-48) Monocytes (%) (Auto) 6 % (0-9) Eosinophils (%) (Auto) 2 % (0-3) Basophils (%) (Auto) 1 % (0-3) Neutrophils # (Auto) 6.2 x10^3/uL (1.8-7.7) Lymphocytes # (Auto) 1.2 x10^3/uL (1.0-4.8) Monocytes # (Auto) 0.5 x10^3/uL (0.0-1.1) Eosinophils # (Auto) 0.1 x10^3/uL (0.0-0.7) Basophils # (Auto) 0.0 x10^3/uL (0.0-0.2) Prothrombin Time 15.1 SEC (11.7-14.0) Prothromb Time International Ratio 1.2 (0.8-1.1) Sodium Level 144 mmol/L (136-145) Potassium Level 3.8 mmol/L (3.5-5.1) Chloride Level 107 mmol/L (98-107) Carbon Dioxide Level 24 mmol/L (21-32) Anion Gap 13 (6-14) Blood Urea Nitrogen 23 mg/dL (7-20) Creatinine 1.0 mg/dL (0.6-1.0) Estimated GFR (Cockcroft-Gault) 52.3 BUN/Creatinine Ratio 23 (6-20) Glucose Level 121 mg/dL (70-99) Calcium Level 9.1 mg/dL (8.5-10.1) Magnesium Level 2.2 mg/dL (1.8-2.4) Total Bilirubin 0.7 mg/dL (0.2-1.0) Aspartate Amino Transf (AST/SGOT) 14 U/L (15-37) Alanine Aminotransferase (ALT/SGPT) 17 U/L (14-59) Alkaline Phosphatase 124 U/L (46-116) Creatine Kinase 32 U/L (26-192) Troponin I Quantitative < 0.017 ng/mL (0.000-0.055) < 0.017 ng/mL (0.000-0.055) < 0.017 ng/mL (0.000-0.055) GY-Mnr-U-Type Natriuretic Peptide 9386 pg/mL (0-449) Total Protein 7.3 g/dL (6.4-8.2) Albumin 3.5 g/dL (3.4-5.0) Albumin/Globulin Ratio 0.9 (1.0-1.7) Thyroid Stimulating Hormone (TSH) 3.441 uIU/mL (0.358-3.74) Urine Collection Type Unknown Urine Color Yellow Urine Clarity Clear Urine pH 6.0 Urine Specific [place] 1.020 Urine Protein 30 mg/dL (NEG-TRACE) Urine Glucose (UA) Negative mg/dL (NEG) Urine Ketones (Stick) Negative mg/dL (NEG) Urine Blood Negative (NEG) Urine Nitrite Positive (NEG) Urine Bilirubin Negative (NEG) Urine Urobilinogen Dipstick 1.0 mg/dL (0.2 mg/dL) Urine Leukocyte Esterase Negative (NEG) Urine RBC 0 /HPF (0-2) Urine WBC Occ /HPF (0-4) Urine Squamous Epithelial Cells Mod /LPF Urine Bacteria Many /HPF (0-FEW) Urine Mucus Mod /LPF Test 06/11/19 04:30 White Blood Count 5.0 x10^3/uL (4.0-11.0) Red Blood Count 4.50 x10^6/uL (3.50-5.40) Hemoglobin 13.8 g/dL (12.0-15.5) Hematocrit 41.0 % (36.0-47.0) Mean Corpuscular Volume 91 fL (79-100) Mean Corpuscular Hemoglobin 31 pg (25-35) Mean Corpuscular Hemoglobin Concent 34 g/dL (31-37) Red Cell Distribution Width 14.1 % (11.5-14.5) Platelet Count 114 x10^3/uL (140-400) Neutrophils (%) (Auto) 90 % (31-73) Lymphocytes (%) (Auto) 9 % (24-48) Monocytes (%) (Auto) 1 % (0-9) Eosinophils (%) (Auto) 0 % (0-3) Basophils (%) (Auto) 0 % (0-3) Neutrophils # (Auto) 4.5 x10^3/uL (1.8-7.7) Lymphocytes # (Auto) 0.5 x10^3/uL (1.0-4.8) Monocytes # (Auto) 0.0 x10^3/uL (0.0-1.1) Eosinophils # (Auto) 0.0 x10^3/uL (0.0-0.7) Basophils # (Auto) 0.0 x10^3/uL (0.0-0.2) Sodium Level 142 mmol/L (136-145) Potassium Level 4.4 mmol/L (3.5-5.1) Chloride Level 108 mmol/L (98-107) Carbon Dioxide Level 23 mmol/L (21-32) Anion Gap 11 (6-14) Blood Urea Nitrogen 24 mg/dL (7-20) Creatinine 1.0 mg/dL (0.6-1.0) Estimated GFR (Cockcroft-Gault) 52.3 BUN/Creatinine Ratio 24 (6-20) Glucose Level 194 mg/dL (70-99) Calcium Level 9.2 mg/dL (8.5-10.1) Total Bilirubin 0.4 mg/dL (0.2-1.0) Aspartate Amino Transf (AST/SGOT) 13 U/L (15-37) Alanine Aminotransferase (ALT/SGPT) 13 U/L (14-59) Alkaline Phosphatase 109 U/L (46-116) Total Protein 6.5 g/dL (6.4-8.2) Albumin 3.1 g/dL (3.4-5.0) Albumin/Globulin Ratio 0.9 (1.0-1.7) Laboratory Tests Test 06/10/19 16:00 06/10/19 16:32 06/11/19 04:30 Troponin I Quantitative < 0.017 ng/mL (0.000-0.055) Urine Collection Type Unknown Urine Color Yellow Urine Clarity Clear Urine pH 6.0 Urine Specific [place] 1.020 Urine Protein 30 mg/dL (NEG-TRACE) Urine Glucose (UA) Negative mg/dL (NEG) Urine Ketones (Stick) Negative mg/dL (NEG) Urine Blood Negative (NEG) Urine Nitrite Positive (NEG) Urine Bilirubin Negative (NEG) Urine Urobilinogen Dipstick 1.0 mg/dL (0.2 mg/dL) Urine Leukocyte Esterase Negative (NEG) Urine RBC 0 /HPF (0-2) Urine WBC Occ /HPF (0-4) Urine Squamous Epithelial Cells Mod /LPF Urine Bacteria Many /HPF (0-FEW) Urine Mucus Mod /LPF White Blood Count 5.0 x10^3/uL (4.0-11.0) Red Blood Count 4.50 x10^6/uL (3.50-5.40) Hemoglobin 13.8 g/dL (12.0-15.5) Hematocrit 41.0 % (36.0-47.0) Mean Corpuscular Volume 91 fL (79-100) Mean Corpuscular Hemoglobin 31 pg (25-35) Mean Corpuscular Hemoglobin Concent 34 g/dL (31-37) Red Cell Distribution Width 14.1 % (11.5-14.5) Platelet Count 114 x10^3/uL (140-400) Neutrophils (%) (Auto) 90 % (31-73) Lymphocytes (%) (Auto) 9 % (24-48) Monocytes (%) (Auto) 1 % (0-9) Eosinophils (%) (Auto) 0 % (0-3) Basophils (%) (Auto) 0 % (0-3) Neutrophils # (Auto) 4.5 x10^3/uL (1.8-7.7) Lymphocytes # (Auto) 0.5 x10^3/uL (1.0-4.8) Monocytes # (Auto) 0.0 x10^3/uL (0.0-1.1) Eosinophils # (Auto) 0.0 x10^3/uL (0.0-0.7) Basophils # (Auto) 0.0 x10^3/uL (0.0-0.2) Sodium Level 142 mmol/L (136-145) Potassium Level 4.4 mmol/L (3.5-5.1) Chloride Level 108 mmol/L (98-107) Carbon Dioxide Level 23 mmol/L (21-32) Anion Gap 11 (6-14) Blood Urea Nitrogen 24 mg/dL (7-20) Creatinine 1.0 mg/dL (0.6-1.0) Estimated GFR (Cockcroft-Gault) 52.3 BUN/Creatinine Ratio 24 (6-20) Glucose Level 194 mg/dL (70-99) Calcium Level 9.2 mg/dL (8.5-10.1) Total Bilirubin 0.4 mg/dL (0.2-1.0) Aspartate Amino Transf (AST/SGOT) 13 U/L (15-37) Alanine Aminotransferase (ALT/SGPT) 13 U/L (14-59) Alkaline Phosphatase 109 U/L (46-116) Total Protein 6.5 g/dL (6.4-8.2) Albumin 3.1 g/dL (3.4-5.0) Albumin/Globulin Ratio 0.9 (1.0-1.7) Brief Hospital Course Ms. Ogden is a 89 old white female who came from home and had a fib RVR successfully cardioverted on 06.10 and now NSR, Incidental uti, tania tolerate cipro, after heavy counselling comfortable for cefdinir, Was on keflex QID Before,. SOme intolarence to home hydralazine, but BP ok 140s, Tania get norvasc bec of leg swelling Asks if she has copd bec cxr reads so LOTS OF EDUCATION AND COUNSELING ON DC BEC SHE HAD A LOT of Qs dc 40 mins at least consults; cards PRoc: electrical Cardioversion Discharge Information Condition at Discharge: Improved, Stable Follow Up: Weeks (ff up cards as instructed usually 4 weeks) Disposition/Orders: D/C to Home w/ HH Scheduled Amiodarone Hcl (Amiodarone Hcl) 200 Mg Tablet, 400 MG PO DAILY for a fib, #60 Prescribed by: RUMA BLEVINS on 06/09/19 0857 Last Action: Continued on 06/10/19 105 by DEBBI SNYDER MD Brimonidine Tartrate (Alphagan P) 5 Ml Drops, 5 ML OP BID, (Reported) Entered as Reported by: VICTORIA FRAZIER on 07/26/172015 Last Action: Converted on 06/10/19 105 by DEBBI SNYDER MD Bumetanide (Bumetanide) 2 Mg Tablet, 1 TAB PO DAILY, #30 Ref 5 (Reported) Entered as Reported by: IZZY DAVID on 04/01/18901 Last Action: Converted on 06/10/19 105 by DEBBI SNYDER MD Cefdinir (Cefdinir) 300 Mg Capsule, 1 CAP PO BID for uti, #14 Prescribed by: RUMA BLEVINS on 06/11/19 0911 Dabigatran Etexilate Mesylate (Pradaxa) 75 Mg Capsule, 75 MG PO BID for afib for 30 Days, #60 Prescribed by: ROXANA PRESCOTT MD on 06/16/18 1123 Last Action: Continued on 06/10/19 105 by DEBBI SNYDER MD Dorzolamide Hcl (Dorzolamide Hcl) 10 Ml Drops, 1 DRP OU BID for glaucoma, (Reported) Entered as Reported by: LINDEN KIMBLE on 06/12/182002 Last Action: Continued on 06/10/19 105 by DEBBI SNYDER MD Fluticasone Propionate (Flonase Allergy Relief) 9.9 Ml [place].susp, 2 SPRAYS NS BID, (Reported) Entered as Reported by: GLORIA BLANCHARD on 07/27/17 0821 Last Action: Converted on 06/10/191049 by DEBBI SNYDER MD Latanoprost (Latanoprost) 2.5 Ml Drops, 1 DROP EACHEYE QHS, #7.5 Ref 3 (Reported) Entered as Reported by: VICTORIA FRAZIER on 07/26/172015 Last Action: Continued on 06/10/19 105 by DEBBI SNYDER MD Magnesium Oxide (Magnesium) 400 Mg Capsule, 250 MG PO DAILY, (Reported) Entered as Reported by: VICTORIA FRAZIER on 07/26/172015 Last Action: Converted on 06/10/191049 by DEBBI SNYDER MD Melatonin (Melatonin) 10 Mg Capsule, 10 MG PO HS, (Reported) Entered as Reported by: VICTORIA FRAZIER on 07/26/172015 Last Action: Converted on 06/10/191049 by DEBBI SNYDER MD Metoprolol Tartrate (Metoprolol Tartrate) 25 Mg Tablet, 25 MG PO BID for FOR HYPERTENSION, #60 Ref 0 (Reported) Entered as Reported by: BRIGIDO SABILLON on 06/10/19 1211 Last Taken: Unknown Dose on Unknown Date & Time Last Action: Continued on 06/10/191211 by BRIGIDO SABILLON Multivitamin (Multivitamins) 1 Each Tablet, 1 TAB PO DAILY, #90 Ref 3 (Reported) Entered as Reported by: VICTORIA FRAZIER on 07/26/172015 Last Action: Converted on 06/10/191049 by DEBBI SNYDER MD Potassium Chloride (Potassium Chloride) 20 Meq Tablet.er, 20 MEQ PO DAILY for l ow K, on bumex, #20 Prescribed by: RUMA BLEVINS on 02/16/19 1042 Last Action: Converted on 06/10/191049 by DEBBI SNYDER MD Simvastatin (Zocor) 20 Mg Tablet, 1 TAB PO DAILY, #90 Ref 1 (Reported) Entered as Reported by: VICTORIA FRAZIER on 07/26/172015 Last Action: Continued on 06/10/19 105 by DEBBI SNYDER MD Ubidecarenone (Coq-10) 100 Mg Capsule, 100 MG PO DAILY, (Reported) Entered as Reported by: VICTORIA FRAZIER on 07/26/172015 Last Action: Converted on 06/10/191049 by DEBBI SNYDER MD Scheduled PRN Acetaminophen (Tylenol) 325 Mg Tablet, 2 TAB PO Q6HRS PRN for MILD PAIN, #60 Ref 2 (Reported) Entered as Reported by: Sarah Hall on 07/26/172036 Last Action: Continued on 06/10/191049 by DEBBI SNYDER MD Discontinued Medications Amlodipine Besylate (Amlodipine Besylate) 5 Mg Tablet, 5 MG PO DAILY for htn for 30 Days, #30 Prescribed by: ROXANA PRESCOTT MD on 06/16/18 1123 Ciprofloxacin Hcl (Cipro) 250 Mg Tablet, 250 MG PO BID for uti for 7 Days Prescribed by: RUMA BLEVINS on 02/16/19 115 Last Action: Continued on 06/10/19 105 by DEBBI SNYDER MD Clonidine Hcl (Catapres) 0.1 Mg Tablet, 0.1 MG PO BID, #30 Prescribed by: AMBER SAUCEDA DO on 07/19/182031 Hydralazine Hcl (Hydralazine Hcl) 25 Mg Tablet, 25 MG PO BID for htn, #60 Prescribed by: RUMA BLEVINS on 06/09/19 0857 Last Action: HELD on 06/10/191049 by MD FELICITY BAHENA CHERRIE Y MD Jun 11, 2019 11:15
[2019-06-11] MEDS ORDERED: AMIO200T4 PO (11:51)
[2019-06-11] MEDS ORDERED: AMIO400T5 PO (11:51)
--- NOTE | 2019-06-11 12:00 | SNU/HH DC ---
DISCHARGE WITH HOME HEALTH DISCHARGE INFORMATION: Discharge Date: Jun 11, 2019 Final Diagnosis: Problems Medical Problems: (1) Allergic reaction caused by a drug Status: Acute (2) Atrial fibrillation with RVR Status: Acute (3) CHF (congestive heart failure) Status: Acute (4) Dizziness Status: Acute Condition on Discharge: Stable CODE STATUS: Code Status: Full HOME HEALTH: Face to Face: I certify this patient is under my care and that I, or a nurse practitioner or physician's assistant director of residence life working with me, had a face to face encounter that meets the physician face to face encounter requirements with this patient on []. RN For Eval/Treatment: Yes Physical Therapy For: Evalulation/Treatment Occupational Therapy For: Evaluation/Treatment Speech Language Pathology For: Evaluation/Treatment Home Health Aide For: Self-care EXPERIMENTAL PLASTICS FABRICATOR For: Community Resources Pt Meets Homebound Status: Unsteady balance w/ amb, POST DISCHARGE ORDERS: Activity Instructions for Disc: Activity as tolerated Weight Bearing Status after Di: As tolerated DIET AFTER DISCHARGE: Cardiac CHECKS AFTER DISCHARGE: Checks after discharge: Check blood press - daily, Weigh Yourself Daily FOLLOW-UP: Follow up with: Cardiology in 4 weeks; [phone] Follow Up With: Primary physician in 1-2 weeks TREATMENT/EQUIPMENT ORDERS: Adaptive Equipment Issued: None CERTIFICATION STATEMENT: Certification Statement: Certification Statement: Based on the above finding, I certify that this patient is confined to the home and needs intermittent [facility] care, physical therapy and/or speech therapy, or continues to need occupational therapy.~ This patient is under my care, and I have initiated the establishment of the plan of care.~ This patient will be followed by myself or a community physician who will periodically review the plan of care. Home Meds Active Scripts Cefdinir (CEFDINIR) 300 Mg Capsule, 1 CAP PO BID for uti, #14 CAP Prov:RUMA BLEVINS MD 06/11/19 Potassium Chloride (POTASSIUM CHLORIDE) 20 Meq Tablet.er, 20 MEQ PO DAILY for low K, on bumex, #20 TAB.SR Prov:RUMA BLEVINS MD 02/16/19 Dabigatran Etexilate Mesylate (PRADAXA) 75 Mg Capsule, 75 MG PO BID for afib for 30 Days, #60 CAP Prov:ROXANA PRESCOTT MD 11/27/18 Reported Medications Amiodarone Hcl (AMIODARONE HCL) 200 Mg Tablet, 1 TAB PO DAILY for afib, #90 TAB 1 Refill 06/11/19 Amiodarone Hcl (AMIODARONE HCL) 400 Mg Tablet, 1 TAB PO DAILY for afib for 30 Days, #7 TAB 0 Refills 06/11/19 Metoprolol Tartrate (METOPROLOL TARTRATE) 25 Mg Tablet, 25 MG PO BID for FOR HYPERTENSION, #60 TAB 0 Refills 06/10/19 Dorzolamide Hcl (DORZOLAMIDE HCL) 10 Ml Drops, 1 DRP OU BID for glaucoma 06/12/18 Bumetanide (BUMETANIDE) 2 Mg Tablet, 1 TAB PO DAILY, #30 TAB 5 Refills 04/01/18 Fluticasone Propionate (Flonase Allergy Relief) 9.9 Ml [place].susp, 2 SPRAYS NS BID, BOTTLE 07/27/17 Acetaminophen (TYLENOL) 325 Mg Tablet, 2 TAB PO Q6HRS PRN for MILD PAIN, #60 TAB 2 Refills 07/26/17 Brimonidine Tartrate (ALPHAGAN P) 5 Ml Drops, 5 ML OP BID, DROP 07/26/17 Latanoprost (LATANOPROST) 2.5 Ml Drops, 1 DROP EACHEYE QHS, #7.5 ML 3 Refills 07/26/17 Magnesium Oxide (MAGNESIUM) 400 Mg Capsule, 250 MG PO DAILY, CAP 07/26/17 Ubidecarenone (COQ-10) 100 Mg Capsule, 100 MG PO DAILY, CAP 07/26/17 Melatonin (MELATONIN) 10 Mg Capsule, 10 MG PO HS, CAP 07/26/17 Multivitamin (MULTIVITAMINS) 1 Each Tablet, 1 TAB PO DAILY, #90 TAB 3 Refills 07/26/17 Simvastatin (ZOCOR) 20 Mg Tablet, 1 TAB PO DAILY, #90 TAB 1 Refill 07/26/17 Discontinued Scripts Hydralazine Hcl (HYDRALAZINE HCL) 25 Mg Tablet, 25 MG PO BID for htn, #60 TAB Prov:RUMA BLEVINS MD 06/09/19 Ciprofloxacin Hcl (CIPRO) 250 Mg Tablet, 250 MG PO BID for uti for 7 Days, TAB Prov:RUMA BLEVINS MD 02/16/19 Clonidine Hcl (CATAPRES) 0.1 Mg Tablet, 0.1 MG PO BID, #30 TAB Prov:AMBER SAUCEDA DO 07/19/18 Amlodipine Besylate (AMLODIPINE BESYLATE) 5 Mg Tablet, 5 MG PO DAILY for htn for 30 Days, #30 TAB Prov:ROXANA PRESCOTT MD 06/16/18 RUMA BLEVINS MD Jun 11, 2019 12:00
[2019-06-11 12:02] LABS: % BANDS 5 % (0-9); % LYMPHS 7 % (24-48); % SEGS 88 % (35-66); PLT ESTIMATE ADEQUATE (ADEQUATE)
--- NOTE | 2019-06-11 12:05 | NUR ---
Ss following up with discharge planning. Discharge orders received for home healthcare. SS phoned and faxed discharge orders and referral to [facility], ; fax [phone]. Pt's RN notified.
--- NOTE | 2019-06-11 12:14 | NUR ---
Discharge Note: QUITA FRANCO [address] Discharge instructions and discharge home medications reviewed with Patient and a copy given. All questions have been answered and understanding verbalized. Home health ordered and social work involved. Script called into [facility] pharmacy. Medications gone over with patient and son. Pt has follow up appointment with cardiology in [facility]. To follow up with new primary physician in 1 week per patient. Son and patient verbalized understanding of medicaiton dosing.
--- NOTE | 2019-06-11 12:23 | NUR ---
Pt stating she cannot find her shoes that she brought in with her. ICU contacted and they do not see any shoes that were left. Pt aware. Will continue to look for shoes. Pt is willing to DC and will call to see if shoes have been found.
--- NOTE | 2019-06-11 14:23 | PDOC4 ---
PROCEDURE Procedure Indication: [Isymptomatic afib] Consent: The patient provided verbal/written consent for this procedure. Pre-Medication: [See anesthesia records] Procedure: The patient was placed in the supine position and the chest area was exposed. The cardioversion pads were applied in the standard manner and configuration. The defibrillator was set on the [DEFIB MODE:] mode and charged to [200] joules. A synchronized charge was then delivered which resulted in [SR]. The patient tolerated the procedure well. Complications: none. [] *Late entry for 06/10/2019 MARCO ANTONIO SOUSA MD Jun 11, 2019 14:23
--- NOTE | 2019-06-11 14:57 | PDOC ---
CARDIO Progress Notes Date and Time Date of Service 06/11/2019 Time of Evaluation 1220 Subjective Subjective: No Chest Pain, No shortness of breath, No Palpitations Vitals Vitals Vital Signs Date Time Temp Pulse Resp B/P (MAP) Pulse Ox O2 Delivery O2 Flow Rate FiO2 06/11/19 11:00 97.4 79 20 155/70 (98) 96 Room Air 97.4 Weight Weight [ ] Input and Output Intake and Output Intake and Output 06/11/19 07:00 Intake Total 1080 ml Output Total 800 ml Balance 280 ml Intake Oral 1080 ml Output Urine Total 600 ml Stool Total 200 ml # Voids 6 Laboratory Labs Laboratory Tests Test 06/10/19 16:00 06/10/19 16:32 06/11/19 04:30 Troponin I Quantitative < 0.017 ng/mL (0.000-0.055) Urine Collection Type Unknown Urine Color Yellow Urine Clarity Clear Urine pH 6.0 Urine Specific [place] 1.020 Urine Protein 30 mg/dL (NEG-TRACE) Urine Glucose (UA) Negative mg/dL (NEG) Urine Ketones (Stick) Negative mg/dL (NEG) Urine Blood Negative (NEG) Urine Nitrite Positive (NEG) Urine Bilirubin Negative (NEG) Urine Urobilinogen Dipstick 1.0 mg/dL (0.2 mg/dL) Urine Leukocyte Esterase Negative (NEG) Urine RBC 0 /HPF (0-2) Urine WBC Occ /HPF (0-4) Urine Squamous Epithelial Cells Mod /LPF Urine Bacteria Many /HPF (0-FEW) Urine Mucus Mod /LPF White Blood Count 5.0 x10^3/uL (4.0-11.0) Red Blood Count 4.50 x10^6/uL (3.50-5.40) Hemoglobin 13.8 g/dL (12.0-15.5) Hematocrit 41.0 % (36.0-47.0) Mean Corpuscular Volume 91 fL (79-100) Mean Corpuscular Hemoglobin 31 pg (25-35) Mean Corpuscular Hemoglobin Concent 34 g/dL (31-37) Red Cell Distribution Width 14.1 % (11.5-14.5) Platelet Count 114 x10^3/uL (140-400) Neutrophils (%) (Auto) 90 % (31-73) Lymphocytes (%) (Auto) 9 % (24-48) Monocytes (%) (Auto) 1 % (0-9) Eosinophils (%) (Auto) 0 % (0-3) Basophils (%) (Auto) 0 % (0-3) Neutrophils # (Auto) 4.5 x10^3/uL (1.8-7.7) Lymphocytes # (Auto) 0.5 x10^3/uL (1.0-4.8) Monocytes # (Auto) 0.0 x10^3/uL (0.0-1.1) Eosinophils # (Auto) 0.0 x10^3/uL (0.0-0.7) Basophils # (Auto) 0.0 x10^3/uL (0.0-0.2) Segmented Neutrophils % 88 % (35-66) Band Neutrophils % 5 % (0-9) Lymphocytes % 7 % (24-48) Platelet Estimate Adequate (ADEQUATE) Sodium Level 142 mmol/L (136-145) Potassium Level 4.4 mmol/L (3.5-5.1) Chloride Level 108 mmol/L (98-107) Carbon Dioxide Level 23 mmol/L (21-32) Anion Gap 11 (6-14) Blood Urea Nitrogen 24 mg/dL (7-20) Creatinine 1.0 mg/dL (0.6-1.0) Estimated GFR (Cockcroft-Gault) 52.3 BUN/Creatinine Ratio 24 (6-20) Glucose Level 194 mg/dL (70-99) Calcium Level 9.2 mg/dL (8.5-10.1) Total Bilirubin 0.4 mg/dL (0.2-1.0) Aspartate Amino Transf (AST/SGOT) 13 U/L (15-37) Alanine Aminotransferase (ALT/SGPT) 13 U/L (14-59) Alkaline Phosphatase 109 U/L (46-116) Total Protein 6.5 g/dL (6.4-8.2) Albumin 3.1 g/dL (3.4-5.0) Albumin/Globulin Ratio 0.9 (1.0-1.7) Physical Exam HEENT: Neck Supple W Full Motion Chest: Symmetric LUNGS: Clear to Auscultation Heart: S1S2, RRR (SR), irregularly irregular (AFIB rate 66) Abdomen: Soft N/T Extremities: Other (trace bilateral LE edema ) Neurology: alert, oriented, follow commands Assessment Assessment 1. PAFIB with RVR: S/P CVN maintaining 2. Chronic diastolic CHF; clinically compensated 3. Accelerated Hypertension; well controlled 4. Hyperlipidemia; statin Recommendations 1. May stop hydralazine as her BP is well controlled. continue with current Bp regimen otherwise. 2. Amiodarone 400 mg daily for 1 wk then 200 mg thereafter 3. Metoprolol and Pradaxa for stroke prevention 4. Outpatient echo. Agree with home health. [facility] END USER SUPPORT SPECIALIST Jun 11, 2019 14:57
== END 2019-06-11 12:31 | disposition home health service (06) | DRG 308 ==
LOC: ER 06:49 → 1 WEST ICU 07:38 → 2 SOUTH 20:30
PROVIDERS: ADMIT Family Medicine; ATTEND Family Medicine
PROC: 5A2204Z Restoration of Cardiac Rhythm, Single (ICD-10-PCS; principal; 2019-06-10 13:30)
DX: I48.91 Unspecified atrial fibrillation (principal); J96.01 Acute respiratory failure with hypoxia; I50.32 Chronic diastolic (congestive) heart failure; N39.0 Urinary tract infection, site not specified; I25.10 Atherosclerotic heart disease of native coronary artery without angina pectoris; F41.9 Anxiety disorder, unspecified; E66.9 Obesity, unspecified; E78.5 Hyperlipidemia, unspecified; I11.0 Hypertensive heart disease with heart failure; M19.90 Unspecified osteoarthritis, unspecified site; T78.3XXA Angioneurotic edema, initial encounter; Z96.659 Presence of unspecified artificial knee joint; Z88.5 Allergy status to narcotic agent; Z88.8 Allergy status to other drugs, medicaments and biological substances; Z90.710 Acquired absence of both cervix and uterus; Z90.49 Acquired absence of other specified parts of digestive tract; Z82.49 Family history of ischemic heart disease and other diseases of the circulatory system
CPT/HCPCS: 36415; 71045; 80053; 81001; 82550; 83735; 83880; 84443; 84484; 85007; 85025; 85610; 87086; 87186; 92960; 93005; 96365; 96366; 96375; 96376; J0171; J1200; J2001; J2704; J2920; J3490; 99285-25; G0378

== ENCOUNTER 2019-06-12 11:06 | Inpatient (IN) | payer MEDICARE ==
[~2019-06-12] VITALS: Ht 162.6 cm; Wt 75.8 kg
[~2019-06-12 11:06] MED LIST changes: +AMIO400T5 PO; +CEFD300C PO; +METO25TA4 PO
--- NOTE | 2019-06-12 12:13 | PHYS DOC ---
Past Medical History Past Medical History: A-Fib, CAD, Hypertension Additional Past Medical Histor: OVERACTIVE BLADDER Past Surgical History: Cholecystectomy, Hysterectomy, Knee Replacement Additional Past Surgical Histo: hernia,back sx,eye sx 3 Alcohol Use: None Drug Use: None Adult General Chief Complaint Chief Complaint: URINARY FREQUENCY [facility] HPI Patient is an 89-year-old female who presents with complaint of generalized weakness and urinary frequency. Patient had been discharged home yesterday and reports going to the bathroom very frequently. EMS was called this morning because patient was unable to get off the toilet unassisted. Patient does live alone and she states that she feels so weak that she is not able to walk. She denies any chest pain or shortness of breath.[] Review of Systems Review of Systems Constitutional: Denies fever or chills [] Respiratory: Denies cough or shortness of breath [] Cardiovascular: No additional information not addressed in HPI [] GI: Denies abdominal pain, nausea, vomiting or diarrhea [] : Denies dysuria or hematuria. Complains of urinary frequency [] Integument: Denies rash or skin lesions [] Neurologic: Denies headache, focal weakness or sensory changes [] All other systems were reviewed and found to be within normal limits, except as documented in this note. Allergies Allergies Allergies Coded Allergies Type Severity Reaction Last Updated Verified desloratadine Allergy Intermediate 05/19/16 Yes diclofenac Allergy Intermediate 05/19/16 Yes lisinopril Allergy Intermediate 05/19/16 Yes meclizine Allergy Intermediate 05/19/16 Yes naphazoline Allergy Intermediate 05/19/16 Yes naproxen Allergy Intermediate 05/19/16 Yes ropinirole Allergy Intermediate 05/19/16 Yes sertraline Allergy Intermediate 05/19/16 Yes venlafaxine Allergy Intermediate 05/19/16 Yes codeine Adverse Reaction Intermediate "doesn't work", constipation 11/03/17 Yes hydrocodone Adverse Reaction Intermediate "doesn't work", constipation 06/07/19 Yes Physical Exam Physical Exam Constitutional: Well developed, well nourished, no acute distress, non-toxic appearance. [] HENT: Normocephalic, atraumatic, bilateral external ears normal, oropharynx moist, no oral exudates, nose normal. [] Eyes: PERRLA, EOMI, conjunctiva normal, no discharge. [] Neck: Normal range of motion, no tenderness, supple. [] Cardiovascular: Regular rate and rhythm[] Lungs & Thorax: Bilateral breath sounds clear to auscultation [] Abdomen: Bowel sounds normal, soft, no tenderness. [] Skin: Warm, dry, no erythema, no rash. [] Extremities: No tenderness, no cyanosis, no clubbing, ROM intact, with bilateral lower extremity edema. [] Neurologic: Awake and alert, no focal deficits noted. [] Current Patient Data Vital Signs Vital Signs Date Time Temp Pulse Resp B/P (MAP) Pulse Ox O2 Delivery O2 Flow Rate FiO2 06/12/19 11:15 97.9 79 20 180/80 (113) 96 Room Air 97.9 Lab Values Laboratory Tests Test 06/12/19 11:25 06/12/19 12:03 Urine Collection Type Unknown Urine Color Yellow Urine Clarity Clear Urine pH 5.0 Urine Specific [place] 1.010 Urine Protein Negative mg/dL (NEG-TRACE) Urine Glucose (UA) Negative mg/dL (NEG) Urine Ketones (Stick) Negative mg/dL (NEG) Urine Blood Trace (NEG) Urine Nitrite Negative (NEG) Urine Bilirubin Negative (NEG) Urine Urobilinogen Dipstick 0.2 mg/dL (0.2 mg/dL) Urine Leukocyte Esterase Negative (NEG) Urine RBC 0 /HPF (0-2) Urine WBC 0 /HPF (0-4) Urine Squamous Epithelial Cells Mod /LPF Urine Bacteria Moderate /HPF (0-FEW) Urine Hyaline Casts Few /HPF Urine Mucus Slight /LPF White Blood Count 15.1 x10^3/uL (4.0-11.0) H Red Blood Count 4.92 x10^6/uL (3.50-5.40) Hemoglobin 14.8 g/dL (12.0-15.5) Hematocrit 44.3 % (36.0-47.0) Mean Corpuscular Volume 90 fL (79-100) Mean Corpuscular Hemoglobin 30 pg (25-35) Mean Corpuscular Hemoglobin Concent 34 g/dL (31-37) Red Cell Distribution Width 14.4 % (11.5-14.5) Platelet Count 135 x10^3/uL (140-400) L Neutrophils (%) (Auto) 84 % (31-73) H Lymphocytes (%) (Auto) 9 % (24-48) L Monocytes (%) (Auto) 7 % (0-9) Eosinophils (%) (Auto) 0 % (0-3) Basophils (%) (Auto) 0 % (0-3) Neutrophils # (Auto) 12.7 x10^3/uL (1.8-7.7) H Lymphocytes # (Auto) 1.4 x10^3/uL (1.0-4.8) Monocytes # (Auto) 1.0 x10^3/uL (0.0-1.1) Eosinophils # (Auto) 0.0 x10^3/uL (0.0-0.7) Basophils # (Auto) 0.0 x10^3/uL (0.0-0.2) Segmented Neutrophils % 81 % (35-66) H Band Neutrophils % 1 % (0-9) Lymphocytes % 11 % (24-48) L Monocytes % 6 % (0-10) Eosinophils % 1 % (0-5) Platelet Estimate Adequate (ADEQUATE) Sodium Level 147 mmol/L (136-145) H Potassium Level 3.6 mmol/L (3.5-5.1) Chloride Level 106 mmol/L (98-107) Carbon Dioxide Level 28 mmol/L (21-32) Anion Gap 13 (6-14) Blood Urea Nitrogen 29 mg/dL (7-20) H Creatinine 1.2 mg/dL (0.6-1.0) H Estimated GFR (Cockcroft-Gault) 42.4 BUN/Creatinine Ratio 24 (6-20) H Glucose Level 97 mg/dL (70-99) Calcium Level 9.6 mg/dL (8.5-10.1) Magnesium Level 2.2 mg/dL (1.8-2.4) Total Bilirubin 0.4 mg/dL (0.2-1.0) Aspartate Amino Transferase (AST) 25 U/L (15-37) Alanine Aminotransferase (ALT) 32 U/L (14-59) Alkaline Phosphatase 121 U/L (46-116) H Troponin I Quantitative < 0.017 ng/mL (0.000-0.055) Total Protein 7.3 g/dL (6.4-8.2) Albumin 3.9 g/dL (3.4-5.0) Albumin/Globulin Ratio 1.1 (1.0-1.7) Laboratory Tests 06/12/19 12:03 Laboratory Tests 06/12/19 12:03 EKG EKG [] Radiology/Procedures Radiology/Procedures [] Course & Med Decision Making Course & Med Decision Making Pertinent Labs and Imaging studies reviewed. (See chart for details) [] Dragon Disclaimer Dragon Disclaimer This electronic medical record was generated, in whole or in part, using a voice recognition dictation system. Departure Departure Impression: Primary Impression: Weakness Additional Impression: Dehydration Disposition: ADMITTED INPATIENT Admitting Physician: HADLEY (Dr. Walker) Condition: IMPROVED Referrals: LUIS STANFORD APRN (PCP) Problem Qualifiers ALFREDO BOWMAN Jr. DO Jun 12, 2019 12:13
[2019-06-12 12:20] LABS: BASO % 0 % (0-3); EOS % 0 % (0-3); HEMATOCRIT 44.3 % (36.0-47.0); HEMOGLOBIN 14.8 g/dL (12.0-15.5); LYMPH # 1.4 x10^3/uL (1.0-4.8); LYMPH % 9 % (24-48); MEAN CORPUSCULAR HEMOGLOBIN 30 pg (25-35); MEAN CORPUSCULAR HGB CONC 34 g/dL (31-37); MEAN CORPUSCULAR VOLUME 90 fL (79-100); MONO % 7 % (0-9); NEUT # 12.7 x10^3/uL (1.8-7.7); NEUT % 84 % (31-73); PLATELET COUNT 135 x10^3/uL (140-400); RED BLOOD COUNT 4.92 x10^6/uL (3.50-5.40); RED CELL DISTRIBUTION WIDTH 14.4 % (11.5-14.5); WHITE BLOOD COUNT 15.1 x10^3/uL (4.0-11.0)
[2019-06-12 12:33] LABS: CALCIUM 9.6 mg/dL (8.5-10.1); CREATININE 1.2 mg/dL (0.6-1.0); GFR 42.4; POTASSIUM 3.6 mmol/L (3.5-5.1)
[2019-06-12 12:38] LABS: ALBUMIN 3.9 g/dL (3.4-5.0); ALBUMIN/GLOBULIN RATIO 1.1 (1.0-1.7); MAGNESIUM 2.2 mg/dL (1.8-2.4); TOTAL BILIRUBIN 0.4 mg/dL (0.2-1.0); TOTAL PROTEIN 7.3 g/dL (6.4-8.2)
[2019-06-12 12:47] LABS: BILIRUBIN,URINE NEGATIVE (NEG); CLARITY,URINE CLEAR; COLOR,URINE YELLOW; NITRITE,URINE NEGATIVE (NEG); PROTEIN,URINE NEGATIVE (NEG-TRACE); UROBILINOGEN,URINE 0.2 mg/dL (0.2 mg/dL)
[2019-06-12 12:57] LABS: HYALINE CASTS, URINE FEW /HPF; SQUAMOUS EPITHELIAL CELL,UR MOD /LPF
[2019-06-12 12:58] LABS: BACTERIA,URINE MODERATE /HPF (0-FEW); RBC,URINE 0 /HPF (0-2); WBC,URINE 0 /HPF (0-4)
[2019-06-12 13:26] LABS: % BANDS 1 % (0-9); % EOS 1 % (0-5); % LYMPHS 11 % (24-48); % MONOS 6 % (0-10); % SEGS 81 % (35-66); PLT ESTIMATE ADEQUATE (ADEQUATE)
[2019-06-12] MEDS: IV NORMAL SALINE 1000ML BAG 1,000 ML IV SCH (14:00)
[2019-06-12 15:36] VITALS: BP 170/65
[2019-06-12 19:00] VITALS: BP 155/65
[2019-06-12] MEDS: LATANOPROST 0.005% OPHTH SOLUTION 2.5ML BOTTLE. OU SCH ×2 (21:00→21:12)
[2019-06-12] MEDS ORDERED: NON FORMULARY ITEM (Melatonin 10 MG) PO SCH (21:00)
[2019-06-12] MEDS: DABIGATRAN ETEXILATE 75 MG CAPSULE. PO SCH (21:10)
[2019-06-12] MEDS: CEFDINIR 300 MG CAPSULE PO SCH (21:11)
[2019-06-12] MEDS: METOPROLOL TART IMMED RELEASE 25 MG TABLET. PO SCH (21:11)
[2019-06-12] MEDS: SIMVASTATIN 20 MG TABLET PO SCH (21:11)
[2019-06-12] MEDS: BRIMONIDINE 0.2% OPHTH SOLUTION 5ML BOTTLE. OU SCH (21:12)
[2019-06-12] MEDS: DORZOLAMIDE 2% OPHTH SOLUTION 10ML BOTTLE. OU SCH (21:12)
[2019-06-12] MEDS: FLUTICASONE 50MCG/NASAL SPRAY 16GM BOTTLE. NS SCH (21:12)
[2019-06-12] MEDS ORDERED: cefTRIAXone IV Push 1 GM VIAL. IVP SCH (21:15)
--- NOTE | 2019-06-12 21:53 | HP ---
ADMIT DATE: 06/12/2019 CHIEF COMPLAINT: Urinary frequency. HISTORY OF PRESENT ILLNESS: The patient is a pleasant 89-year-old female who we just discharged yesterday. She has been weak. She has urinary frequency. States she keeps wetting herself. She did see a urologist at , but that urologist quit and told her she had a hyperactive bladder. Describes her symptoms as very irritating, rated at 7/10. The family is concerned that she is too weak and needs to go to rehab. I discussed the case with ER physician. We are going to admit the patient and do some bladder training. I am going to place a Nunze and we are going to get her to rehab eventually after we get her urinary issues resolved. PAST MEDICAL AND SURGICAL HISTORY: AFib, CAD, hypertension, urinary incontinence, chronic anticoagulation, arrhythmias, hyperlipidemia, cholecystectomy, hysterectomy, knee replacement, hernia repair, back surgeries, eye surgeries. ALLERGIES: CODEINE, DICLOFENAC, HYDROCODONE, LISINOPRIL, MECLIZINE, NAPROXEN, SERTRALINE, VENLAFAXINE. FAMILY HISTORY: Coronary artery disease and diabetes. SOCIAL HISTORY: She lives at home. She does not drink, smoke or take drugs. MEDICATIONS: Reviewed, please refer to the MRAD. She is on 17 home medications including Pradaxa, amiodarone, Zocor, metformin, Tylenol, potassium, Bumex, Flonase, Alphagan eyedrops, magnesium and vitamins. REVIEW OF SYSTEMS: GENERAL: No history of weight change, weakness or fevers. SKIN: No bruising, hair changes or rashes. EYES: No blurred, double or loss of vision. NOSE AND THROAT: No history of nosebleeds, hoarseness or sore throat. HEART: No history of palpitations, chest pain or shortness of breath on exertion. LUNGS: Denies cough, hemoptysis, wheezing or shortness of breath. GASTROINTESTINAL: Denies changes in appetite, nausea, vomiting, diarrhea or constipation. GENITOURINARY: She complains of urinary incontinence. NEUROLOGIC: Denies history of numbness, tingling, tremor or weakness. PSYCHIATRIC: No history of panic, anxiety or depression. ENDOCRINE: No history of heat or cold intolerance, polyuria or polydipsia. EXTREMITIES: Denies muscle weakness, joint pain, pain on walking or stiffness. PHYSICAL EXAMINATION: VITALS: Within normal limits and are stable. GENERAL: No apparent distress. Alert and oriented. HEENT: Head is normocephalic, atraumatic, pupils were equally round and reactive to light and accommodation. NECK: Supple, no JVD, no thyromegaly was noted. LUNGS: Clear to auscultation in all lung heranndez without rhonchi or wheezing. HEART: RRR, S1, S2 present. Peripheral pulses intact, no obvious murmurs were noted. ABDOMEN: Soft, nontender. Positive bowel sounds no organomegaly, normal bowel sounds. EXTREMITIES: Without any cyanosis, clubbing, or edema. Pedal pulses intact, Homans sign is negative. NEUROLOGIC: Normal speech, normal tone. A and O x 3, moves all extremities, no obvious focal deficits. PSYCHIATRIC: She seems a little depressed. SKIN: She has an old skin cancer that was removed from her face and it has healed well. VASCULAR: Good capillary refill, neurovascular bundle appears to be intact. GENITOURINARY, but she does not have a Nunez currently, but we are getting ready to place one. MUSCULOSKELETAL: She has good range of motion and is well-developed well-nourished. LABORATORY DATA: White count is 15. Sodium is 147, BUN is 29, creatinine 1.2, glucose 97. Urinalysis: Moderate bacteria, moderate squamous epithelial cells, so I suspect this is contaminated. ASSESSMENT AND PLAN: Urinary incontinence, debility, weakness, dehydration, leukocytosis, hypernatremia, azotemia. The patient is being admitted. We will go ahead and place a Nunez. Gentle IV hydration. I am going to resume her home meds. We will start some IV antibiotics. Deep vein thrombosis prophylaxis. Full code. Physical therapy/occupational therapy. We will get a penitentiary unit evaluation. Long-term prognosis is guarded. TREVOR DWYER DO DR: HELEN/david JOB#: [id number] / [id number]
[2019-06-12] MEDS: TEMAZEPAM 15 MG CAPSULE PO PRN (22:12)
[2019-06-12 23:00] VITALS: BP 99/46
[2019-06-13] MEDS: IV NORMAL SALINE 1000ML BAG 1,000 ML IV SCH ×2 (01:44→10:00)
[2019-06-13 03:00] VITALS: BP 145/54
--- NOTE | 2019-06-13 06:34 | EKG ---
[facility] [address] [place] [address] Test Date: 2019-06-12 Test Time: 12:35:56 Pat Name: QUITA FRANCO Department: Room: 574 1 Gender: F Configuration Consultant: : [id number] Requested By: ALFREDO BOWMAN Order Number: [id number] Reading MD: Yovani Sharpe MD Measurements Intervals Valentines Rate: 60 P: 14 CT: 158 QRS: 6 QRSD: 82 T: 28 QT: 450 QTc: 455 Interpretive Statements SINUS RHYTHM Electronically Signed On 06-13-2019 11:22:19 RECORDS ASSOCIATE by Yovani Sharpe MD
[2019-06-13 07:00] VITALS: BP 171/68
[2019-06-13] MEDS: FLUTICASONE 50MCG/NASAL SPRAY 16GM BOTTLE. NS SCH ×2 (08:04→21:19)
[2019-06-13] MEDS: BUMETANIDE 1 MG TABLET. PO SCH (08:05)
[2019-06-13] MEDS: DABIGATRAN ETEXILATE 75 MG CAPSULE. PO SCH ×2 (08:05→21:20)
[2019-06-13] MEDS: MAGNESIUM OXIDE 400 MG TABLET PO SCH (08:05)
[2019-06-13] MEDS: AMIODARONE HCL 200 MG TABLET. PO SCH (08:07)
[2019-06-13] MEDS: CEFDINIR 300 MG CAPSULE PO SCH ×2 (08:08→21:21)
[2019-06-13] MEDS: MULTIVITAMIN with MINERAL TABLET. PO SCH (08:08)
[2019-06-13] MEDS: POTASSIUM CHLORIDE 20 MEQ TABLET.ER. PO SCH (08:08)
[2019-06-13] MEDS: METOPROLOL TART IMMED RELEASE 25 MG TABLET. PO SCH ×3 (08:09→23:20)
[2019-06-13] MEDS: BRIMONIDINE 0.2% OPHTH SOLUTION 5ML BOTTLE. OU SCH ×2 (08:10→21:19)
[2019-06-13] MEDS: DORZOLAMIDE 2% OPHTH SOLUTION 10ML BOTTLE. OU SCH ×2 (08:10→21:19)
[2019-06-13] MEDS ORDERED: NON FORMULARY ITEM (Ubidecarenone (Coq-10) 100 MG) PO SCH (09:00)
[2019-06-13 11:00] VITALS: BP 174/70
--- NOTE | 2019-06-13 11:33 | PDOC ---
[employer] PROGRESS NOTE Chief Complaint Chief Complaint Urinary incontinence debility weakness dehydration, leukocytosis hypernatremia azotemia. History of Present Illness History of Present Illness 06/13/19 Pt seen and examined by me Nunez in place with good urine output DW RN Chart reviewed Vitals/I&O Vitals/I&O: Vital Signs Date Time Temp Pulse Resp B/P (MAP) Pulse Ox O2 Delivery O2 Flow Rate FiO2 06/13/19 08:09 60 171/68 06/13/19 07:00 97.9 16 96 Room Air 97.9 I & O 06/12/19 06/12/19 06/13/19 15:00 23:00 07:00 Intake Total 200 ml 300 ml Output Total 300 ml Balance 200 ml 0 ml Physical Exam General: Alert, Oriented X3, Cooperative, No acute distress Heart: Regular rate, Normal S1, Normal S2 Lungs: Clear Extremities: No clubbing, No edema Skin: No rashes Labs Labs: Laboratory Tests Test 06/12/19 12:03 White Blood Count 15.1 x10^3/uL (4.0-11.0) Red Blood Count 4.92 x10^6/uL (3.50-5.40) Hemoglobin 14.8 g/dL (12.0-15.5) Hematocrit 44.3 % (36.0-47.0) Mean Corpuscular Volume 90 fL (79-100) Mean Corpuscular Hemoglobin 30 pg (25-35) Mean Corpuscular Hemoglobin Concent 34 g/dL (31-37) Red Cell Distribution Width 14.4 % (11.5-14.5) Platelet Count 135 x10^3/uL (140-400) Neutrophils (%) (Auto) 84 % (31-73) Lymphocytes (%) (Auto) 9 % (24-48) Monocytes (%) (Auto) 7 % (0-9) Eosinophils (%) (Auto) 0 % (0-3) Basophils (%) (Auto) 0 % (0-3) Neutrophils # (Auto) 12.7 x10^3/uL (1.8-7.7) Lymphocytes # (Auto) 1.4 x10^3/uL (1.0-4.8) Monocytes # (Auto) 1.0 x10^3/uL (0.0-1.1) Eosinophils # (Auto) 0.0 x10^3/uL (0.0-0.7) Basophils # (Auto) 0.0 x10^3/uL (0.0-0.2) Segmented Neutrophils % 81 % (35-66) Band Neutrophils % 1 % (0-9) Lymphocytes % 11 % (24-48) Monocytes % 6 % (0-10) Eosinophils % 1 % (0-5) Platelet Estimate Adequate (ADEQUATE) Sodium Level 147 mmol/L (136-145) Potassium Level 3.6 mmol/L (3.5-5.1) Chloride Level 106 mmol/L (98-107) Carbon Dioxide Level 28 mmol/L (21-32) Anion Gap 13 (6-14) Blood Urea Nitrogen 29 mg/dL (7-20) Creatinine 1.2 mg/dL (0.6-1.0) Estimated GFR (Cockcroft-Gault) 42.4 BUN/Creatinine Ratio 24 (6-20) Glucose Level 97 mg/dL (70-99) Calcium Level 9.6 mg/dL (8.5-10.1) Magnesium Level 2.2 mg/dL (1.8-2.4) Total Bilirubin 0.4 mg/dL (0.2-1.0) Aspartate Amino Transf (AST/SGOT) 25 U/L (15-37) Alanine Aminotransferase (ALT/SGPT) 32 U/L (14-59) Alkaline Phosphatase 121 U/L (46-116) Troponin I Quantitative < 0.017 ng/mL (0.000-0.055) Total Protein 7.3 g/dL (6.4-8.2) Albumin 3.9 g/dL (3.4-5.0) Albumin/Globulin Ratio 1.1 (1.0-1.7) Review of Systems Review of Systems: (-) CP, SOB, abd pain Assessment and Plan Assessmemt and Plan Problems Medical Problems: (1) Dehydration Status: Acute Urinary incontinence debility weakness dehydration, leukocytosis hypernatremia azotemia Plan: continue PO abx IVF PT/OT home meds dvt ppx full code Comment Review of Relevant I have reviewed the following items yuriy (where applicable) has been applied. Medications: Current Medications Medications (Trade) Dose Ordered Sig/Pacheco Route PRN Reason Start Time Stop Time Status Last Admin Dose Admin Sodium Chloride 1,000 ml @ 100 mls/hr Q10H IV 06/12/19 14:00 06/13/19 13:59 06/13/19 01:44 Cefdinir (Omnicef) 300 mg BID PO 06/12/19 21:00 06/13/19 08:08 Dabigatran (Pradaxa) 75 mg BID PO 06/12/19 21:00 06/13/19 08:05 Dorzolamide HCl (Trusopt) 1 drop BID OU 06/12/19 21:00 06/13/19 08:10 Metoprolol Tartrate (Lopressor) 25 mg BID PO 06/12/19 21:00 06/13/19 08:09 Simvastatin (Zocor) 20 mg QHS PO 06/12/19 21:00 06/12/19 21:11 Amiodarone HCl (Cordarone) 400 mg DAILY PO 06/13/19 09:00 06/13/19 08:07 Brimonidine Tartrate (Alphagan) 1 drop BID OU 06/12/19 21:00 06/13/19 08:10 Bumetanide (Bumex) 2 mg DAILY PO 06/13/19 09:00 06/13/19 08:05 Fluticasone Propionate (Flonase) 2 spray BID NS 06/12/19 21:00 06/13/19 08:04 Magnesium Oxide (Magnesium Oxide) 200 mg DAILY PO 06/13/19 09:00 06/13/19 08:05 Multivitamins (Thera M Plus) 1 tab DAILY PO 06/13/19 09:00 06/13/19 08:08 Potassium Chloride (Klor-Con) 20 meq DAILYWBKFT PO 06/13/19 08:00 06/13/19 08:08 Temazepam (Restoril) 15 mg PRN QHS PRN PO INSOMNIA 06/12/19 21:45 06/12/19 22:12 TREVOR DWYER III DO Jun 13, 2019 11:33
[2019-06-13 15:00] VITALS: BP 158/59
[2019-06-13 19:00] VITALS: BP 117/44
[2019-06-13] MEDS: LACTOBACILLUS RHAMNOSUS GG 1 CAPSULE. PO SCH (21:21)
[2019-06-13] MEDS: SIMVASTATIN 20 MG TABLET PO SCH (21:21)
[2019-06-13] MEDS: LATANOPROST 0.005% OPHTH SOLUTION 2.5ML BOTTLE. OU SCH (21:24)
[2019-06-13] MEDS: TEMAZEPAM 15 MG CAPSULE PO PRN (21:26)
[2019-06-13 23:08] VITALS: BP 176/75
[2019-06-14 02:46] VITALS: BP 165/67
[2019-06-14 07:00] VITALS: BP 192/75
[2019-06-14] MEDS: AMIODARONE HCL 200 MG TABLET. PO SCH ×2 (09:00→09:53)
--- NOTE | 2019-06-14 09:50 | NUR ---
PATIENT TOOK ONLY 2OOMG. OF AMIODARONE THIS AM STATED, "I WAS TO TAKE 400MG. FOR 7 DAYS AND THEN RETURN TO 200MG, "I'LL TAKE 200MG. TODAY."
[2019-06-14] MEDS: BUMETANIDE 1 MG TABLET. PO SCH (09:52)
[2019-06-14] MEDS: CEFDINIR 300 MG CAPSULE PO SCH ×2 (09:53→20:32)
[2019-06-14] MEDS: METOPROLOL TART IMMED RELEASE 25 MG TABLET. PO SCH ×2 (09:53→20:33)
[2019-06-14] MEDS: DABIGATRAN ETEXILATE 75 MG CAPSULE. PO SCH ×2 (09:53→20:32)
[2019-06-14] MEDS: MAGNESIUM OXIDE 400 MG TABLET PO SCH (09:54)
[2019-06-14] MEDS: LACTOBACILLUS RHAMNOSUS GG 1 CAPSULE. PO SCH ×2 (09:54→20:31)
[2019-06-14] MEDS: POTASSIUM CHLORIDE 20 MEQ TABLET.ER. PO SCH (09:54)
[2019-06-14] MEDS: MULTIVITAMIN with MINERAL TABLET. PO SCH (09:54)
[2019-06-14] MEDS: BRIMONIDINE 0.2% OPHTH SOLUTION 5ML BOTTLE. OU SCH ×2 (09:55→20:30)
[2019-06-14] MEDS: FLUTICASONE 50MCG/NASAL SPRAY 16GM BOTTLE. NS SCH ×2 (09:55→20:30)
[2019-06-14] MEDS: DORZOLAMIDE 2% OPHTH SOLUTION 10ML BOTTLE. OU SCH ×2 (09:56→20:39)
[2019-06-14 11:00] VITALS: BP 143/53
--- NOTE | 2019-06-14 11:38 | PDOC ---
[employer] PROGRESS NOTE Chief Complaint Chief Complaint Urinary incontinence debility weakness dehydration, leukocytosis hypernatremia azotemia. History of Present Illness History of Present Illness 06/14/19 Pt seen and examined. Pt laying in bed comfortably. Nunez in place with good urine output Chart reviewed Vitals/I&O Vitals/I&O: Vital Signs Date Time Temp Pulse Resp B/P (MAP) Pulse Ox O2 Delivery O2 Flow Rate FiO2 06/14/19 11:00 98.0 62 16 143/53 (83) 95 Room Air 98.0 I & O 06/13/19 06/13/19 06/14/19 15:00 23:00 07:00 Intake Total 1480 ml 180 ml Output Total 1350 ml 300 ml 550 ml Balance 130 ml -120 ml -550 ml Physical Exam Physical Exam: HEENT: Nose midline. No scleral icterus. General: Alert, Cooperative, No acute distress Heart: Regular rate, Normal S1, Normal S2, No murmurs Lungs: Clear, Other (No respiratory distress) Abdomen: Normal bowel sounds, Soft Extremities: No clubbing, No cyanosis Review of Systems Review of Systems: Neurologic: Denies headaches Cardiovascular: Denies chest pain GI: Denies abdominal pain Assessment and Plan Assessmemt and Plan Problems Medical Problems: (1) Dehydration Status: Acute Urinary incontinence debility weakness dehydration, leukocytosis hypernatremia azotemia. PLAN - Nunez to be SD - Plan to discharge to SNU tomorrow am if available - Norvasc 10 mg PO q day for blood pressure - PT/OT - Home medications - Follow labs - DVT prophylaxis Comment Review of Relevant I have reviewed the following items yuriy (where applicable) has been applied. Medications: Current Medications Medications (Trade) Dose Ordered Sig/Pacheco Route PRN Reason Start Time Stop Time Status Last Admin Dose Admin Metoprolol Tartrate (Lopressor) 12.5 mg BID PO 06/13/19 21:00 06/14/19 09:53 Lactobacillus Rhamnosus (Culturelle) 1 cap BID PO 06/13/19 21:00 06/14/19 09:54 TREVOR DWYER III DO Jun 14, 2019 11:38
[2019-06-14] MEDS: ANTI-COAG MONITOR BY PHARMACY. MC PRN (12:43)
--- NOTE | 2019-06-14 12:46 | NUR ---
SW following for discharge planning. Chart reviewed, discussed with RN, pt is from home. PT/OT has been ordered. If pt is requiring SNU, pt will need one more midnight. SW will continue to follow.
[2019-06-14] MEDS: amLODIPine BESYLATE 10 MG TABLET PO SCH (13:45)
[2019-06-14 15:00] VITALS: BP 136/76
[2019-06-14 19:00] VITALS: BP 165/61
[2019-06-14] MEDS: SIMVASTATIN 20 MG TABLET PO SCH (20:32)
[2019-06-14] MEDS: TEMAZEPAM 15 MG CAPSULE PO PRN (20:39)
[2019-06-14] MEDS: ACETAMINOPHEN 325 MG TABLET. PO PRN (20:43)
[2019-06-14] MEDS: LATANOPROST 0.005% OPHTH SOLUTION 2.5ML BOTTLE. OU SCH (20:48)
[2019-06-14 23:00] VITALS: BP 136/47
[2019-06-15 03:00] VITALS: BP 117/65
[2019-06-15 07:00] VITALS: BP 152/68
[2019-06-15] MEDS: MULTIVITAMIN with MINERAL TABLET. PO SCH (09:16)
[2019-06-15] MEDS: DABIGATRAN ETEXILATE 75 MG CAPSULE. PO SCH ×2 (09:16→20:50)
[2019-06-15] MEDS: MAGNESIUM OXIDE 400 MG TABLET PO SCH (09:17)
[2019-06-15] MEDS: amLODIPine BESYLATE 10 MG TABLET PO SCH (09:17)
[2019-06-15] MEDS: POTASSIUM CHLORIDE 20 MEQ TABLET.ER. PO SCH (09:17)
[2019-06-15] MEDS: CEFDINIR 300 MG CAPSULE PO SCH ×2 (09:17→20:50)
[2019-06-15] MEDS: LACTOBACILLUS RHAMNOSUS GG 1 CAPSULE. PO SCH ×2 (09:18→20:50)
[2019-06-15] MEDS: METOPROLOL TART IMMED RELEASE 25 MG TABLET. PO SCH ×2 (09:18→20:50)
[2019-06-15] MEDS: AMIODARONE HCL 200 MG TABLET. PO SCH (09:22)
[2019-06-15] MEDS: BUMETANIDE 1 MG TABLET. PO SCH (09:27)
[2019-06-15] MEDS: DORZOLAMIDE 2% OPHTH SOLUTION 10ML BOTTLE. OU SCH ×2 (09:28→20:51)
[2019-06-15] MEDS: BRIMONIDINE 0.2% OPHTH SOLUTION 5ML BOTTLE. OU SCH ×2 (09:28→20:51)
[2019-06-15] MEDS: FLUTICASONE 50MCG/NASAL SPRAY 16GM BOTTLE. NS SCH ×2 (09:28→20:51)
[2019-06-15] MEDS: ACETAMINOPHEN 325 MG TABLET. PO PRN ×3 (09:30→21:05)
--- NOTE | 2019-06-15 10:54 | NUR ---
SW following pt. Spoke with OT and pt has Skilled needs, PT to work with pt again. SW spoke with pt and pt's son, Milton: [phone] about SNU, options and medicare coverage. Pt wants to go to [facility] only for SNU and wants to go home after rehabilitation. [facility] phoned and faxed referral to [facility]: [phone], fax: [phone]. Acceptance pending. SW will continue to follow. Discussed with Physician.
--- NOTE | 2019-06-15 10:55 | PDOC ---
[employer] PROGRESS NOTE Chief Complaint Chief Complaint Urinary incontinence debility weakness dehydration, leukocytosis hypernatremia azotemia. History of Present Illness History of Present Illness 06/14/19 Pt seen and examined. Pt laying in bed comfortably. Nunez in place with good urine output Chart reviewed 06/15/19 Pt seen and examined. Pt sitting up in chair comfortably with son by bedside. Pt case discussed with RN. Chart reviewed Vitals/I&O Vitals/I&O: Vital Signs Date Time Temp Pulse Resp B/P (MAP) Pulse Ox O2 Delivery O2 Flow Rate FiO2 06/15/19 09:22 57 152/68 06/15/19 07:00 98.0 18 95 Room Air 98.0 I & O 06/14/19 06/14/19 06/15/19 15:00 23:00 07:00 Intake Total 480 ml 400 ml 240 ml Output Total 750 ml 350 ml 0 ml Balance -270 ml 50 ml 240 ml Physical Exam Physical Exam: HEENT: Nose midline. No scleral icterus. General: Alert, Cooperative, No acute distress Heart: Regular rate, Normal S1, Normal S2, No murmurs Lungs: Clear, Other (No respiratory distress) Abdomen: Normal bowel sounds, Soft, No tenderness Extremities: No clubbing, No cyanosis Review of Systems Review of Systems: Neurologic: Denies headache Respiratory: Denies shortness of breath Musculoskeletal: Admits arthritis Assessment and Plan Assessmemt and Plan Problems Medical Problems: (1) Dehydration Status: Acute Urinary incontinence debility weakness dehydration, leukocytosis hypernatremia azotemia. PLAN - Waiting on rehab placement Comment Review of Relevant I have reviewed the following items yuriy (where applicable) has been applied. Medications: Current Medications Medications (Trade) Dose Ordered Sig/Pacheco Route PRN Reason Start Time Stop Time Status Last Admin Dose Admin Amlodipine Besylate (Norvasc) 10 mg DAILY PO 06/14/19 12:00 06/15/19 09:17 Info (Anti-Coagulation Monitoring By Pharmacy) 1 each PRN DAILY PRN MC SEE COMMENTS 06/14/19 12:45 06/14/19 12:43 TREVOR DWYER III DO Jun 15, 2019 10:55
[2019-06-15 11:00] VITALS: BP 114/52
--- NOTE | 2019-06-15 11:25 | SNU/HH DC ---
DISCHARGE ORDERS DISCHARGE INFORMATION: FINAL DIAGNOSIS Problems Medical Problems: (1) Dehydration Status: Acute CONDITION ON DISCHARGE: Stable CODE STATUS: Code Status: Full [facility]: SNF STAY <30 DAYS: Yes HOSPICE: HOSPICE: No HOSPICE EVAL & TREAT: No LTAC: ADMIT TO LTAC: No POST DISCHARGE ORDERS: ACTIVITY ORDERS: Activity as tolerated WEIGHT BEARING STATUS: As tolerated DIET AFTER DISCHARGE: Cardiac CHECKS AFTER DISCHARGE: CHECKS AFTER DISCHARGE: Check blood press - daily, Weigh Yourself Daily TREATMENT/EQUIPMENT ORDERS: ADAPTIVE EQUIPMENT NEEDED: None Physical Therapy For: Evalulation/Treatment Occupational Therapy For: Evaluation/Treatment Speech Language Pathology For: Evaluation/Treatment DISCHARGE MEDICATIONS: Home Meds Active Scripts Cefdinir (CEFDINIR) 300 Mg Capsule, 1 CAP PO BID for uti, #14 CAP Prov:RUMA BLEVINS MD 06/11/19 Potassium Chloride (POTASSIUM CHLORIDE) 20 Meq Tablet.er, 20 MEQ PO DAILY for low K, on bumex, #20 TAB.SR Prov:RUMA BLEVINS MD 02/16/19 Dabigatran Etexilate Mesylate (PRADAXA) 75 Mg Capsule, 75 MG PO BID for afib for 30 Days, #60 CAP Prov:ROXANA PRESCOTT MD 06/16/18 Reported Medications Amiodarone Hcl (AMIODARONE HCL) 200 Mg Tablet, 1 TAB PO DAILY for afib, #90 TAB 1 Refill 06/11/19 Amiodarone Hcl (AMIODARONE HCL) 400 Mg Tablet, 1 TAB PO DAILY for afib for 30 Days, #7 TAB 0 Refills 06/11/19 Metoprolol Tartrate (METOPROLOL TARTRATE) 25 Mg Tablet, 25 MG PO BID for FOR HYPERTENSION, #60 TAB 0 Refills 06/10/19 Dorzolamide Hcl (DORZOLAMIDE HCL) 10 Ml Drops, 1 DRP OU BID for glaucoma 06/12/18 Bumetanide (BUMETANIDE) 2 Mg Tablet, 1 TAB PO DAILY, #30 TAB 5 Refills 04/01/18 Fluticasone Propionate (Flonase Allergy Relief) 9.9 Ml [place].susp, 2 SPRAYS NS BID, BOTTLE 07/27/17 Acetaminophen (TYLENOL) 325 Mg Tablet, 2 TAB PO Q6HRS PRN for MILD PAIN, #60 TAB 2 Refills 07/26/17 Brimonidine Tartrate (ALPHAGAN P) 5 Ml Drops, 5 ML OP BID, DROP 07/26/17 Latanoprost (LATANOPROST) 2.5 Ml Drops, 1 DROP EACHEYE QHS, #7.5 ML 3 Refills 07/26/17 Magnesium Oxide (MAGNESIUM) 400 Mg Capsule, 250 MG PO DAILY, CAP 07/26/17 Ubidecarenone (COQ-10) 100 Mg Capsule, 100 MG PO DAILY, CAP 07/26/17 Melatonin (MELATONIN) 10 Mg Capsule, 10 MG PO HS, CAP 07/26/17 Multivitamin (MULTIVITAMINS) 1 Each Tablet, 1 TAB PO DAILY, #90 TAB 3 Refills 07/26/17 Simvastatin (ZOCOR) 20 Mg Tablet, 1 TAB PO DAILY, #90 TAB 1 Refill 07/26/17 Discontinued Scripts Hydralazine Hcl (HYDRALAZINE HCL) 25 Mg Tablet, 25 MG PO BID for htn, #60 TAB Prov:RUMA BLEVINS MD 06/09/19 Ciprofloxacin Hcl (CIPRO) 250 Mg Tablet, 250 MG PO BID for uti for 7 Days, TAB Prov:RUMA BLEVINS MD 02/16/19 Clonidine Hcl (CATAPRES) 0.1 Mg Tablet, 0.1 MG PO BID, #30 TAB Prov:AMBER SAUCEDA DO 07/19/18 Amlodipine Besylate (AMLODIPINE BESYLATE) 5 Mg Tablet, 5 MG PO DAILY for htn for 30 Days, #30 TAB Prov:ROXANA PRESCOTT MD 06/16/18 TREVOR DWYER III DO Jun 15, 2019 11:25
--- NOTE | 2019-06-15 11:26 | SNU/HH DC ---
DISCHARGE WITH HOME HEALTH DISCHARGE INFORMATION: Final Diagnosis: Problems Medical Problems: (1) Dehydration Status: Acute Condition on Discharge: Stable CODE STATUS: Code Status: Full HOME HEALTH: Face to Face: I certify this patient is under my care and that I, or a nurse practitioner or physician's temporary administrative assistant working with me, had a face to face encounter that meets the physician face to face encounter requirements with this patient on []. Medical Complications: DJD Correction For: Assess & Educate Safety RN For Eval/Treatment: Yes Physical Therapy For: Evalulation/Treatment Occupational Therapy For: Evaluation/Treatment Home Health Aide For: Self-care FL[employer] RANGING [employer]BER For: Community Resources Pt Meets Homebound Status: Unsteady balance w/ amb, POST DISCHARGE ORDERS: Activity Instructions for Disc: Activity as tolerated Weight Bearing Status after Di: As tolerated DIET AFTER DISCHARGE: Cardiac CHECKS AFTER DISCHARGE: Checks after discharge: Check blood press - daily, Weigh Yourself Daily TREATMENT/EQUIPMENT ORDERS: Adaptive Equipment Issued: None CERTIFICATION STATEMENT: Certification Statement: Certification Statement: Based on the above finding, I certify that this patient is confined to the home and needs intermittent snf care, physical therapy and/or speech therapy, or continues to need occupational therapy.~ This patient is under my care, and I have initiated the establishment of the plan of care.~ This patient will be followed by myself or a community physician who will periodically review the plan of care. Home Meds Active Scripts Cefdinir (CEFDINIR) 300 Mg Capsule, 1 CAP PO BID for uti, #14 CAP Prov:RUMA BLEVINS MD 06/11/19 Potassium Chloride (POTASSIUM CHLORIDE) 20 Meq Tablet.er, 20 MEQ PO DAILY for low K, on bumex, #20 TAB.SR Prov:RUMA BLEVINS MD 02/16/19 Dabigatran Etexilate Mesylate (PRADAXA) 75 Mg Capsule, 75 MG PO BID for afib for 30 Days, #60 CAP Prov:ROXANA PRESCOTT MD 06/16/18 Reported Medications Amiodarone Hcl (AMIODARONE HCL) 200 Mg Tablet, 1 TAB PO DAILY for afib, #90 TAB 1 Refill 06/11/19 Amiodarone Hcl (AMIODARONE HCL) 400 Mg Tablet, 1 TAB PO DAILY for afib for 30 Days, #7 TAB 0 Refills 06/11/19 Metoprolol Tartrate (METOPROLOL TARTRATE) 25 Mg Tablet, 25 MG PO BID for FOR HYPERTENSION, #60 TAB 0 Refills 06/10/19 Dorzolamide Hcl (DORZOLAMIDE HCL) 10 Ml Drops, 1 DRP OU BID for glaucoma 06/12/18 Bumetanide (BUMETANIDE) 2 Mg Tablet, 1 TAB PO DAILY, #30 TAB 5 Refills 04/01/18 Fluticasone Propionate (Flonase Allergy Relief) 9.9 Ml Thomson.susp, 2 SPRAYS NS BID, BOTTLE 07/27/17 Acetaminophen (TYLENOL) 325 Mg Tablet, 2 TAB PO Q6HRS PRN for MILD PAIN, #60 TAB 2 Refills 07/26/17 Brimonidine Tartrate (ALPHAGAN P) 5 Ml Drops, 5 ML OP BID, DROP 07/26/17 Latanoprost (LATANOPROST) 2.5 Ml Drops, 1 DROP EACHEYE QHS, #7.5 ML 3 Refills 07/26/17 Magnesium Oxide (MAGNESIUM) 400 Mg Capsule, 250 MG PO DAILY, CAP 07/26/17 Ubidecarenone (COQ-10) 100 Mg Capsule, 100 MG PO DAILY, CAP 07/26/17 Melatonin (MELATONIN) 10 Mg Capsule, 10 MG PO HS, CAP 07/26/17 Multivitamin (MULTIVITAMINS) 1 Each Tablet, 1 TAB PO DAILY, #90 TAB 3 Refills 07/26/17 Simvastatin (ZOCOR) 20 Mg Tablet, 1 TAB PO DAILY, #90 TAB 1 Refill 07/26/17 Discontinued Scripts Hydralazine Hcl (HYDRALAZINE HCL) 25 Mg Tablet, 25 MG PO BID for htn, #60 TAB Prov:RUMA BLEVINS MD 06/09/19 Ciprofloxacin Hcl (CIPRO) 250 Mg Tablet, 250 MG PO BID for uti for 7 Days, TAB Prov:RUMA BLEVINS MD 02/16/19 Clonidine Hcl (CATAPRES) 0.1 Mg Tablet, 0.1 MG PO BID, #30 TAB Prov:AMBER SAUCEDA DO 07/19/18 Amlodipine Besylate (AMLODIPINE BESYLATE) 5 Mg Tablet, 5 MG PO DAILY for htn for 30 Days, #30 TAB Prov:ROXANA PRESCOTT MD 06/16/18 TREVOR DWYER III DO Jun 15, 2019 11:26
[2019-06-15 14:55] VITALS: BP 125/47
[2019-06-15] MEDS: ANTI-COAG MONITOR BY PHARMACY. MC PRN (15:09)
--- NOTE | 2019-06-15 15:47 | NUR ---
[facility]AD following pt. Pt has been accepted at [facility] but they are not able to take pt until tomorrow morning. [facility] faxed orders and Mera has set up transport for 1000 tomorrow. Pt was seen by Mera today and is agreeable with dc plan. Pt stated she had already talked to her son and he is aware she is going tomorrow. Discussed with RN. Anticipate dc to SNF tomorrow.
[2019-06-15 19:00] VITALS: BP 129/51
[2019-06-15] MEDS: TEMAZEPAM 15 MG CAPSULE PO PRN (20:49)
[2019-06-15] MEDS: SIMVASTATIN 20 MG TABLET PO SCH (20:50)
[2019-06-15] MEDS: LATANOPROST 0.005% OPHTH SOLUTION 2.5ML BOTTLE. OU SCH (20:51)
[2019-06-15 23:00] VITALS: BP 174/70
[2019-06-16 03:00] VITALS: BP 151/55
[2019-06-16 07:00] VITALS: BP 198/78
[2019-06-16] MEDS ORDERED: AMIODARONE HCL 200 MG TABLET. PO SCH (09:00)
[2019-06-16] MEDS: LACTOBACILLUS RHAMNOSUS GG 1 CAPSULE. PO SCH (09:29)
[2019-06-16] MEDS: BUMETANIDE 1 MG TABLET. PO SCH (09:29)
[2019-06-16] MEDS: DABIGATRAN ETEXILATE 75 MG CAPSULE. PO SCH (09:29)
[2019-06-16] MEDS: MAGNESIUM OXIDE 400 MG TABLET PO SCH (09:29)
[2019-06-16] MEDS: MULTIVITAMIN with MINERAL TABLET. PO SCH (09:29)
[2019-06-16] MEDS: CEFDINIR 300 MG CAPSULE PO SCH (09:29)
[2019-06-16] MEDS: POTASSIUM CHLORIDE 20 MEQ TABLET.ER. PO SCH (09:30)
[2019-06-16] MEDS: amLODIPine BESYLATE 10 MG TABLET PO SCH (09:30)
[2019-06-16 09:31] VITALS: BP 198/78
[2019-06-16] MEDS: METOPROLOL TART IMMED RELEASE 25 MG TABLET. PO SCH (09:31)
[2019-06-16] MEDS: DORZOLAMIDE 2% OPHTH SOLUTION 10ML BOTTLE. OU SCH (09:31)
[2019-06-16] MEDS: BRIMONIDINE 0.2% OPHTH SOLUTION 5ML BOTTLE. OU SCH (09:31)
[2019-06-16] MEDS: FLUTICASONE 50MCG/NASAL SPRAY 16GM BOTTLE. NS SCH (09:31)
--- NOTE | 2019-06-16 10:41 | NUR ---
SW following pt. Orders faxed to [facility] and discussed with Mera. Pt will transport via facility arranged w/c van at 1000. Pt and pt's son notified and agreeable with dc plan. Discussed with LINDA.
--- NOTE | 2019-06-16 11:27 | NUR ---
Pt left unit by wheelchair at approx 1015 accompanied by transportation. Pt IV and Nunez catheter removed with no complications. Discharge paperwork sent with pt upon discharge.
--- NOTE | 2019-06-16 11:30 | NUR ---
This RN gave report to MARAL Hubbard at [facility].
--- NOTE | 2019-06-16 11:39 | PDOC ---
[employer] PROGRESS NOTE Chief Complaint Chief Complaint Urinary incontinence debility weakness dehydration, leukocytosis hypernatremia azotemia. History of Present Illness History of Present Illness 06/14/19 Pt seen and examined. Pt laying in bed comfortably. Nunez in place with good urine output Chart reviewed 06/15/19 Pt seen and examined. Pt sitting up in chair comfortably with son by bedside. Pt case discussed with RN. Chart reviewed 06/16/19 Pt resting in chair this morning. Pt case discussed with RN. Chart reviewed Vitals/I&O Vitals/I&O: Vital Signs Date Time Temp Pulse Resp B/P (MAP) Pulse Ox O2 Delivery O2 Flow Rate FiO2 06/16/19 09:31 62 198/78 06/16/19 08:00 Room Air 06/16/19 07:00 97.6 18 92 97.6 I & O 06/15/19 06/15/19 06/16/19 15:00 23:00 07:00 Intake Total 100 ml 0 ml Output Total 1200 ml 750 ml Balance -1100 ml -750 ml Physical Exam General: Alert, Cooperative, No acute distress Heart: Regular rate, Normal S1, Normal S2, No murmurs Lungs: Clear, Other (No respiratory distress) Abdomen: Normal bowel sounds, Soft, No tenderness Extremities: No clubbing, No cyanosis Review of Systems Review of Systems: Unable to obtain Assessment and Plan Assessmemt and Plan Problems Medical Problems: (1) Dehydration Status: Acute Urinary incontinence debility weakness dehydration, leukocytosis hypernatremia azotemia. PLAN - Patient to be discharged to rehab today. Comment Review of Relevant I have reviewed the following items yuriy (where applicable) has been applied. Medications: Current Medications Medications (Trade) Dose Ordered Sig/Pacheco Route PRN Reason Start Time Stop Time Status Last Admin Dose Admin Amiodarone HCl (Cordarone) 200 mg DAILY PO 06/16/19 09:00 06/16/19 09:30 TREVOR DWYER III DO Jun 16, 2019 11:39
--- NOTE | 2019-06-21 09:47 | DS ---
DATE OF DISCHARGE: 06/16/2019 ADMISSION DIAGNOSES: Weakness, dehydration. DISCHARGE DIAGNOSES: Resolving weakness, resolving dehydration. HOSPITAL COURSE: The patient is a pleasant 89-year-old female who presented with the weakness and dehydration. Basically, we had admitted her a week or two earlier and she came right back, so we admitted her again and gave her fluids and physical therapy, occupational therapy, did some education on her meds and basically, she returned to baseline, but was quite debilitated. She requested to go to a care home. We discharged to skilled. DISPOSITION: Skilled. ACTIVITY: As tolerated. DIET: Low sodium. MEDICATIONS: Please see the MRAD. TOTAL TIME: 32 minutes. TREVOR DWYER DO DR: HELEN/david JOB#: [id number] / [id number]
== END 2019-06-16 10:15 | DRG 641 ==
LOC: ER 11:06 → 5 SOUTH 13:44 → ER 15:07
PROVIDERS: ADMIT Internal Medicine; ATTEND Internal Medicine
DX: E86.0 Dehydration (principal); E87.0 Hyperosmolality and hypernatremia; R32 Unspecified urinary incontinence; D72.829 Elevated white blood cell count, unspecified; E78.5 Hyperlipidemia, unspecified; I10 Essential (primary) hypertension; I25.10 Atherosclerotic heart disease of native coronary artery without angina pectoris; I48.91 Unspecified atrial fibrillation; N32.81 Overactive bladder; Z79.01 Long term (current) use of anticoagulants; Z82.49 Family history of ischemic heart disease and other diseases of the circulatory system; Z83.3 Family history of diabetes mellitus; Z90.710 Acquired absence of both cervix and uterus; Z96.659 Presence of unspecified artificial knee joint; Z88.8 Allergy status to other drugs, medicaments and biological substances
CPT/HCPCS: 36415; 80053; 81001; 83735; 84484; 85007; 85025; 87086; 93005; J7030; 97110; 97116; 97535; 99285-25; G0378

== ENCOUNTER → 2019-12-10 | Outpatient (CLI) | payer MEDICARE ==
[~2019-12-10] MED LIST changes: +POTA20TA4 PO; -POTA20TA82 PO
--- NOTE | 2019-12-10 11:55 | CARD ---
MR#: [id number] Date of Study: 12/10/2019 Ordering Physician: RYLAN MIRELES, Referring Physician: RYLAN MIRELES Tech: Preeti Ogden RDCS APPROVED REPORT EXAM: Two-dimensional and M-mode echocardiogram with Doppler and color Doppler. INDICATION Atrial Fibrillation 2D DIMENSIONS Left Atrium(2D)3.3 (1.6-4.0cm)IVSd1.3 (0.7-1.1cm) Aortic Root(2D)3.0 (2.0-3.7cm)LVDd4.9 (3.9-5.9cm) LVOT Diameter2.0 (1.8-2.4cm)PWd1.4 (0.7-1.1cm) LVDs2.2 (2.5-4.0cm)FS (%) 30.0 % SV94.7 mlLVEF(%)60.0 (>50%) Aortic Valve AoV Peak Rick.133.0cm/sAoV VTI33.4cm AO Peak GR.7.1mmHgLVOT Peak Rick.95.8cm/s AO Mean GR.4mmHgAVA (VMAX)2.24cm2 SKYLER (VTI)2.84bj0RZ P 1/2 Luyh641kz Mitral Valve MV E Umyvjttl357.1cm/sMV DECEL ELPB008hr MV A Ncbnuofs13.7cm/sE/A Ratio1.4 Tricuspid Valve TR P. Nddjofyw143mi/sRAP FQMYZTLP5cwYj TR Peak Gr.09mgUvYHBQ10axNl Pulmonary Vein S1 Fslzoual11.2cm/sD2 Fyiwnbdb76.0cm/s LEFT VENTRICLE The left ventricle is normal size. There is mild concentric left ventricular hypertrophy. The left ve ntricular systolic function is normal and the ejection fraction is within normal range. The Ejection Fraction is 55-60%. There is normal LV segmental wall motion. Transmitral Doppler flow pattern is Gra de II-pseudonormal filling dynamics. RIGHT VENTRICLE The right ventricle is normal size. The right ventricular systolic function is normal. ATRIA The left atrium size is normal. The right atrium size is normal. The interatrial septum is intact wit h no evidence for an atrial septal defect or patent foramen ovale as noted on 2-D or Doppler imaging. AORTIC VALVE The aortic valve is calcified but opens well. Doppler and Color Flow revealed mild aortic regurgitati on. There is no significant aortic valvular stenosis. MITRAL VALVE The mitral valve is calcified but opens well. Mitral annular calcification is mild. There is no evide nce of mitral valve prolapse. There is no mitral valve stenosis. Doppler and Color-flow revealed mild mitral regurgitation. TRICUSPID VALVE The tricuspid valve is normal in structure and function. Doppler and Color Flow revealed trace tricus pid regurgitation. There is mild pulmonary hypertension. The PA pressure was estimated at 37 mmHg. Th ere is no tricuspid valve stenosis. PULMONIC VALVE The pulmonic valve is not well visualized. Doppler and Color Flow revealed trace pulmonic valvular re gurgitation. There is no pulmonic valvular stenosis. GREAT VESSELS The aortic root is normal in size. The ascending aorta is not well seen. The IVC is normal in size an d collapses >50% with inspiration. PERICARDIAL EFFUSION There is no evidence of significant pericardial effusion. Critical Notification Critical Value: No <Conclusion> The left ventricular systolic function is normal and the ejection fraction is within normal range. Th e Ejection Fraction is 55-60%. There is normal LV segmental wall motion. Doppler and Color Flow revealed mild aortic regurgitation. Doppler and Color Flow revealed trace tricuspid regurgitation. There is mild pulmonary hypertension. The PA pressure was estimated at 37 mmHg. Signed by : Yovani Sharpe, Electronically Approved : 12/10/2019 11:55:03
== END | disposition home or self-care (01) ==
LOC: ECHO 09:51
PROVIDERS: ATTEND Internal Medicine Cardiovascular Disease
DX: I08.0 Rheumatic disorders of both mitral and aortic valves (principal); I27.20 Pulmonary hypertension, unspecified; I48.0 Paroxysmal atrial fibrillation
CPT/HCPCS: 93306